=== PATIENT | female | born 1985 | race African-American/Black ===

== ENCOUNTER 2021-02-23 18:40 | Emergency (ER) | payer OTHER, SELFPAY ==
[2021-02-23] VITALS (7 sets, daily range): BP systolic 105–125; BP diastolic 60–75; PULSE 100–112; RESP 16–20; TEMP 37.5; O2SAT 98–100
--- NOTE | ~2021-02-23 | XR_ITS ---
EXAMINATION: XR chest 1V portable DATE: 02/23/2021 21:53 INDICATION: Shortness of breath and cough. Fever. TECHNIQUE: A single frontal view of the chest was obtained. COMPARISON: None. FINDINGS: Sensitivity is decreased by the patient's body habitus. There is no pneumonia, pleural effu carlton, or pneumothorax. The heart size is normal. IMPRESSION: 1. No acute cardiopulmonary disease. Reviewed, dictated and finalized at location A.
--- NOTE | 2021-02-23 18:49 | ED.GENADULT ---
HPI - General Adult General Chief complaint: Shortness of Breath/Dyspnea Stated complaint: sob Time Seen by Provider: 02/23/21 18:49 Source: patient Mode of arrival: ambulatory Limitations: no limitations History of Present Illness HPI narrative: Patient is here for worsening shortness of breath due to Covid symptoms. She was diagnosed on Friday, 4 days ago, and was for symptomatic 3 days prior to that. She has not been on any medications. She states that she just has exertional dyspnea. She continues to drink well, no cough, no fever. Related Data Allergies Allergy/AdvReac Type Severity Reaction Status Date / Time No Known Allergies Allergy Verified 02/23/21 18:53 Review of Systems Review of Systems: All systems reviewed & are unremarkable except as noted in HPI and below PMFSH Past Medical History Medical History Chlamydia UTI (urinary tract infection) Surgical History Surgical History History of section History of tonsillectomy Social History Social History Smoking status: Never smoker Exam Const: General: no acute distress and alert Orientation/consciousness: patient oriented x3 Other: dyspnea with exertion HENMT: Head: normal to inspection Mouth: Yes moist mucous membranes Throat: posterior oropharynx normal Eyes: Conjunctivae: conjunctivae normal Pupils: Equal, round and reactive pupils present Resp: Effort & Inspection: normal respiratory effort Auscultation: diminished lung sounds on the right Cardio: Rate: tachycardic Rhythm: regular rhythm GI: GI Palp: Yes Soft to palpation Skin: General skin exam: normal color Extrem: General: normal to inspection Psych: Mental Status: mental status grossly normal Course Course Emergency Course: Patient's chest x-ray is read as normal. Results were reviewed with her. Her oxygen level has stayed stable at 100%. Will treat with just dexamethasone at home. Discharge Plan Discharge Clinical Impression: COVID-19 Patient Disposition: Home, Self-Care Condition: Stable Instructions: Antibiotic Form, COVID-19 (Coronavirus Disease 2019) (ED) Additional Instructions: You received your first dose of dexamethasone here in the emergency room, you will need to start tomorrow evening. Continue to take it easy, activity as tolerated. You will have fatigue for some time after the virus is resolved. You may take ibuprofen or Tylenol for discomfort. Prescriptions: New dexamethasone 6 mg tablet 6 mg PO DAILY Qty: 4 RF: 0 No Action lidocaine 4 % adhesive patch,medicated 1 patch TOPICAL Q24H PRN (Reason: pain) 10 Days Qty: 10 RF: 0 ibuprofen 400 mg tablet 400 mg PO TID PRN (Reason: fever or pain) 10 Days Qty: 30 RF: 0 diazepam 5 mg tablet 5 mg PO HS PRN (Reason: pain, moderate) Qty: 10 RF: 0 acetaminophen [Tylenol] 325 mg capsule 325 mg PO ONCE 7 Days Qty: 30 RF: 0 Follow-up/Referrals: Elda,SIL Berg [Primary Care Provider] - Time of Disposition: 21:51
--- NOTE | 2021-02-23 19:30 | PC.NURSE ---
Assumed care of pt at this time, report taken from Larry RATLIFF.
[2021-02-23] MEDS: DEXAMETHASONE 2 MG TABLET 6 MG PO (20:13)
[2021-02-23] MEDS: SODIUM CHLORIDE 0.9% IV 1,000 ML 999 ML IV CONT (20:13)
== END 2021-02-23 22:03 | disposition home or self-care (01) ==
PROVIDERS: Emergency Provider Emergency Medicine; PCP Registered Nurse
DX: U07.1 COVID-19 (principal); Z87.440 Personal history of urinary (tract) infections; R00.0 Tachycardia, unspecified; R94.31 Abnormal electrocardiogram [ECG] [EKG]
CPT/HCPCS: 71045; 93005; 96360; 99283; J7030; J8540

== ENCOUNTER 2021-03-04 22:57 | Observation (INO) | payer OTHER, SELFPAY ==
--- NOTE | ~2021-03-04 | CT_ITS ---
EXAMINATION: CT abdomen pelvis wo con DATE: 03/05/2021 02:38 INDICATION: Right flank pain. Hematuria. TECHNIQUE: Computed tomography (CT) of the abdomen and pelvis was performed without intravenous contr ast. Automated exposure control and iterative reconstruction technique were employed. The dose-length product was 1241.01 mGy-cm. COMPARISON: None. FINDINGS: The visualized portions of the lung bases demonstrate patchy airspace and groundglass opaci ties bilaterally. No pleural effusion. The heart size is normal. No pericardial effusion. The liver, gallbladder, spleen, pancreas, adrenal glands, and left kidney are normal. There is a 1 mm stone in r ight kidney. There are no dilated loops of bowel. The appendix is not visualized. There is physiologi c fluid in the pelvis. There are no pathologically enlarged lymph nodes. There is mild thoracolumbar spondylosis. IMPRESSION: 1. 1 mm nonobstructing right kidney stone. 2. Multifocal lung disease, consistent with COVID-19 pneumonia. Reviewed, dictated and finalized at location A.
--- NOTE | ~2021-03-04 | CT_ITS ---
EXAMINATION: CTA chest PE protocol DATE: 03/05/2021 02:39 INDICATION: Shortness of breath. TECHNIQUE: Computed tomography angiography (CTA) of the chest was performed with 200 mL Omnipaque-350 intravenous contrast timed to evaluate the pulmonary arteries. Coronal maximum intensity projection 3D-reconstructions were created by the technologist. Automated exposure control and iterative reconst ruction technique were employed. The dose-length product was 1290.22 mGy-cm. COMPARISON: None. FINDINGS: There are patchy airspace and groundglass opacities involving all lobes. No pleural effusio n. The heart size is normal. No pericardial effusion. There are pulmonary emboli in basilar right low er lobe. There is mild thoracic spondylosis. IMPRESSION: 1. Acute pulmonary emboli in basilar right lower lobe. 2. Multifocal lung disease, consistent with COVID-19 pneumonia. Reviewed, dictated and finalized at location A.
[2021-03-04 23:00] VITALS: BP 122/85; PULSE 103; RESP 20; TEMP 37.4; O2SAT 99
[2021-03-05] VITALS (29 sets, daily range): BP systolic 97–136; BP diastolic 49–73; PULSE 84–111; RESP 12–30; TEMP 35.7–36.2; O2SAT 95–100; BMI 38.7
[2021-03-05 00:15] LABS: Basophils Percent Auto 0.2 % (0.2-1.2); Eosinophils Percent Auto 0.3 % (0-4.4); Hematocrit 33.4 % (37.0-47.0); Hemoglobin 10.3 g/dL (12.0-15.0); Immature Granulocyte Absolute 0.09 K/mm3 (0.00-0.031); Immature Granulocyte Percent A 0.7 % (0-0.5); Lymphocytes Absolute Auto 2.63 K/mm3 (0.9-3.2); Lymphocytes Percent Auto 21.6 % (18.3-44.2); Mean Corpuscular HGB Conc 30.8 g/dl (32-36); Mean Corpuscular Hemoglobin 22.2 pg (26-34); Mean Corpuscular Volume 72.1 fl (80-100); Mean Platelet Volume 10.3 fl (7.4-10.4); Monocytes Absolute Auto 0.9 K/mm3 (0.1-0.6); Monocytes Percent Auto 7.1 % (2.6-8.5); Neutrophils Absolute Auto 8.5 K/mm3 (1.3-6.7); Neutrophils Percent Auto 70.1 % (45.5-73.1); Platelet Count Result 371 k/mm3 (150-375); Red Blood Count 4.63 M/mm3 (4.2-5.4); Red Cell Distribution Width 14.6 % (11.5-14.5); White Blood Count 12.2 K/mm3 (4.5-10.0)
[2021-03-05 00:22] LABS: Add Urine Microscopic? YES; Appearance Urine Clear (Clear); Bacteria Urine Trace /hpf; Bilirubin Urine Negative (Negative); Blood Urine Negative (Negative); Color Urine Yellow (Yellow); Glucose Urine UA Negative (Negative); Ketones Urine Negative (Negative); Leukocyte Esterase Ur Negative LEU/UL (Negative); Mucus Urine Rare /lpf; Nitrate Urine Negative (Negative); Protein Urine 2+ mg/dL (Negative); Specific Grav Ur 1.028 (1.001-1.035); Squamous Epithelial Cell Urine Many /hpf (Few); WBC Urine 0-3 /hpf
[2021-03-05 00:32] LABS: Anion Gap 6 mmol/L (8-16); Blood Urea Nitrogen 14 mg/dL (7-17); Calcium 9.1 mg/dL (8.4-10.2); Carbon Dioxide 28 mmol/L (22-30); Chloride 104 mmol/L (98-107); Estimated CRCL calculation 112 ml/min; Estimated Glomerular Filt Rate > 60; Glucose 139 mg/dL (65-110); Potassium 4.1 mmol/L (3.4-5.0); Sodium 138 mmol/L (137-145)
--- NOTE | 2021-03-05 01:44 | ED.BACK ---
HPI - Back Pain/Injury General Chief Complaint: Back Pain/Injury Stated Complaint: Right flank pain Time Seen by Provider: 03/05/21 00:40 Source: patient and RN notes reviewed Mode of arrival: ambulatory Limitations: no limitations History of Present Illness HPI Narrative: This is a 35 year old female with COVID who presents for evaluation of right flank pain. She woke up this morning with sudden onset severe right mid back pain. Her pain has been constant and severe. She has taking Tylenol and used a heating pad without any relief. Her pain is worse with inspiration and breathing so she is short of breath. She states her pain does not radiate. She denies nausea or vomiting. She has been having intermittent fever due to her covid diagnosed. She developed symptoms of covid on 02/16/21 and she was found to be positive on 02/19/21 . She was evaluated in ER on 02/23/21 for shortness of breath and she was discharged with dexamethasone. Her chest xray did not show pneumonia at that time. Related Data Allergies Allergy/AdvReac Type Severity Reaction Status Date / Time No Known Allergies Allergy Verified 02/23/21 18:53 Review of Systems Review of Systems: All systems reviewed & are unremarkable except as noted in HPI and below PMFSH Past Medical History Medical History Chlamydia UTI (urinary tract infection) Surgical History Surgical History History of section History of tonsillectomy Social History Social History Smoking status: Never smoker Second hand tobacco smoke exposure: No Alcohol intake: current Substance use: current Substance use type: does not use Spiritual care concerns: No Exam Const: General: no acute distress and alert Orientation/consciousness: patient oriented x3 Eyes: EOM: EOMs intact bilaterally Chest: Chest palpation & inspection: normal inspection of the chest Resp: Effort & Inspection: normal respiratory effort and no retractions Auscultation: clear to auscultation bilaterally Cardio: Rate: regular rate Rhythm: regular rhythm Heart sounds: no murmurs : General: Yes CVA tenderness on the right OB/external & speculum: no herpetic lesions Skin: General skin exam: normal color Rashes: no rashes Neuro: General: patient oriented x3, moves all extremities and CN's II-XI intact bilaterally Psych: Mental Status: mental status grossly normal Affect: normal affect Course Reevaluation(s) Reevaluation #1: I discussed with patient that she was found to have pneumonia due to covid and pulmonary embolism as he cause her pain. She still states she is having severe pain . Will admit. She is agreeable Date: 03/05/21 Time: 05:00 Consultations Consultation #1: I Discussed case with Dr. Alcazar who accepts patient to medical service. Agrees with kevin. Date: 03/05/21 Time: 05:20 Vital Signs Vital signs: Vital Signs Temperature 99.3 F 03/04/21 23:00 Pulse Rate 103 H 03/04/21 23:00 Respiratory Rate 20 03/04/21 23:00 Blood Pressure 122/85 03/04/21 23:00 Pulse Oximetry 99 03/04/21 23:00 Temperature 99.3 F 03/04/21 23:00 Pulse Rate 96 03/05/21 07:32 Respiratory Rate 14 03/05/21 07:32 Blood Pressure 114/70 03/05/21 07:32 Pulse Oximetry 96 03/05/21 07:32 MDM - Back Pain/Injury Medical Records Attestation: I reviewed the patient's medical records. Lab Data Attestation: I reviewed the patient's lab results. Result diagrams: 03/04/21 23:39 03/04/21 23:39 Labs: Lab Results 03/04/21 03/04/21 03/04/21 Range/Units 23:39 23:39 23:40 WBC 12.2 H (4.5-10.0) K/mm3 RBC 4.63 (4.2-5.4) M/mm3 Hgb 10.3 L (12.0-15.0) g/dL Hct 33.4 L (37.0-47.0) % MCV 72.1 L (80-100) fl MCH 22.2 L (26-34) pg MCHC 30.8 L
[2021-03-05] MEDS: MORPHINE SULFATE (*CRX) 4 MG/ML INJ IV PUSH (01:47)
[2021-03-05] MEDS: ONDANSETRON INJ 4 MG/2 ML VIAL IV PUSH (01:48)
[2021-03-05] MEDS: SODIUM CHLORIDE 0.9% IV 1,000 ML 999 ML IV CONT (01:48)
[2021-03-05 02:59] LABS: Alanine Aminotransferase 21 U/L (4-35); Albumin Level 3.7 g/dL (3.5-5.1); Alkaline Phosphatase 44 U/L (38-126); Aspartate Amino Transferase 27 U/L (14-36); Bilirubin,Total 0.5 mg/dL (0.2-1.3)
[2021-03-05 03:00] LABS: INR 1.1; Prothrombin Time 14.2 Seconds (11.1-14.7)
[2021-03-05 03:01] LABS: Partial Thromboplastin Time 33.1 SECONDS (22.3-36.8)
[2021-03-05] MEDS: HYDROmorphone HCL INJ (*CRX) 1 MG/ML SYR 0.5 MG IV PUSH ×2 (04:19→11:40)
[2021-03-05] MEDS: ENOXAPARIN 120 MG/0.8 ML SYRINGE 110 MG SUB-Q ×2 (06:05→16:45)
--- NOTE | 2021-03-05 06:46 | PC.NURSE ---
SBar faxed to [phone].
--- NOTE | 2021-03-05 07:00 | PC.NURSE ---
Called x 2 to give report. No answer.
--- NOTE | 2021-03-05 07:08 | PC.NURSE ---
report to savanna eastman.
--- NOTE | 2021-03-05 07:57 | ADMGEN ---
This patient, Hilda Greene, was admitted to 3 Med Surg Room 307-01. Patient/family oriented to hospital policies and general routines including ID bracelet, bed and alarms, visiting hours, pain management, procedures, bathroom and other care routines, personal items, smoking policy, room service/diet, and visiting hours. Information on how to activate the Rapid Response Team has been discussed. Patient/Family are encouraged to report perceived risks to care and to ask questions if they do not understand what they are told or what they should do.
--- NOTE | 2021-03-05 11:23 | PM.IMHP ---
H&P: HPI History of Present Illness Date/Time: 03/05/21 11:23 Chief Complaint: Right-sided pain in lower chest Narrative: Patient is a 35-year-old lady with no significant past medical history, other than 3 C sections and COVID infection diagnosed last month for which she was treated as an outpatient with steroids, presenting with approximately 1 veins of severe right-sided pleuritic chest pain. Sharp pain, worse other pain she has felt before nonradiating. Deep breaths make it much worse. Some associated cough, however no hemoptysis. No lower extremity pain, and no period of immobilization. She was diagnosed with COVID few weeks ago, treated as an outpatient with steroids, completed the therapy. She is subjectively short of breath, however not hypoxic. Past medical history: No chronic medical conditions, does have COVID since a few weeks ago. Allergies: Denies any allergies Medications: Does not take any daily medications Family history: No major medical conditions run in her family as far she knows Social history: Denies any significant drug alcohol or tobacco use Surgeries: 3 C sections ER course: Patient is not hypoxic, and afebrile CBC significant for white count of 12.2, hemoglobin of 10.3, liver function studies normal, urinalysis without acute infection, negative chlamydia gonorrhea and Trichomonas test. CT showing multifocal lung disease consistent with COVID, and 1 mm nonobstructing right kidney stone. Acute pulmonary emboli in right lower lobe seen on CT angio, multifocal lung disease consistent with COVID-19. Review of Systems Review of Systems: All systems reviewed & are unremarkable except as noted in HPI and below PMFSH Past Medical History Medical History Chlamydia UTI (urinary tract infection) Surgical History Surgical History History of section History of tonsillectomy Social History Social History Smoking status: Never smoker Second hand tobacco smoke exposure: No Alcohol intake: current Substance use: current Substance use type: does not use Spiritual care concerns: No Meds Home Medications and Allergies Allergies Allergy/AdvReac Type Severity Reaction Status Date / Time No Known Allergies Allergy Verified 02/23/21 18:53 Vital Signs Vital Signs - 24 hr 03/04/21 23:00 03/05/21 01:00 03/05/21 01:28 Temperature 99.3 F Pulse Rate 103 H 110 H Respiratory Rate 20 29 H 25 H Blood Pressure 122/85 Pulse Oximetry 99 100 03/05/21 01:49 03/05/21 02:44 03/05/21 02:45 Temperature Pulse Rate 111 H 97 99 Respiratory Rate 30 H Blood Pressure Pulse Oximetry 98 98 98 03/05/21 03:00 03/05/21 03:17 03/05/21 03:30 Temperature Pulse Rate 97 97 98 Respiratory Rate 24 H Blood Pressure 136/56 L Pulse Oximetry 97 98 98 03/05/21 03:32 03/05/21 03:45 03/05/21 04:05 Temperature Pulse Rate 102 H 98 101 H Respiratory Rate 26 H 26 H Blood Pressure 110/65 Pulse Oximetry 99 97 98 03/05/21 04:15 03/05/21 04:16 03/05/21 04:17 Temperature Pulse Rate 99 99 100 Respiratory Rate 28 H Blood Pressure 106/67 Pulse Oximetry 97 97 97 03/05/21 04:32 03/05/21 04:45 03/05/21 04:47 Temperature Pulse Rate 98 109 H 103 H Respiratory Rate Blood Pressure 101/49 L Pulse Oximetry 97 97 97 03/05/21 05:00 03/05/21 05:21 03/05/21 05:30 Temperature Pulse Rate 100 99 94 Respiratory Rate 26 H Blood Pressure Pulse Oximetry 98 95 97 03/05/21 07:15 03/05/21 07:32 03/05/21 08:00 Temperature Pulse Rate 90 96 94 Respiratory Rate 12 14 Blood Pressure 114/70 Pulse Oximetry 95 96 03/05/21 08:22 Temperature 96.8 F L Pulse Rate 94 Respiratory Rate 22 H Blood Pressure 111/66 Pulse Oximetry 100 Exam Const: General: no acute distr
[2021-03-05 13:43] LABS: Lactic Acid Reflex 0.7 mmol/L (0.7-2.1)
[2021-03-05] MEDS: HYDROcodone/acetaminophen (*CRX) 5-325 MG TABLET 1 TAB PO (16:46)
[2021-03-05 18:51] LABS: Lipase 232 U/L (23-300)
[2021-03-05] MEDS: APIXABAN 5 MG TABLET 10 MG PO (21:17)
[2021-03-06] VITALS (9 sets, daily range): BP systolic 107–113; BP diastolic 58–68; PULSE 80–93; RESP 16–24; TEMP 35.9–36.3; O2SAT 98–100
[2021-03-06] MEDS: ENOXAPARIN 120 MG/0.8 ML SYRINGE 110 MG SUB-Q (06:42)
[2021-03-06 06:51] LABS: Basophils Percent Auto 0.3 % (0.2-1.2); Eosinophils Percent Auto 0.4 % (0-4.4); Hematocrit 28.4 % (37.0-47.0); Hemoglobin 8.8 g/dL (12.0-15.0); Immature Granulocyte Absolute 0.04 K/mm3 (0.00-0.031); Immature Granulocyte Percent A 0.4 % (0-0.5); Lymphocytes Absolute Auto 2.58 K/mm3 (0.9-3.2); Lymphocytes Percent Auto 28.6 % (18.3-44.2); Mean Corpuscular Hemoglobin 22.3 pg (26-34); Mean Corpuscular Volume 71.9 fl (80-100); Mean Platelet Volume 11.2 fl (7.4-10.4); Monocytes Absolute Auto 0.8 K/mm3 (0.1-0.6); Monocytes Percent Auto 8.6 % (2.6-8.5); Neutrophils Absolute Auto 5.6 K/mm3 (1.3-6.7); Neutrophils Percent Auto 61.7 % (45.5-73.1); Platelet Count Result 313 k/mm3 (150-375); Red Blood Count 3.95 M/mm3 (4.2-5.4); Red Cell Distribution Width 14.1 % (11.5-14.5)
[2021-03-06 07:08] LABS: Alanine Aminotransferase 20 U/L (4-35); Albumin Level 3.6 g/dL (3.5-5.1); Alkaline Phosphatase 45 U/L (38-126); Anion Gap 6 mmol/L (8-16); Aspartate Amino Transferase 22 U/L (14-36); Bilirubin,Total 0.8 mg/dL (0.2-1.3); Blood Urea Nitrogen 10 mg/dL (7-17); Calcium 8.3 mg/dL (8.4-10.2); Carbon Dioxide 23 mmol/L (22-30); Chloride 107 mmol/L (98-107); Estimated CRCL calculation 146 ml/min; Estimated Glomerular Filt Rate > 60; Glucose 106 mg/dL (65-110); Magnesium 1.9 mg/dL (1.6-2.3); Phosphorus 3.9 mg/dL (2.5-4.5); Potassium 4.1 mmol/L (3.4-5.0); Sodium 136 mmol/L (137-145)
[2021-03-06] MEDS: APIXABAN 5 MG TABLET 10 MG PO (09:33)
--- NOTE | 2021-03-06 13:41 | PC.NURSE ---
On 03/06/21, the student, [Donna Bermeo], provided care and completed [facility] documentation on this patient. I have reviewed the student's documentation and agree with the findings.
--- NOTE | 2021-03-06 14:43 | PM.DS ---
DS: Admitting Diagnosis Discharge Date 03/06/21 Admitting Diagnosis (1) Microcytic anemia: Code(s): D50.9 - Iron deficiency anemia, unspecified Status: Acute (2) Pulmonary embolism: Code(s): I26.99 - Other pulmonary embolism without acute cor pulmonale Status: Acute (3) Recent COVID 19 infection in recovery DS: Discharge Diagnosis Discharge Diagnosis (1) Microcytic anemia: Code(s): D50.9 - Iron deficiency anemia, unspecified Status: Acute (2) Pulmonary embolism: Code(s): I26.99 - Other pulmonary embolism without acute cor pulmonale Status: Acute (3) History of 2019 novel coronavirus disease (COVID-19): Code(s): Z86.16 - Personal history of COVID-19 Status: Acute DS: Summary Hospital Course Reason for hospitalization: chest pain Hospital Course: 35-year-old female who tested positive for coronavirus proximally 1 month ago now considered to be in recovery presents to the emergency room with chief complaint of chest pain. She was subsequently found to have PE on CTA and was admitted for anticoagulation therapy. Patient was transitioned from heparin drip to Eliquis prior to discharge. She has had a benign clinical course is discharged home in stable condition on room air. Three month supply of anticoagulation has been provided to patient at discharge and she is advised to follow-up with her primary care physician for ongoing care. Status at Discharge Functional status at discharge: independent ambulation Overall status at discharge: patient is back to baseline Time Spent with Patient Time attestation: Total time spent providing and/or coordinating discharge services: Exam Const: General: no acute distress Eyes: Sclera: sclerae normal EOM: EOMs intact bilaterally Neck: Neck: no JVD Resp: Effort & Inspection: normal respiratory effort GI: Other: Nondistended : Other: Not indicated Skin: General skin exam: normal color and no erythema Neuro: Other: AAOx3, cranial nerves intact Extrem: General: normal exam except as noted and no edema Psych: Mental Status: mental status grossly normal Speech and movement: Normal speech and movement present Affect: normal affect Thought content: Yes Normal thought content present DS: Data Data Completed and Pending Labs on day of discharge: Labs from last 24 hours 03/06/21 03/06/21 03/05/21 06:32 06:32 18:22 WBC 9.0 RBC 3.95 L Hgb 8.8 L Hct 28.4 L MCV 71.9 L MCH 22.3 L MCHC 31.0 L RDW 14.1 Plt Count 313 MPV 11.2 H Immature Gran % (Auto) 0.4 Neut % (Auto) 61.7 Lymph % (Auto) 28.6 [place] % (Auto) 8.6 H Eos % (Auto) 0.4 Baso % (Auto) 0.3 Lymph # (Auto) 2.58 [place] # (Auto) 0.8 H Eos # (Auto) 0.0 Baso # (Auto) 0.0 Abs Immat Gran (auto) 0.04 H Absolute Neuts (auto) 5.6 Absolute Nucleated RBC 0.0 Nucleated RBC % 0.0 Sodium 136 L Potassium 4.1 Chloride 107 Carbon Dioxide 23 Anion Gap 6 L BUN 10 Creatinine 0.60 L Estim Creat Clear Calc 146 Estimated GFR > 60 Glucose 106 Calcium 8.3 L Phosphorus 3.9 Magnesium 1.9 Total Bilirubin 0.8 AST 22 ALT 20 Alkaline Phosphatase 45 Total Protein 8.0 Albumin 3.6 Lipase 232 Discharge Plan Discharge Attending physician on discharge: Cherelle Breaux Discharging Clinician: Cherelle Breaux Anticipated Discharge Date/Time: 03/06/21 14:35 Patient Disposition: Home, Self-Care Activity: as tolerated Diet: regular Patient Instructions: Antibiotic Form, Apixaban (By mouth), Pulmonary Embolism (GEN), Kidney Stones (GEN), Pain Management (GEN) Stand Alone Forms: General Discharge Information Follow-up/Referrals: Dimitri,SIL Berg [Primary Care Provider] - Discharge Medications: New Eliquis 5 mg Tablet 5 mg PO .ASDIR 90 Days Qty: 94 RF: 0 acetaminophen [Tylenol] 325 mg tablet 325
== END 2021-03-06 16:14 | disposition home or self-care (01) ==
LOC: ANHED 03-05 06:19 → ANH3MEDSUR 03-05 11:29
PROVIDERS: Emergency Medicine; Internal Medicine; Admitting Provider Internal Medicine; Emergency Provider General Practice; PCP Registered Nurse; Visit Provider Hospitalist
DX: I26.99 Other pulmonary embolism without acute cor pulmonale (principal); Z86.16 Personal history of COVID-19; R07.89 Other chest pain; D50.9 Iron deficiency anemia, unspecified; N20.0 Calculus of kidney
CPT/HCPCS: 36415; 71275; 74176; 80048; 80053; 80076; 81001; 81025; 83605; 83690; 83735; 84100; 85025; 85610; 85730; 96361; 96372; 96374; 96375; 96376; 99291; A9270; G0378; J1170; J1650; J2270; J2405; J7030; Q9967

== ENCOUNTER 2021-12-12 09:14 | Emergency (ER) | payer OTHER, SELFPAY ==
[2021-12-12] VITALS (9 sets, daily range): BP systolic 124; BP diastolic 64; PULSE 102–120; RESP 15–25; TEMP 38.4; O2SAT 99–100
[2021-12-12 10:06] LABS: Influenza A QL RT-PCR Negative (Negative); Influenza B QL RT-PCR Negative (Negative); SARS-CoV-2 RNA PCR Positive
--- NOTE | 2021-12-12 10:18 | ED.URI ---
HPI - URI/Sore Throat General Chief Complaint: Upper Respiratory Infection Stated Complaint: covid symptoms since yesterday Time Seen by Provider: 12/12/21 09:16 History of Present Illness HPI Narrative: 35-year-old female presents emergency room for evaluation of fever, body aches, headache and sinus congestion. Patient states she has been around sick contacts who been recently diagnosed with COVID. Patient states that symptoms began yesterday, and has been intermittently taking Tylenol and ibuprofen and Mucinex to manage symptoms. Related Data Allergies Allergy/AdvReac Type Severity Reaction Status Date / Time No Known Allergies Allergy Verified 02/23/21 18:53 Review of Systems Review of Systems: CONSTITUTIONAL: Reports fever chills EYES: Denies visual changes, redness, or discharge. ENT: Reports rhinorrhea, congestion, sore throat, or otalgia. CARDIOVASCULAR: Denies chest pain, palpitations, or edema. RESPIRATORY: Reports cough GASTROINTESTINAL: Denies abdominal pain, nausea, vomiting, or diarrhea. GENITOURINARY: Denies dysuria or hematuria. SKIN: Denies rash or itching. MUSCULOSKELETAL: Denies back pain, joint pain, or myalgia. NEUROLOGIC: Denies headache, numbness, dizziness, or weakness. PSYCHIATRIC: Denies anxiety or depression. [facility] Past Medical History Medical History Chlamydia UTI (urinary tract infection) Surgical History Surgical History History of section History of tonsillectomy Social History Social History Smoking status: Never smoker Second hand tobacco smoke exposure: No Alcohol intake: current Substance use: current Substance use type: does not use Spiritual care concerns: No Exam Narrative: GENERAL: Ill-appearing, well-nourished, no physical limitations, and in no acute distress. HEAD: Normocephalic, atraumatic. EYES: Conjunctivae normal, PERRLA and EOMI. ENT: External nose normal, Nares clear, no rhinorrhea or epistaxis. Mucous membranes moist. Oropharynx without tonsillar hypertrophy exudate or other lesions. External ears normal, bilateral TMs normal bilaterally NECK: Supple. No meningeal signs. No adenopathy or masses. No carotid bruits or JVD CHEST: Clear to auscultation. No respiratory distress. No wheezes rales or rhonchi. No tenderness. HEART: Regular rate and rhythm. No murmur heard. Normal peripheral pulses. EXTREMITIES: Normal range of motion. No edema. No clubbing or cyanosis SKIN: Warm, dry, no rash. No noted wounds NEURO: No focal deficits. Alert and oriented x3. MAEW. CN's II-XI intact bilaterally, normal gait PSYCH: Cooperative. Normal mood and affect. Course Vital Signs Vital signs: Vital Signs Temperature 38.4 C H 12/12/21 09:20 Pulse Rate 117 H 12/12/21 09:20 Respiratory Rate 24 H 12/12/21 09:20 Pulse Oximetry 99 12/12/21 09:20 Temperature 38.4 C H 12/12/21 09:20 Pulse Rate 117 H 12/12/21 09:20 Respiratory Rate 24 H 12/12/21 09:20 Pulse Oximetry 100 12/12/21 09:34 Oxygen Delivery Room Air 12/12/21 09:34 MDM - URI/Sore Throat Lab Data Labs: Lab Results 12/12/21 Range/Units 09:20 Influenza A (RT-PCR) Negative (Negative) Influenza B (RT-PCR) Negative (Negative) SARS-CoV-2 RNA (RT-PCR) Positive A Discharge Plan Discharge Clinical Impression: COVID-19, Upper respiratory infection Patient Disposition: Home, Self-Care Condition: Stable Instructions: Antibiotic Form, COVID-19 (Coronavirus Disease 2019) (ED) Additional Instructions: Take Tylenol and ibuprofen as needed for pain. Continue taking Mucinex for cough Sudafed for the sinus congestion. Isolate per CDC guidelines. Prescriptions: New pseudoephedrine HCl 60 mg tablet 30 mg PO Q4-6H PRN (Reason: nasal congestion) Qty: 30 0RF Rx Instruct
[2021-12-12] MEDS: ACETAMINOPHEN 500 MG TABLET 1000 MG PO (10:47)
== END 2021-12-12 11:00 | disposition home or self-care (01) ==
LOC: ANHED 10:28
PROVIDERS: Emergency Provider Nurse Practitioner Family; PCP Registered Nurse
DX: U07.1 COVID-19 (principal)
CPT/HCPCS: 87502; 96372; 99283; A9270; C9803; J1100; U0003; U0005

== ENCOUNTER 2022-03-18 07:58 | Emergency (ER) | payer OTHER, SELFPAY ==
[2022-03-18 08:10] VITALS: BP 157/97; PULSE 90; RESP 16; TEMP 37.1; O2SAT 100
[2022-03-18] MEDS: ACETAMINOPHEN 500 MG TABLET 1000 MG PO (08:39)
[2022-03-18] MEDS: IBUPROFEN 400 MG TABLET 800 MG PO (08:39)
[2022-03-18 08:55] LABS: Influenza A QL RT-PCR Negative (Negative); Influenza B QL RT-PCR Negative (Negative); SARS-CoV-2 RNA PCR Negative
--- NOTE | 2022-03-18 08:55 | ED.GENADULT ---
HPI - General Adult General Chief complaint: Upper Respiratory Infection Stated complaint: uri Time Seen by Provider: 03/18/22 08:15 History of Present Illness HPI narrative: This is a 36-year-old female presenting ED with 2 days of URI symptoms. Patient notes that she has had headache, body aches, fever and chills. She hears high as 102 at home. She has taken Tylenol with some relief. She has a sick child at home. She denies chest pain, difficulty breathing, lower extremity edema, nausea vomiting or diarrhea. Related Data Home Medications Medication Instructions Recorded Confirmed No Home Medications 03/18/22 03/18/22 Allergies Allergy/AdvReac Type Severity Reaction Status Date / Time No Known Allergies Allergy Verified 03/18/22 08:15 Review of Systems Review of Systems: CONSTITUTIONAL: Denies night sweats. EYES: No eye pain ENT: Denies rhinorrhea CARDIOVASCULAR: Denies palpitations RESPIRATORY: Denies hemoptysis GASTROINTESTINAL: Denies hematemesis GENITOURINARY: Denies hematuria. SKIN: Denies rash MUSCULOSKELETAL: Denies myalgia. NEUROLOGIC: Denies weakness. PSYCHIATRIC: Denies delusions [facility] Past Medical History Medical History Chlamydia UTI (urinary tract infection) Surgical History Surgical History History of section History of tonsillectomy Social History Social History Smoking status: Never smoker Second hand tobacco smoke exposure: No Alcohol intake: current Substance use: current Substance use type: does not use Spiritual care concerns: No Exam Narrative: APPEARANCE: Patient is well-appearing Head tympanic membranes are normal, no erythema or exudates in the throat EYES: PERRLA/EOMI, NOSE: Normal no drainage NECK: Supple, Trachea midline RESPIRATORY: CTAB, No increased work of breathing. CARDIOVASCULAR: S1S2 appreciated no peripheral edema ABDOMINAL: Soft, nontender, nondistended, MUSCULOSKELETAl: No obvious deformities NEURO: Alert. Moving 4/4 extremities SKIN:: Warm, dry. Normal color PSYCHIATRIC: Normal affect Course Vital Signs Vital signs: Vital Signs Temperature 98.8 F 03/18/22 08:10 Pulse Rate 90 03/18/22 08:10 Respiratory Rate 16 10/31/22 08:10 Blood Pressure 157/97 H 03/18/22 08:10 Pulse Oximetry 100 03/18/22 08:10 Oxygen Delivery Room Air 03/18/22 08:10 Temperature 98.8 F 03/18/22 08:10 Pulse Rate 90 03/18/22 08:10 Respiratory Rate 16 03/18/22 08:10 Blood Pressure 157/97 H 03/18/22 08:10 Pulse Oximetry 100 03/18/22 08:10 Oxygen Delivery Room Air 03/18/22 08:10 Medical Decision Making MDM Narrative Medical decision making narrative: This a 36-year-old female presenting with URI symptoms. Flu and COVID been ordered. All tests were negative. She has been given Motrin Tylenol. She is well appearing with stable vital signs. Patient will be discharged with supportive care. Vital Signs Vital Signs: Vital Signs Temperature 98.8 F 03/18/22 08:10 Pulse Rate 90 03/18/22 08:10 Respiratory Rate 16 03/18/22 08:10 Blood Pressure 157/97 H 03/18/22 08:10 Pulse Oximetry 100 03/18/22 08:10 Oxygen Delivery Room Air 03/18/22 08:10 Temperature 98.8 F 03/18/22 08:10 Pulse Rate 90 03/18/22 08:10 Respiratory Rate 16 03/18/22 08:10 Blood Pressure 157/97 H 03/18/22 08:10 Pulse Oximetry 100 03/18/22 08:10 Oxygen Delivery Room Air 03/18/22 08:10 Lab Data Labs: Lab Results 03/18/22 Range/Units 08:14 Influenza A (RT-PCR) Negative (Negative) Influenza B (RT-PCR) Negative (Negative) SARS-CoV-2 RNA (RT-PCR) Negative Discharge Plan Discharge Clinical Impression: URI (upper respiratory infection) Patient Disposition: Home, Self-Care Condition: Stable Instru
[2022-03-18 09:23] VITALS: BP 137/88; PULSE 95; RESP 16; O2SAT 98
== END 2022-03-18 09:25 | disposition home or self-care (01) ==
PROVIDERS: Emergency Provider Emergency Medicine; PCP Registered Nurse
DX: J06.9 Acute upper respiratory infection, unspecified (principal); Z20.822 Contact with and (suspected) exposure to COVID-19; Z87.440 Personal history of urinary (tract) infections
CPT/HCPCS: 87502; 99283; A9270; U0003; U0005

== ENCOUNTER 2023-05-12 10:16 | Emergency (ER) | payer OTHER, SELFPAY ==
[2023-05-12 10:19] VITALS: BP 152/99; PULSE 80; RESP 16; TEMP 37.3; O2SAT 96
--- NOTE | 2023-05-12 11:35 | ED.EYEPROB ---
HPI - Eye Problem General Chief complaint: Eye Problems Stated complaint: eye pain Time Seen by Provider: 05/12/23 11:27 Source: patient Mode of arrival: ambulatory Limitations: no limitations History of Present Illness HPI Narrative: 37 YEARS OLD FEMALE DROVE HERSELF TO THE EMERGENCY ROOM COMPLAINING OF LEFT EYE PAIN WITH A LOT OF TEARING STARTED YESTERDAY. SHE DENIES ANY FEVER, CHILLS, NAUSEA, VOMITING, HEADACHE OR VISION CHANGE. PATIENT REPORTS HISTORY OF COMMON COLD OVER THE LAST 3 WEEKS WITH NASAL CONGESTION AND THE MULTIPLE BEEN BILLS INSIDE HER NOSTRILS BILATERALLY. PATIENT DOES NOT USE CONTACT LENSES, DENIES ANY POSSIBILITY OF FOREIGN BODY, PAIN MAINLY IN THE EYELIDS. Related Data Allergies Allergy/AdvReac Type Severity Reaction Status Date / Time No Known Allergies Allergy Verified 03/18/22 08:15 Review of Systems Review of Systems: All systems reviewed & are unremarkable except as noted in HPI and below Constitutional: Constitutional: Reports no additional constitutional complaints PMFSH Past Medical History Medical History Chlamydia UTI (urinary tract infection) Surgical History Surgical History History of section History of tonsillectomy Social History Social History Smoking status: Never smoker Second hand tobacco smoke exposure: No Alcohol intake: current Substance use: current Substance use type: does not use Spiritual care concerns: No Exam Narrative: GENERAL APPEARANCE: WELL-DEVELOPED, WELL-NOURISHED SKIN: NORMAL COLOR HEAD: NORMOCEPHALIC, NONTRAUMATIC EYES: CLEAR CONJUNCTIVA, TEARING BILATERALLY MORE ON THE LEFT EYE, SLIGHTLY BFFINESS OF THE LEFT UPPER AND LEFT LOWER EYELID UPPER EYELID FLIPPED SHOWING SLIGHT ERYTHEMATOUS CHANGES, NO BIMPLES OR DISCHARGE ENT: OROPHARYNX NORMAL, EARS NORMAL, MULTIPLE TINY PIMPLE AT THE ENTRANCE OF THE NOSTRILS BILATERALLY NECK: SUPPLE, NONTENDER CHEST AND RESPIRATORY: AIRWAY PATENT, NO RESPIRATORY DISTRESS, NO ACCESSORY MUSCLE USE HEART: REGULAR RATE/RHYTHM ABDOMEN: SOFT, NONTENDER, NO ORGANOMEGALY, QUIET BOWEL SOUNDS VASCULAR: NORMAL PERIPHERAL PULSES, NORMAL CAPILLARY REFILL. MUSCULOSKELETAL: NORMAL RANGE OF MOTION, NONTENDER BACK NEUROLOGIC: ALERT AND ORIENTED ?3, PHYSICIST ACOUSTICS IS NORMAL TESTED, NO GROSS MOTOR DEFICIT Course Vital Signs Vital signs: Vital Signs Temperature 37.3 C 05/12/23 10:19 Pulse Rate 80 05/12/23 10:19 Respiratory Rate 16 05/12/23 10:19 Blood Pressure 152/99 H 05/12/23 10:19 Pulse Oximetry 96 05/12/23 10:19 Oxygen Delivery Room Air 05/12/23 10:19 Temperature 37.3 C 05/12/23 10:19 Pulse Rate 80 05/12/23 10:19 Respiratory Rate 16 05/12/23 10:19 Blood Pressure 152/99 H 05/12/23 10:19 Pulse Oximetry 96 05/12/23 10:19 Oxygen Delivery Room Air 05/12/23 10:19 MDM - Eye Problem MDM Narrative Medical decision making narrative: VISUAL ACUITY 20/30 BILATERALLY, PHYSICAL EXAMINATION SHOWED NO CONJUNCTIVITIS ON THE LEFT EYE, ON THE TEARS AND SLIGHT PUFFINESS OF THE UPPER AND LOWER EYELID, VIRAL CONJUNCTIVITIS IS A POSSIBILITY, MY PLAN TO TREAT WITH POLYTRIM EYE DROPS JUST IN CASE OF BLEPHARITIS. THIS EXAM SHOWED POSSIBLE NASAL STAPH INFECTION., POSSIBLE COLD SORES, pATIENT WILL BE DISCHARGED ON BACTRIM AND BACTROBAN OINTMENT. AND VALTREX. IN THE ED PATIENT RECEIVED 1 TABLET OF NORCO AND 600 MG OF IBUPROFEN P.O. PRIOR TO DISCHARGE WAS ADVISED TO FOLLOW-UP WITH [facility]ANT PHYSIOLOGY TEACHER IF THERE IS NO IMPROVEMENT OR IF SHE IS GETTING WORSE
[2023-05-12] MEDS: IBUPROFEN 600 MG TABLET PO (11:48)
[2023-05-12] MEDS: HYDROcodone/acetaminophen (*CRX) 5-325 MG TABLET 1 TAB PO (11:48)
== END 2023-05-12 12:03 | disposition home or self-care (01) ==
PROVIDERS: Emergency Provider Emergency Medicine; PCP Registered Nurse
DX: H10.9 Unspecified conjunctivitis (principal); A49.02 Methicillin resistant Staphylococcus aureus infection, unspecified site; B00.1 Herpesviral vesicular dermatitis
CPT/HCPCS: 99283; A9270

== ENCOUNTER 2024-06-25 07:38 | Emergency (ER) | payer OTHER, SELFPAY ==
[2024-06-25 07:41] VITALS: BP 148/94; PULSE 113; RESP 14; TEMP 37.2; O2SAT 100
--- OUTSIDE RECORDS SUMMARY | 2024-06-25 07:43 | XMS_ITS | Patient Health Record ---
Author Organization 1 OF [facility] Address [address] [place] [address] Care Team Providers Care Teacher Asst Name Role Phone UNKNOWN, UNKNOWN Primary Care Provider Unavailab Dimitri Yip Unavailable Reason For Referral No Information Social History Tobacco Use: Social History Observation Description Date Details (start date - stop date) Never Smoker NA - NA Tobacco Use/Smoking Question Answer Notes Are you a nonsmoker Problems Problem Type SNOMED Code ICD Code Onset Dates Problem Status W/U Status Risk Notes Problem [id number] Hammertoe of right foot (M20.41) Active confirmed Plan Of Treatment No Information Medical (General) History Surgical History Surgery Date(Month/Year)
--- OUTSIDE RECORDS SUMMARY | 2024-06-25 07:43 | XMS_ITS | Clinical Summary ---
Author Organization [facility] Address [address] [place] [address] Care Team Providers Care Motor Vehicle Assembly Supervisor Name Role Phone Morena Schroeder SUBGRADE ROLLER OPERATOR-AUDIT ANALYST Primary Care Provider Source Comments [facility],non-owned Affiliates and Associated Physician Practices is amultiple site organization consisting of ambulatory clinics and hospital sitesin [place], [place], [place] and [place]. This disclosure is being madepursuant to the Care Everywhere program and may not contain all information available regarding this patient. Last updated 18.[employer]WishBoard Allergies No known active allergies Medications Be aware that medications may not be up to date on this document. Always verify current medications with the patient. No known medications Active Problems Patient Care Coordination No te Formatting of this note migh t be different from the original. [id number] Problem Noted Date Diagnosed Date Obesity, Class III, BMI 40-49.9 (morbid obesity) 09/20/2023 History of 01/17/2020 Syncope 12/29/2019 Chronic right-sided thoracic back pain 0 Abnormal Pap smear 03/26/2009 Overview (08/22/2014): 09/2008 ASCUS, positive HPV 12/2009 ASC-H Pt never came for her colpo 05/2012 HGSIL Colpo 09/23/2012, unsatisfactory, ECC negative Patient declined LEEP at that time Has not had Gardasil History of abnormal cervical Pap smear Resolved Problems Problem Noted Date Diagnosed Date Resolved Date Screen for STD (sexually transmitted disease) 08/27/19 24 09/20/2023 Fever 01/22/2020 02/05/2020 H/O: 06/23/2019 09/20/2023 Overview (12/22/2019): X 2. Desires repeat 06/23/2019 09/20/2023 Overview (06/23/2019): Supervision of : PNL collection date and results: pending 06/23 GCT: 24-28 weeks Tdap: offer at 28 wks HIV: GBS: 35 wga Dating: LMP=9 week US H/H/Plt: Hgb Elec: @massiel(3891)@ Genetic screening or testing: Pap: 01/2019 ASCUS-H/ HPV + needs colpo PP Gc/Chl: pending UCx: Breast/Formula: Family Planning: Flu: Bartholin's gland cyst (recurrent) 09/15/2010 08/22/2014 Overview (09/15/2010): Multiple ER visits since 2008 (~4 ER visits) Fever 04/23/2009 04/24/2009 abnormality in 03/31/2009 04/20/2009 Overview (11/22/2009): Thyroglossal duct cyst Delivered on 04/20/2009 Overweight 03/31/2009 08/22/2014 Overview (03/26/2015): H/O: 03/26/2009 08/22/2014 Anemia 03/26/2009 08/22/2014 Lower urinary tract infectious disease 03/26/2009 08/22/2014 Overview (03/26/2015): Adult BMI 27.0-27.9 kg/sq m 03/26/2009 08/22/2014 Encounter for well woman exa m with routine gynecological exam 09/20/2023 Screening, , for ma lformation by ultrasound 09/20/2023 Maternal obesity affecting p regnancy, antepartum 09/20/2023 Immunizations Name Administration Dates Next Due TDAP (7yrs+) 10/21/2019 Family History Medical History Relation Name Comments None Known Father None Known Mother Relation Name Status Comments Father Mother Alive Social History Tobacco Use Types Packs/Day Years Used Date Smoking Tobacco: Never Smokeless Tobacco: Never Tobacco Cessation:Counseling Given: Not Answered Alcohol Use Standard Drinks/Week Comments No 0 (1 standard drink = 0.6 oz pur e alcohol) PHQ-2 Answer Date Recorded Patient Health Questionnaire-2 Score 0 10/03/2023 Sex and Gender Information Value Date Recorded Sex Assigned at Not on file Gender Identity Not on file Sexual Orientation Not on file Last Filed Vital Signs Vital Sign Reading Time Taken Comments Blood Pressure 140/70 10/03/2023 11:52 AM CDT Pulse 83 01/22/2020 2:52 AM CDT Temperature 35.8 C (96.4 F) 08/15/2020 11:17 AM CDT Respiratory Rate 16 01/23/2020 10:1 5 AM CDT Oxygen Saturation 99% 01/23/2020 10: 15 AM CDT Inhaled Oxygen Concentration - - Weight 118.3 kg (260 lb 12.8 oz) 2023 11:52 AM CDT Height 170.2 cm (5' 7 ) 10/03/2023 11:5 2 AM CDT Body Mass Index 40.85 10/03/2023 11:52 AM CDT Plan of Treatment Upcoming Encounters Date Type Department Care Team (Late st Contact Info) Description 09/01/2024 11:10 AM CDT Office Visit [facility] - ANESTHESIOLOGIST/PHYSICIAN [address] [place] [address] Yarelis Arauz, SUBGRADE ROLLER OPERATOR-PRESTON [address] [place] [address] Health Maintenance Due Date Last Done Comments HEPATITIS B VACCINE (1 of 3 - 19+ 3-dose series) 12/23/2006 COVID-19 VACCINE ( - 2023- season) 2024 04/07/2021, 03/17/2021 INFLUENZA VACCINE (#1) 2024 DEPRESSION SCREENING 05/19/2024 08/27/2023 PAP with HPV 08/26/2028 08/27/2023, 08/17, 02/10/2019, Additional history exists DTAP/TDAP/TD VACCINES (2 - Td or Tdap) 10/20/2029 10/21/2019 ZOSTER VACCINE (1 of 2) 12/23/2037 HEPATITIS C SCREENING Completed 02/10/2019 , 12/31/2017, 09/11/2015, Additional history exists HIV SCREENING Completed 08/27/2023, 08/2019, 06/23/2019, Additional history exists HIB VACCINE Aged Out No longer eligi ble based on patient's age to complete this topic HPV VACCINE Aged Out No longer eligi ble based on patient's age to complete this topic MENINGOCOCCAL (Group B) VACCINE Aged Out No longer eligible based on patient's age to complete this topic MENINGOCOCCAL VACCINE Aged Out No sherin jose eligible based on patient's age to complete this topic PNEUMOCOCCAL VACCINE Aged Out No long er eligible based on patient's age to complete this topic Procedures Procedure Name Priority Date/Time Associated Diagnosis Comments HPV DETECTION HIGH RISK CHLOE Routine 08/27/2023 3:57 PM CDT Encounter for well woman exam with routine gynecological exam HIV-1 HIV-2 ANTIBODY + HIV P24 AG PANEL Routine 08/27/2023 Screen for STD (sexually transmitted disease) HEPATITIS C ANTIBODY Routine 02/10/2019 12:24 PM CDT Encounter for well woman exam with routine gynecological exam from Last 3 Months or Most Recently Relevant to Health Maintenance Results * (ABNORMAL) HPV DETECTION HIGH RISK CHLOE (08/27/2023 3:57 PM CDT) High Risk Human Papilloma Result Detected( A) Not detected 09/03/2023 6:07 AM CDT [facility] High Risk Human Papilloma Interp 09/03/2023 6:07 AM CDT [facility] Comment:High Risk Human Yonatan lloma Virus - Detected Pathology/Cytolo gy MISCELLANEOUS SAMPLES / Unknown 08/27/2023 3:57 PM CDT 08/28/2023 11:46 AM CDT Narrative [facility] - 09/03/2023 6:07 AM CDT Nucleic acid isolated from the specimen was analyzed with a nucleic acid amplification test (FDA approved Gen-Probe HPV Assay) to detect high risk human papilloma virus (Types: 16, 18, 31, 33, 35, 39, 45, 51, 52, 56, 58, 59, 66, and 68). The reference range is Not Detected . Comment: These test results should not be used as the sole basis for clinical assessment and treatment of patients. These results should always be correlated with other available data (cytology, histology, and clinical information). Yarelis Arauz [facility] - MICROBIOLOGY ORDERABLES [facility] [address] [place] [address], [place] [phone] * HIV-1 HIV-2 ANTIBODY + HIV P24 AG PANEL (08/27/2023) HIV Screen 4th Generation w Reflex NON-REACT DONNA NON-REACT DONNA [facility] Comment: HIV-1 antigen and HIV-1/HIV-2 antibodies were not detected. There is no laboratory evidence of HIV infection. PLEASE NOTE: This information has been disclosed to you from records whose confidentiality may be protected by state law. If your state requires such protection, then the state law prohibits you from making any further disclosure of the information without the specific written consent of the person to whom it pertains, or as otherwise permitted by law. A general authorization for the release of medical or other information is NOT sufficient for this purpose. For additional information please refer to http://education.Integrate.CCTV Wireless/faq/TUH496 (This link is being provided for informational/ educational purposes only.) The performance of this assay has not been clinically validated in patients less than 2 years old. Test Performed at: [facility] [address] [place] [address] RAZA HARDIN MD Blood BLOOD SPECIMEN / Unknown 08/27/2023 08/27/2023 2:57 PM CDT Yarelis Arauz APRN-AUDIT ANALYST LAB - CHEMISTRY OR DERABLES Performing Organization Address [facility] de Phone Number [facility] [address] [place] [address] * HEPATITIS C ANTIBODY (02/10/2019 12:24 PM CDT) HCV Antibody Screen Non Reactive Non Reactive 02/10/2019 1:41 PM CDT [facility] HCV S/C Ratio 0.07 0.00 - 0.79 02/10/2019 1:41 PM CDT [facility] Comment: Tvnqfj-aj-ndhtax ratio (S/CO) <0.80: Non Reactive Blood BLOOD SPECIMEN / Unknown Venipuncture / Unknown 02/10/2019 12:24 PM CDT 02/10/2019 12:47 PM CDT Narrative [facility] - 02/10/2019 1:41 PM CDT Non Reactive - Antibodies to Hepatitis C virus (HCV) were not detected, result does not exclude early acute HCV infection. Louise Gardner MD LAB - CHEMISTRY O RDERABLES Performing Organization Address [facility] de Phone Number [facility] [address] [place] [address] from Last 3 Months or Most Recently Relevant to Health Maintenance Advance Directives * Full Code (Latest Code Status on File) Date Activated Date Inactivated Comments 01/17/2020 8:51 AM 01/20/2020 2:23 PM * Full Code Date Activated Date Inactivated Comments 12/29/2019 1:31 AM 12/29/2019 5:49 AM * Full Code Date Activated Date Inactivated Comments 04/20/2009 5:46 PM 04/25/2009 4:05 AM * Full Code Date Activated Date Inactivated Comments 04/13/2009 2:35 AM 04/13/2009 5:15 PM * Full Code Date Activated Date Inactivated Comments 03/31/2009 9:45 AM 04/01/2009 5:37 AM Care Teams Motor Vehicle Assembly Supervisor Relationship Specialty Start Date End Date Morena Schroeder APRN-AUDIT ANALYST [address] [place] [id number] PCP - General 06/23/19
--- OUTSIDE RECORDS SUMMARY | 2024-06-25 07:43 | XMS_ITS | Patient Health Summary ---
Author Organization [facility] Address [address] [place] [address] Care Team Providers Care Campaign Advisor Name Role Phone Morena Schroeder EDUCATION AND TRAINING MANAGER-INSIDE SALES CONSULTANT Primary Care Provider Note from [facility],non-owned Affiliates and Associated Physician Practices is amultiple site organization consisting of ambulatory clinics and hospital sitesin [place], [place], [place] and [place]. This disclosure is being madepursuant to the Care Everywhere program and may not contain all information available regarding this patient. Last updated 18.[facility] Allergies No known active allergies Medications Be aware that medications may not be up to date on this document. Always verify current medications with the patient. 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) 09/20/2023 History of 01/17/2020 Syncope 12/29/2019 Chronic right-sided thoracic back pain 0 Abnormal Pap smear 03/26/2009 History of abnormal cervical Pap smear Resolved Problems Problem Noted Date Diagnosed Date Resolved Date Screen for STD (sexually transmitted disease) 08/27/19 24 09/20/2023 Fever 01/22/2020 02/05/2020 H/O: 06/23/2019 09/20/2023 06/23/2019 09/20/2023 Bartholin's gland cyst (recurrent) 09/15/2010 08/22/2014 Fever 04/23/2009 04/24/2009 abnormality in 03/31/2009 04/20/2009 Overweight 03/31/2009 08/22/2014 H/O: 03/26/2009 08/22/2014 Anemia 03/26/2009 08/22/2014 Lower urinary tract infectious disease 03/26/2009 08/22/2014 Adult BMI 27.0-27.9 kg/sq m 03/26/2009 08/22/2014 Encounter for well woman exa m with routine gynecological exam 09/20/2023 Screening, , for ma lformation by ultrasound 09/20/2023 Maternal obesity affecting p regnancy, antepartum 09/20/2023 Immunizations * TDAP (7yrs+)(Given 10/21/2019) Social History Tobacco Use Types Packs/Day Years [...] Mass Index 40.85 10/03/2023 11:52 AM CDT Procedures * PATHOLOGY TISSUE(Performed 09/16/2023) Performed for ASCUS with positive high risk HPV cervical * HCG URINE QUALITATIVE - POINT OF CARE (AMB)(Performed 09/16/2023) Performed for ASCUS with positive high risk HPV cervical * PAP IMAGE-GUIDED W HPV+CT/NG+TRICH(Performed 08/27/2023) Performed for Encounter for well woman exam with routine gynecological exam * HPV GENOTYPES 16,18/45(Performed 08/27/2023) Performed for Encounter for well woman exam with routine gynecological exam * C. TRACHOMATIS + N. GONORRHOEAE + TRICH CHLOE(Performed 08/27/2023) Performed for Encounter for well woman exam with routine gynecological exam * HPV DETECTION HIGH RISK CHLOE(Performed 08/27/2023) Performed for Encounter for well woman exam with routine gynecological exam * TREPONEMA PALLIDUM POS REFLX RPR(Performed 08/27/2023) Performed for Screen for STD (sexually transmitted disease) * HIV-1 HIV-2 ANTIBODY + HIV P24 AG PANEL(Performed 08/27/2023) Performed for Screen for STD (sexually transmitted disease) * IMAGING/RADIOLOGY/XRAY RESULTS ORDER(Performed 01/26/2020) * LACTIC ACID BLOOD(Performed 01/22/2020) Performed for Fever, unspecified fever cause * LACTIC ACID BLOOD(Performed 01/22/2020) Performed for Fever, unspecified fever cause * CULTURE BLOOD(Performed 01/22/2020) Performed for Fever, unspecified fever cause * CULTURE BLOOD(Performed 01/22/2020) Performed for Fever, unspecified fever cause * XR CHEST 1VW PORTABLE(Performed 01/22/2020) Performed for Fever, unspecified fever cause * URINE MICROSCOPIC ONLY(Performed 01/22/2020) Performed for Fever, unspecified fever cause * URINALYSIS REFLEX TO MICROSCOPIC NO CULTURE(Performed 01/22/2020) Performed for Fever, unspecified fever cause * CULTURE URINE(Performed 01/22/2020) Performed for Fever, unspecified fever cause * PROTEIN CREATININE RATIO URINE RANDOM PNL(Performed 01/22/2020) Performed for Fever, unspecified fever cause * LDH BLOOD(Performed 01/22/2020) Performed for Fever, unspecified fever cause * CBC W AUTO DIFFERENTIAL(Performed 01/22/2020) Performed for Fever, unspecified fever cause * COMPREHENSIVE METABOLIC PANEL(Performed 01/22/2020) Performed for Fever, unspecified fever cause * LACTIC ACID BLOOD(Performed 01/22/2020) Performed for Fever, unspecified fever cause * IMAGING/RADIOLOGY/XRAY RESULTS ORDER(Performed 01/21/2020) * CBC W AUTO DIFFERENTIAL(Performed 01/18/2020) * BLOOD GASES CORD ARTERIAL(Performed 01/17/2020) * BLOOD GASES CORD KEVIN(Performed 01/17/2020) * NEURAXIAL BLOCK(Performed 01/17/2020) * SECTION (REPEAT)(Performed 01/17/2020) * PREPARE RBC LEUKOREDUCED UNIT(Performed 01/17/2020) Performed for History of * BLOOD TYPE VERIFICATION(Performed 01/17/2020) * TYPE + SCREEN PANEL(Performed 01/17/2020) * CBC W AUTO DIFFERENTIAL(Performed 01/17/2020) * URINALYSIS - POINT OF CARE (AMB) [facility](Performed 01/13/2020) Performed for Encounter for supervision of other normal in third trimester ([facility]) * URINALYSIS - POINT OF CARE (AMB) [facility](Performed 01/06/2020) Performed for Encounter for supervision of other normal in third trimester ([facility]) * URINALYSIS - POINT OF CARE (AMB) [facility](Performed 12/30/2019) Performed for Encounter for supervision of other normal in third trimester ([facility]) * NONSTRESS TEST(Performed 12/29/2019) Performed for Syncope, unspecified syncope type * URINE MICROSCOPIC ONLY REFLEX TO CULTURE(Performed 12/29/2019) Performed for Abdominal cramping * URINALYSIS REFLEX MICROSCOPIC REFLEX CULTURE(Performed 12/29/2019) Performed for Abdominal cramping * CULTURE URINE(Performed 12/29/2019) Performed for Abdominal cramping * CHLAMYDIA + GC AMPLIFIED PROBE(Performed 12/29/2019) Performed for Abdominal cramping * TRICHOMONAS RAPID TEST(Performed 12/29/2019) Performed for Abdominal cramping * IMAGING/RADIOLOGY/XRAY RESULTS ORDER(Performed 12/23/2019) * CULTURE STREP B(Performed 12/22/2019) Performed for Encounter for supervision of normal in third trimester, unspecified ([facility]) * NH SONO FU OR REPEAT(Performed 12/22/2019) Performed for Marginal insertion of umbilical cord affecting management of mother in third trimester ([facility]) * URINALYSIS - POINT OF CARE (AMB) [facility](Performed 12/22/2019) Performed for Encounter for supervision of normal in third trimester, unspecified ([facility]) * IMAGING/RADIOLOGY/XRAY RESULTS ORDER(Performed 11/23/2019) * NH SONO FU OR REPEAT(Performed 11/22/2019) Performed for Marginal insertion of umbilical cord affecting management of mother in third trimester ([facility]), Evaluate anatomy not seen on prior sonogram, Encounter for ultrasound to assess growth ([facility]) * NH DOPPLER VELOCIMETRY ; UMBILICAL ARTERY(Performed 11/22/2019) Performed for Marginal insertion of umbilical cord affecting management of mother in third trimester ([facility]), Evaluate anatomy not seen on prior sonogram, Encounter for ultrasound to assess growth ([facility]) * URINALYSIS - POINT OF CARE (AMB) [facility](Performed 11/22/2019) Performed for Encounter for supervision of normal in third trimester, unspecified ([facility]) * IMAGING/RADIOLOGY/XRAY RESULTS ORDER(Performed 10/22/2019) * RPR W REFLEX TO TITER+CONFIRM(Performed 10/21/2019) Performed for Encounter for supervision of other normal in second trimester ([facility]) * HIV-1 HIV-2 ANTIBODY + HIV P24 AG PANEL(Performed 10/21/2019) Performed for Encounter for supervision of other normal in second trimester ([facility]) * CBC W AUTO DIFFERENTIAL(Performed 10/21/2019) Performed for Encounter for supervision of other normal in second trimester ([facility]) * GTT 1 HR (50G) GESTATIONAL SCREEN(Performed 10/21/2019) Performed for Encounter for supervision of other normal in second trimester ([facility]) * URINALYSIS - POINT OF CARE (AMB) [facility](Performed 10/21/2019) Performed for Encounter for supervision of other normal in second trimester ([facility]) * URINALYSIS - POINT OF CARE (AMB) [facility](Performed 07/22/2019) Performed for Encounter for supervision of other normal in second trimester ([facility]) * IMAGING/RADIOLOGY/XRAY RESULTS ORDER(Performed 06/24/2019) * HIV-1 HIV-2 ANTIBODY + HIV P24 AG PANEL(Performed 06/23/2019) * HEMOGLOBIN SOLUBILITY REFLX FRAC(Performed 06/23/2019) Performed for Encounter for supervision of other normal in first trimester ([facility]) * PROFILE I W/ HBSAG(Performed 06/23/2019) Performed for Encounter for supervision of other normal in first trimester ([facility]) * CULTURE URINE(Performed 06/23/2019) Performed for Encounter for supervision of other normal in first trimester ([facility]) * C. TRACHOMATIS + N. GONORRHOEAE + TRICH CHLOE(Performed 06/23/2019) Performed for Encounter for supervision of other normal in first trimester ([facility]) * NH ULTRASOUND, UTERUS(Performed 06/23/2019) Performed for Encounter to determine viability of , single or unspecified fetus ([facility]) * URINALYSIS - POINT OF CARE (AMB) [facility](Performed 06/23/2019) Performed for Encounter for supervision of other normal in first trimester ([facility]) * PAP LB HPV HR DNA(Performed 02/10/2019) Performed for Encounter for well woman exam with routine gynecological exam * URINALYSIS REFLEX MICROSCOPIC REFLEX CULTURE(Performed 02/10/2019) Performed for Encounter for well woman exam with routine gynecological exam * TRICHOMONAS RAPID TEST(Performed 02/10/2019) Performed for Encounter for well woman exam with routine gynecological exam * CHLAMYDIA + GC AMPLIFIED PROBE(Performed 02/10/2019) Performed for Encounter for well woman exam with routine gynecological exam * SYPHILIS ANTIBODY CASCADING REFLEX(Performed 02/10/2019) Performed for Well woman exam with routine gynecological exam * HEPATITIS B SURFACE ANTIGEN W RFLX CONFIRMATION(Performed 02/10/2019) Performed for Encounter for well woman exam with routine gynecological exam * HEPATITIS C ANTIBODY(Performed 02/10/2019) Performed for Encounter for well woman exam with routine gynecological exam * HIV-1 HIV-2 ANTIBODY + HIV P24 AG PANEL(Performed 02/10/2019) Performed for Encounter for well woman exam with routine gynecological exam * HCG URINE QUALITATIVE - POINT OF CARE(Performed 02/10/2019) Performed for Encounter for well woman exam with routine gynecological exam * LIPID PROFILE(Performed 12/31/2017) Performed for Women's annual routine gynecological examination * TSH(Performed 12/31/2017) Performed for Women's annual routine gynecological examination * HEMOGLOBIN A1C(Performed 12/31/2017) Performed for Women's annual routine gynecological examination * COMPREHENSIVE METABOLIC PANEL(Performed 12/31/2017) Performed for Women's annual routine gynecological examination * CBC W AUTO DIFFERENTIAL(Performed 12/31/2017) Performed for Women's annual routine gynecological examination * HEPATITIS C ANTIBODY(Performed 12/31/2017) Performed for Women's annual routine gynecological examination * HEPATITIS B SURFACE ANTIGEN W RFLX CONFIRMATION(Performed 12/31/2017) Performed for Women's annual routine gynecological examination * RPR(Performed 12/31/2017) Performed for Women's annual routine gynecological examination * HIV-1 HIV-2 ANTIBODY + HIV P24 AG PANEL(Performed 12/31/2017) Performed for Women's annual routine gynecological examination * TRICHOMONAS RAPID TEST(Performed 12/31/2017) Performed for Women's annual routine gynecological examination * CHLAMYDIA + GC AMPLIFIED PROBE(Performed 12/31/2017) Performed for Women's annual routine gynecological examination * PAP LB RFLX HPV ASCU(Performed 12/31/2017) Performed for Women's annual routine gynecological examination * HPV DNA PROBE HIGH RISK(Performed 12/31/2017) Performed for Women's annual routine gynecological examination * HCG URINE QUALITATIVE - POINT OF CARE(Performed 12/31/2017) Performed for Encounter for well woman exam with routine gynecological exam * PAP LB HPV HR DNA(Performed 09/11/2015) * HIV-1 HIV-2 ANTIBODY + HIV P24 AG PANEL(Performed 09/11/2015) * HEPATITIS SCREEN ACUTE(Performed 09/11/2015) * RPR(Performed 09/11/2015) * CHLAMYDIA + GC AMPLIFIED PROBE(Performed 09/11/2015) * CYTOLOGY CERVICAL/VAG THIN PREP+HPV(Performed 08/22/2014) Performed for Abnormal Pap smear * HEPATITIS SCREEN ACUTE(Performed 08/22/2014) * HIV-1 HIV-2 ANTIBODY + HIV P24 AG PANEL(Performed 08/22/2014) * RPR(Performed 08/22/2014) * CHLAMYDIA + GC AMPLIFIED PROBE(Performed 08/22/2014) * HCG URINE QUALITATIVE - POINT OF CARE(Performed 09/23/2012) * PATHOLOGY TISSUE EXAM (STL)(Performed 09/23/2012) * CARDIAC RHYTHM STRIP ORDER(Performed 08/20/2012) * CULTURE TISSUE+GRAM STAIN(Performed 08/12/2012) Performed for Bartholin's gland cyst (recurrent) * CULTURE ANAEROBE(Performed 08/12/2012) Performed for Bartholin's gland cyst (recurrent) * MARSUPIALIZATION/EXCISION BARTHOLIN'S GLAND/CYST(Performed 08/12/2012) Performed for RECURRENT LEFT BARTHOLIN GLAND CYST * HCG URINE QUALITATIVE - POINT OF CARE(Performed 08/12/2012) * LAB HISTORICAL RESULTS-ONBASE(Performed 08/12/2012) * LAB HISTORICAL RESULTS-ONBASE(Performed 08/12/2012) * LAB HISTORICAL RESULTS-ONBASE(Performed 08/12/2012) * LAB HISTORICAL RESULTS-ONBASE(Performed 08/12/2012) * TYPE + SCREEN PANEL(Performed 08/07/2012) Performed for Preoperative examination, unspecified * CBC W/O DIFFERENTIAL(Performed 08/07/2012) Performed for Preoperative examination, unspecified * CYTOLOGY CERVICAL/VAG PAP SCREEN THIN PREP(Performed 06/17/2012) * CHLAMYDIA + GC AMPLIFIED PROBE(Performed 06/17/2012) * HCG URINE QUALITATIVE - POINT OF CARE(Performed 09/15/2010) * CYTOLOGY CERVICAL/VAG DIAG THIN PREP(Performed 01/10/2010) * CHLAMYDIA + GC AMPLIFIED PROBE(Performed 01/10/2010) * HCG URINE QUALITATIVE - POINT OF CARE(Performed 01/10/2010) * CULTURE WOUND(Performed 06/28/2009) Performed for Unspecified Symptom Associated With Female Genital Organs * HCG URINE QUALITATIVE - POINT OF CARE(Performed 06/28/2009) * APHERESIS/TRANSFUSION ORDER(Performed 04/27/2009) * IMAGING/RADIOLOGY/XRAY RESULTS ORDER(Performed 04/27/2009) * CULTURE URINE(Performed 04/23/2009) Performed for Fever * CBC W AUTO DIFFERENTIAL(Performed 04/23/2009) Performed for Fever * CBC W AUTO DIFFERENTIAL(Performed 04/21/2009) Performed for Other Curr Cond Preg-Unsp * BLOOD GASES CORD KEVIN(Performed 04/21/2009) * BLOOD GASES CORD ARTERIAL(Performed 04/21/2009) * CBC W AUTO DIFFERENTIAL(Performed 04/20/2009) Performed for Other Curr Cond Preg-Unsp * TYPE SCRN XMATCH RBC X2(Performed 04/20/2009) * TYPE SCRN XMATCH RBC X2(Performed 04/20/2009) * TYPE SCRN XMATCH RBC X2(Performed 04/20/2009) * TRANSFUSE RED BLOOD CELLS(Performed 04/20/2009) * TYPE + SCREEN PANEL(Performed 04/20/2009) * GLUCOSE PROTEIN KETONE URINE - POINT OF CAR(Performed 04/20/2009) * CBC W AUTO DIFFERENTIAL(Performed 04/20/2009) * GLUCOSE PROTEIN KETONE URINE - POINT OF CAR(Performed 04/13/2009) * URINALYSIS OBSTETRICS - POINT OF CARE(Performed 04/11/2009) * LS RATIO AMNIOTIC FLUID(Performed 03/31/2009) Performed for Abn NEC-Antepar (HCC) * LUNG MATURITY(Performed 03/31/2009) Performed for Abn NEC-Antepar (HCC) * GROSS + MICRO EXAM(Performed 03/31/2009) * CYTOLOGY NON-COB SAWYER PANEL(Performed 03/31/2009) * CYTOLOGY NON-COB SAWYER PANEL(Performed 03/31/2009) * GROSS + MICRO EXAM(Performed 03/31/2009) Performed for Abn NEC-Antepar (HCC) * CYTOLOGY NON-COB SAWYER PANEL(Performed 03/31/2009) Performed for Abn NEC-Antepar (HCC) * CYTOLOGY NON-COB SAWYER PANEL(Performed 03/31/2009) Performed for Abn NEC-Antepar (HCC) * LAB MISC TEST(Performed 03/31/2009) Performed for Abn NEC-Antepar (HCC) * AMYLASE FLUID(Performed 03/31/2009) Performed for Abn NEC-Antepar (HCC) * TYPE SCRN XMATCH RBC X1(Performed 03/31/2009) Performed for Abn NEC-Antepar (HCC) * TYPE SCRN XMATCH RBC X2(Performed 03/31/2009) Performed for Abn NEC-Antepar (HCC) * CBC W AUTO DIFFERENTIAL(Performed 03/31/2009) Performed for Abn NEC-Antepar (HCC) * TYPE + SCREEN PANEL(Performed 03/29/2009) Performed for Suprv High-Risk Preg NEC * COMPREHENSIVE METABOLIC PANEL(Performed 03/29/2009) Performed for Suprv High-Risk Preg NEC * CBC W AUTO DIFFERENTIAL(Performed 03/29/2009) Performed for Suprv High-Risk Preg NEC * SONOGRAM - COMPLETE(Performed 04/06/2008) Results * PATHOLOGY TISSUE (09/16/2023 11:37 AM CDT) Case Report Surgical Pathology Report Case: [id number] Authorizing Provider: Arielle Simmons MD Collected: 09/16/2023 11:37 AM Ordering Location: [facility] - Received: 09/17/2023 01:56 PM [employer] Pathologist: Avani Rowland MD Specimens: A) - Cervix, 3:00 Bx 1 B) - Endocervix Curettings, ECC 09/18/2023 12:22 PM CDT [facility] Final Diagnosis Uterus, cervix, 3:00, biopsy (A): - Fragments of benign squamous mucosa and stroma with mild chronic inflammation and reactive changes - Negative for dysplasia or carcinoma Uterus, endocervix, curettage (B): - Fragments of unremarkable endocervical mucosa and a scant fragment of squamous epithelium with reactive changes - Negative for dysplasia or carcinoma 09/18/2023 12:22 PM CDT [facility] Microscopic Description and Comment Microscopic examination substantiates the final diagnosis. 09/18/2023 12:22 PM [facility] Clinical History The patient is a 37-year-old woman with a history of abnormal Pap smears who underwent cervical biopsy and curettage. 09/18/2023 12:22 PM [facility] Gross Description The requisition and specimen(s) are identified with the patient's name, Hilda Greene. Received in formalin, specimen A , are 2 zendejas-white soft tissue fragments measuring 0.3 x 0.2 x 0.1 and 0.7 x 0.3 x 0.1 cm. Submitted in toto in A1. Received in formalin, specimen B are multiple zendejas-white soft tissue fragments intermixed with mucoid material aggregating to 3.0 x 2.0 x 0.1 cm. Submitted in toto in B1. MSL 09/18/2023 12:22 PM [facility] Pathologist Location at [facility] 09/18/2023 12:22 PM [facility] Disclaimer The performance characteristics of all immunohistochemical and indirect immunofluorescence stains (if any) cited in this report were determined by the [facility]. Some of these tests were developed by our own laboratory and have not been cleared or approved by the US Food and Drug Administration. The FDA does not require this test to go through premarket FDA review. These tests are used for clinical purposes. They should not be regarded as investigational or for research. This laboratory is certified under the Clinical Laboratory Improvement Amendments (CLIA) as qualified to perform high complexity clinical laboratory testing. This case has been personally reviewed and interpreted by the attending (teaching) pathologist. 09/18/2023 12:22 PM [facility] Embedded Images 09/18/2023 12:22 PM [facility] Pathology/Cytology CURETTINGS / Unknown 09/16/2023 11:37 AM CDT 09/17/2023 1:56 PM CDT Miscellaneous samples (specimen) CURETTINGS / Unknown 09/16/2023 11:37 AM CDT 09/17/2023 1:56 PM CDT Arielle Simmons MD LAB - PATHOLOGY/C YTOLOGY ORDERABLES [facility] [address] [place] [address], [facility] [phone] * HCG URINE QUALITATIVE - POINT OF CARE (AMB) (09/16/2023 10:54 AM CDT) HCG Qual Urine Negative Negative [facility] [address] QC Verified Yes Yes [facility] [address] Urine URINE / Unknown 09/16/2023 1 0:54 AM CDT Arielle Simmons MD LAB - POINT OF CA RE ORDERABLES Performing Organization Address City/[facility]/ZIP Co de Phone Number [facility] [address] [place] [address], [facility] [phone] * (ABNORMAL) HPV DETECTION HIGH RISK CHLOE (08/27/2023 3:57 PM CDT) High Risk Human Papilloma Result Detected( A) Not detected 09/03/2023 6:07 AM CDT [facility] High Risk Human Papilloma Interp 09/03/2023 6:07 AM CDT [facility] Comment:High Risk Human Yonatan lloma Virus - Detected Pathology/Cytolo gy MISCELLANEOUS SAMPLES / Unknown 08/27/2023 3:57 PM CDT 08/28/2023 11:46 AM CDT Narrative [facility] - 09/03/2023 6:07 AM CDT [...] available data (cytology, histology, and clinical information). Yarelislori Arauz EDUCATION AND TRAINING MANAGER-[facility] - MICROBIOLOGY ORDERABLES Performing Organization Address [facility] Co de Phone Number [facility] [address] [place] [address] * HPV GENOTYPES 16,18/45 (08/27/2023 3:57 PM CDT) Human papillomavirus Genotype 16 by TMA Not detected Not detected 09/03/2023 10:31 AM CDT [facility] Human papillomavirus Genotype 18/45 by TMA Not detected Not detected 09/03/2023 10:31 AM CDT [facility] Pathology/Cytolo gy MISCELLANEOUS SAMPLES / Unknown 08/27/2023 3:57 PM CDT 08/28/2023 11:46 AM CDT [facility] PATH[facility] - 09/03/2023 10:31 AM CDT This test detects E6/E7 viral messenger RNA of high-risk HPV types 16, 18, 31, 33, 35, 39, 45, 51, 52, 56, 58, 59, 66, and 68 associated with cervical cancer and its precursor lesions. Cross-reactivity with low risk HPV genotypes 26, 67, 70, and 82 may occur. Sensitivity may be affected by specimen collection methods, stage of infection, and the presence of interfering substances. Results should be interpreted in conjunction with other available laboratory and clinical data. Yarelis Arauz APRN-[facility] - MICROBIOLOGY ORDERABLES Performing Organization Address [facility] de Phone Number [facility] [address] [place] [address] * C. TRACHOMATIS + N. GONORRHOEAE + TRICH CHLOE (08/27/2023 3:57 PM CDT) Only the most recent of2 resultswithin the time period is included. Chlamydia Trachomatis CHLOE Not detected Not detected 08/29/2023 2:24 PM CDT [facility] Neisseria Gonorrhoeae CHLOE Not detected Not detected 08/29/2023 2:24 PM CDT [facility] Trichomonas Vaginalis CHLOE Not detected Not detected 08/29/2023 2:24 PM CDT [facility] Pathology/Cytolo gy MISCELLANEOUS SAMPLES / Unknown 08/27/2023 3:57 PM CDT 08/28/2023 11:46 AM CDT Narrative [facility] - 08/29/2023 2:24 PM CDT This analysis was performed using Gen-Probe Aptima Combo 2 and Gen-Probe Aptima Assay. These methodologies are U.S. FDA approved for Chlamydia trachomatis, Neisseria gonorrhoeae testing for urine and urogenital swabs from men and women, and cervical cells submitted in ThinPrep vials. Performance characteristics of testing for Trichomonas vaginalis on specimens using the Gen-Probe Aptima Trichomonas vaginalis Assay on the TurboHeads system and rectal and pharyngeal swabs with Gen-Probe Aptima combo 2 were determined by the Molecular Diagnostics Laboratory at [facility]. They have not been cleared or approved by the U.S Food and Drug Administration (FDA). The FDA has determined that such clearance approval is not necessary. This test is used for clinical purposes and should not be regarded as investigational or for research. This laboratory is certified under the Clinical Laboratory Improvements Amendments of 1988 (CLIA 1988), as qualified to perform high complexity laboratory testing. Yarelis DAVIS LAB - MICROBIOLOGY ORDERABLES [facility] [address] [phone] * PAP IMAGE-GUIDED W HPV+CT/NG+TRICH (08/27/2023 3:57 PM CDT) Case Report Gynecologic Cytology Report Case: [id number] Authorizing Provider: Yarelis Arauz APRN-CNP Collected: 08/27/2023 03:57 PM Ordering Location: [facility] - Received: 08/28/2023 11:46 AM FRUIT TRIMMER First Screen: Verito Gill Pathologist: Mauro Rushing MD Specimen: THINPREP - IMAGE GUIDED, Cervix/Endocervix 09/02/2023 12:26 PM CDT [facility] LMP 3-24 09/02/2023 12:26 PM CDT [facility] Menstrual Status None Applicable 12:26 PM CDT [facility] Specimen Adequacy Satisfactory for evaluation, endocervical/trans formation zone component absent. 09/02/2023 12:26 PM CDT [facility] Categorization Epithelial cell abnormality. 09/02/2023 12:26 PM CDT [facility] Interpretation COB SAWYER Atypical squamous cells of undetermined significance (ASC-US). 09/02/2023 12:26 PM CDT [facility] Pap Footnote The Pap Smear is a screening test. False positive and false negative results occur. Negative results do not preclude abnormalities, thus clinical correlation is required. This specimen was evaluated by the [employer] Imaging System along with an additional manual rescreening by a landfill attendant and/or pathologist. 09/02/2023 12:26 PM CDT [facility] Embedded Images 12:26 PM CDT [facility] Pathology/Cytolo gy MISCELLANEOUS SAMPLES / Unknown 08/27/2023 3:57 PM CDT 08/28/2023 11:46 AM CDT Yarelis Arauz APRN-PRESTON LAB - PATHOLOGY/CY TOLOGY ORDERABLES Performing Organization Address City/State/[facility] Co de Phone Number [facility] [address] [phone] * HIV-1 HIV-2 ANTIBODY + HIV P24 AG PANEL (08/27/2023) Only the most recent of7 resultswithin the time period is included. HIV Screen 4th Generation w Reflex NON-REACT [...] purpose. For additional information please refer to http://education.[employer]/faq/DHH647 (This link is being provided for informational/ educational purposes only.) The performance of this assay has not been clinically validated in patients less than 2 years old. Test Performed at: [employer] [address] [facility] [place] [address] RAZA HARDIN MD Blood BLOOD SPECIMEN / Unknown 08/27/2023 08/27/2023 2:57 PM CDT Yarelis Arauz APRN-INSIDE SALES CONSULTANT LAB - CHEMISTRY OR DERABLES Performing Organization Address [facility] Co de Phone Number [employer] [id number] [place] [address] * TREPONEMA PALLIDUM POS REFLX RPR (08/27/2023) Treponema pallidum Antibody EIA NEGATIVE NEGATIVE [facility] Comment: No antibodies to T. pallidum (the agent causing syphilis) were detected in the specimen. This result, however, does not exclude very recent T. pallidum infection; testing of a second specimen, collected 2-4 weeks after this specimen, is recommended if the index of suspicion for recent infection is high. REPORT COMMENT: FASTING:NO Test Performed at: [employer] [facility] [address] [address] [place] Blood BLOOD SPECIMEN / Unknown 08/27/2023 08/27/2023 2:57 PM CDT Yarelis Arauz APRN-INSIDE SALES CONSULTANT LAB - SEROLOGY ORD ERABLES Performing Organization Address [facility] Co de Phone Number [employer] [phone] [place] [address] * IMAGING RADIOLOGY XRAY RESULTS ORDER (01/26/2020 9:27 AM CDT) Only the most recent of7 resultswithin the time period is included. Anatomical Region Laterality Modality Other Narrative 01/26/2020 9:27 AM CDT Ordered by an unspecified provider. Scanned Document IMAGING * LACTIC ACID BLOOD (01/22/2020 9:57 AM CDT) Only the most recent of3 resultswithin the time period is included. Lactic Acid 0.9 0.5 - 2.2 mmol/L 01/22/2020 10:21 AM CDT [facility] Blood BLOOD SPECIMEN / Unknown Lab Venipuncture / Unknown 01/22/2020 9:57 AM CDT 01/22/2020 10:04 AM CDT Carolann Tony MD LAB - CHEMISTRY O RDERABLES Performing Organization Address City/[facility] Co de Phone Number [facility] [address] [place] [address] * CULTURE BLOOD (01/22/2020 3:51 AM CDT) Only the most recent of2 resultswithin the time period is included. Culture No growth day 5 NANCY 01/27/2020 8:00 AM CDT [facility] MICROBIOLOGY Blood PERIPHERAL BLOOD / Unknown Lab Venipuncture / Unknown 01/22/2020 3:51 AM CDT 01/22/2020 4:10 AM CDT Carolann Tony MD LAB - MICROBIOLOG Y ORDERABLES Performing Organization Address [facility] Co de Phone Number [facility] MICROBIOLOGY [address] [place], [place] [id number] [place] [address] * XR CHEST 1VW PORTABLE (01/22/2020 3:45 AM CDT) Anatomical Region Laterality Modality Chest Radiographic Sarita ging 01/22/2020 9:13 AM CDT Impressions 01/22/2020 9:13 AM CDT Unremarkable. *Reading Radiologist: Suresh Pisano on 01/22/2020 at 9:13 AM Narrative 01/22/2020 9:13 AM CDT Chest, 1 view DATE: 01/22/2020 INDICATION: Fever FINDINGS: Allowing for body habitus, the lungs are clear and free of effusion. The heart, mediastinum and bones are unremarkable. Procedure Note Suresh Pisano MD - 01/22/2020 Chest, 1 view DATE: 01/22/2020 INDICATION: Fever FINDINGS: Allowing for body habitus, the lungs are clear and free of effusion. The heart, mediastinum and bones are unremarkable. IMPRESSION Unremarkable. *Reading Radiologist: Suresh Pisano on 01/22/2020 at 9:13 AM Carolann Tony MD DIAGNOSTIC IMAGIN G ORDERABLES * (ABNORMAL) URINALYSIS REFLEX TO MICROSCOPIC NO CULTURE (01/22/2020 2:55 AM CDT) Color UA Yellow Straw, Yellow 01/22/2020 3:12 AM CDT [facility] Clarity UA Clear Clear 01/22/2020 3:12 AM CDT [facility] Glucose UA Negative Negative 01/22/2020 3:12 AM CDT [facility] Bilirubin UA Negative Negative 01/22/2020 3:12 AM CDT [facility] Ketone UA 1+(A) Negative 01/22/2020 3:12 AM CDT [facility] Specific [place] UA 1.027 1.005 - 1.030 01/22/2020 3:12 AM CDT [facility] Blood UA Negative Negative 01/22/2020 3:12 AM CDT [facility] pH UA 6.0 5.0 - 8.0 pH 01/22/2020 3:12 AM CDT [facility] Protein UA 2+(A) Negative 01/22/2020 3:12 AM CDT [facility] Urobilinogen UA Negative Negative mg/dL 01/22/2020 3:12 AM CDT [facility] Nitrite UA Negative Negative 01/22/2020 3:12 AM CDT [facility] Leukocyte UA Negative Negative 01/22/2020 3:12 AM CDT [facility] Urine Microscopy Urine microscopy to follow 01/22/2020 3:12 AM CDT [facility] Urine URINE SPECIMEN OBTAINED BY SINGLE CATHETERIZATION OF URINARY BLADDER / Unknown Collection / Unknown 01/22/2020 2:55 AM CDT 01/22/2020 3:02 AM CDT Narrative [facility] - 01/22/2020 3:12 AM CDT Carolann Tony MD LAB - URINALYSIS ORDERABLES [facility] [address] [place] [address] * URINE MICROSCOPIC ONLY (01/22/2020 2:55 AM CDT) RBC UA 0-2 None Seen, 0-2, 3-5 # /hpf 01/22/2020 3:14 AM CDT [facility] WBC UA 0-5 None Seen, 0-5 # /hpf 01/22/2020 3:14 AM CDT [facility] Bacteria UA None Seen None Seen 01/22/2020 3:14 AM CDT [facility] Squamous Epithelial Cells 0-2 None Seen, 0-2, 3-5 /hpf 01/22/2020 3:14 AM CDT [facility] Mucus UA 1+ /LPF 01/22/2020 3:14 AM CDT [facility] Urine URINE SPECIMEN OBTAINED BY SINGLE CATHETERIZATION OF URINARY BLADDER / Unknown Collection / Unknown 01/22/2020 2:55 AM CDT 01/22/2020 3:02 AM CDT Narrative [facility] - 01/22/2020 3:14 AM CDT Carolann Tony MD LAB - URINALYSIS ORDERABLES Performing Organization Address [facility] de Phone Number [facility] [address] [place] [address] * CULTURE URINE (01/22/2020 2:55 AM CDT) Only the most recent of4 resultswithin the time period is included. Culture Urine No growth (<100 CFU/mL) NANCY 01/23/2020 8:46 AM CDT [facility] MICROBIOLOGY Urine URINE SPECIMEN OBTAINED BY SINGLE CATHETERIZATION OF URINARY BLADDER / Unknown Collection / Unknown 01/22/2020 2:55 AM CDT 01/22/2020 3:04 AM CDT Carolann Tony MD LAB - MICROBIOLOG Y ORDERABLES Performing Organization Address City/[facility]/ZIP Co de Phone Number [facility] MICROBIOLOGY [address] [place] [address], [facility] [phone] * (ABNORMAL) PROTEIN CREATININE RATIO URINE RANDOM PNL (01/22/2020 2:54 AM CDT) [facility] Protein Urine 63.2(H) <11.9 mg/dL 01/22/2020 3:41 AM CDT [facility] Creatinine Urine 142.00 mg/dL 01/22/2020 3:41 AM CDT [facility] Protein/Creatin ine Ratio Urine 0.45 01/22/2020 3:41 AM CDT [facility] Urine URINE SPECIMEN OBTAINED BY CLEAN CATCH PROCEDURE / Unknown Collection / Unknown 01/22/2020 2:54 AM CDT 01/22/2020 3:02 AM CDT Carolann Tony MD LAB - URINE CHEMI STRY ORDERABLES Performing Organization Address City/State/[facility] Co de Phone Number [facility] [address] [place] [address] * (ABNORMAL) CBC W AUTO DIFFERENTIAL (01/22/2020 2:40 AM CDT) Only the most recent of11 resultswithin the time period is included. [facility] WBC 7.7 4.4 - 10.7 x10E9/L 01/22/2020 2:59 AM CDT [facility] WBC Corrected 01/22/2020 2:59 AM CDT [facility] RBC 3.28(L) 3.80 - 5.20 x10E12/L 01/22/2020 2:59 AM CDT [facility] Hemoglobin 7.5(L) 12.0 - 15.6 gm/dL 01/22/2020 2:59 AM CDT [facility] Hematocrit 23.7(L) 35.9 - 45.5 % 01/22/2020 2:59 AM CDT [facility] MCV 72.3(L) 80.7 - 98.3 fl 01/22/2020 2:59 AM CDT [facility] MCH 22.9(L) 26.7 - 34.0 pg 01/22/2020 2:59 AM CDT [facility] MCHC 31.6 30.8 - 35.9 gm/dL 01/22/2020 2:59 AM CDT [facility] Platelet Count 243 153 - 416 x10E9/L 01/22/2020 2:59 AM CDT [facility] RDW-CV 15.3(H) 12.1 - 14.9 % 01/22/2020 2:59 AM [facility] MPV 11.6 9.4 - 12.9 fl 01/22/2020 2:59 AM [facility] Neutrophils % 70.3 44.0 - 73.0 % 01/22/2020 2:59 AM [facility] Lymphocytes % 17.4(L) 20.0 - 43.0 % 01/22/2020 2:59 AM [facility] Monocytes % 10.2 5.0 - 13.0 % 01/22/2020 2:59 AM [facility] Eosinophils % 0.8 0.0 - 6.0 % 01/22/2020 2:59 AM [facility] Basophils % 0.3 0.0 - 2.0 % 01/22/2020 2:59 AM [facility] Immature Granulocytes 1.0 0 - 1 % 01/22/2020 2:59 AM [facility] Neutrophil Absolute 5.39 2.01 - 7.14 x10E9/L 01/22/2020 2:59 AM [facility] Lymphocytes Absolute 1.33 1.07 - 3.94 x10E9/L 01/22/2020 2:59 AM T [facility] Monocytes Absolute 0.78 0.26 - 1.07 x10E9/L 01/22/2020 2:59 AM [facility] Eosinophils Absolute 0.06 0 - 0.47 x10E9/L 01/22/2020 2:59 AM [facility] Basophils Absolute 0.02 0 - 0.08 x10E9/L 01/22/2020 2:59 AM [facility] Immature Granulocytes Absolute 0.08(H) 0.00 - 0.06 x10E9/L 01/22/2020 2:59 AM [facility] nRBC Auto 0 /100 WBC 01/22/2020 2:59 AM [facility] Blood BLOOD SPECIMEN / Unknown Venipuncture / Unknown 01/22/2020 2:40 AM CDT 01/22/2020 2:42 AM CDT Carolann Tony MD LAB - HEMATOLOGY ORDERABLES [facility] [address] [place] [address] * (ABNORMAL) COMPREHENSIVE METABOLIC PANEL (01/22/2020 2:40 AM CDT) Only the most recent of3 resultswithin the time period is included. Glucose 71 70 - 105 mg/dL 01/22/2020 3:43 AM CDT [facility] Sodium 138 136 - 145 mmol/L 01/22/2020 3:43 AM CDT [facility] Potassium 3.2(L) 3.5 - 5.1 mmol/L 01/22/2020 3:43 AM CDT [facility] Chloride 107 98 - 107 mmol/L 01/22/2020 3:43 AM CDT [facility] CO2 18(L) 23 - 31 mmol/L 01/22/2020 3:43 AM CDT [facility] Calcium 8.4 8.4 - 10.4 mg/dL 01/22/2020 3:43 AM CDT [facility] Anion Gap 13 8 - 16 mmol/L 01/22/2020 3:43 AM CDT [facility] BUN 14 7 - 18.7 mg/dL 01/22/2020 3:43 AM CDT [facility] Creatinine 0.70 0.57 - 1.11 mg/dL 01/22/2020 3:43 AM CDT [facility] Alkaline Phosphatase 87 40 - 150 U/L 01/22/2020 3:43 AM CDT [facility] ALT 23 0 - 61 U/L 01/22/2020 3:43 AM CDT [facility] AST 38(H) 5 - 34 U/L 01/22/2020 3:43 AM CDT [facility] Protein Total 6.6 6.4 - 8.3 gm/dL 01/22/2020 3:43 AM CDT [facility] Albumin 3.0(L) 3.5 - 5.2 gm/dL 01/22/2020 3:43 AM CDT [facility] Bilirubin Total 0.6 0.2 - 1.0 mg/dL 01/22/2020 3:43 AM CDT [facility] eGFR by MDRD >60 >60 mL/min/1.7 3m2 01/22/2020 3:43 AM CDT [facility] eGFR by MDRD >60 >60 mL/min/1.7 3m2 01/22/2020 3:43 AM CDT [facility] Blood BLOOD SPECIMEN / Unknown Venipuncture / Unknown 01/22/2020 2:40 AM CDT 01/22/2020 3:02 AM CDT Carolann Tony MD LAB - CHEMISTRY O RENETTA Performing Organization Address [facility] Co de Phone Number [facility] [address] [place] [address] * (ABNORMAL) LDH BLOOD (01/22/2020 2:40 AM CDT) LDH 267(H) 125 - 220 U/L 01/22/2020 3:43 AM CDT [facility] Blood BLOOD SPECIMEN / Unknown Venipuncture / Unknown 01/22/2020 2:40 AM CDT 01/22/2020 3:02 AM CDT Carolann Tony MD LAB - CHEMISTRY O RENETTA Performing Organization Address [facility] de Phone Number [facility] [address] [place] [address] * (ABNORMAL) BLOOD GASES CORD KEVIN (01/17/2020 11:24 AM CDT) Only the most recent of2 resultswithin the time period is included. pH Cord Venous 7.33 7.28 - 7.40 pH 01/17/2020 11:29 AM CDT [facility] pCO2 Cord Venous 46(H) 35 - 45 mm hg 01/17/2020 11:29 AM CDT [facility] pO2 Cord Venous 36(H) 22 - 33 mm hg 01/17/2020 11:29 AM CDT [facility] HCO3 Cord Venous 24 22 - 24 mmol/L 01/17/2020 11:29 AM CDT [facility] BE Cord Venous -2.0 mmol/L 01/17/2020 11:29 AM CDT [facility] O2 Saturation Cord Venous 78 % 01/17/2020 11:29 AM CDT [facility] Mode Unknown 01/17/2020 11:29 AM CDT [facility] Scott's Test N/A 01/17/2020 11:29 AM CDT [facility] Sample Site [facility] 01/17/2020 11:29 AM CDT [facility] Sample Type Venous 01/17/2020 11:29 AM CDT [facility] Line Crew Supervisor ID [id number] 01/17/2020 11:29 AM CDT [facility] Blood CORD BLOOD SPECIMEN / Unknown 01/17/2020 11:24 AM CDT 01/17/2020 11:24 AM CDT Lavinia Hunt MD LAB - BLOOD GASES OR DERABLES [facility] [address] [place] [address] * (ABNORMAL) BLOOD GASES CORD ARTERIAL (01/17/2020 11:24 AM CDT) Only the most recent of2 resultswithin the time period is included. pH Cord Arterial 7.22 7.20 - 7.34 pH 01/17/2020 11:32 AM CDT [facility] Comment:L pCO2 Cord Arterial 61(H) 45 - 55 mm hg 01/17/2020 11:32 AM CDT [facility] Comment:H pO2 Cord Arterial 11(L) 12 - 25 mm hg 01/17/2020 11:32 AM CDT [facility] Comment:L HCO3 Cord Arterial 24.4(H) 22.0 - 24.0 mmol/L 01/17/2020 11:32 AM CDT [facility] BE Cord Arterial -4.3 mmol/L 01/17/20 20 11:32 AM CDT [facility] Comment:L O2 Saturation Cord Arterial 01/17/2020 11:32 AM CDT [facility] Comment:< Mode Unknown 01/17/2020 11:32 AM CDT [facility] Test N/A 01/17/2020 11:32 AM CDT [facility] Sample Site [facility] 01/17/2020 11:32 AM CDT [facility] Sample Type Arterial 01/17/2020 11:32 AM CDT [facility] RESP THERAP[facility] Line Crew Supervisor ID [id number] 01/17/2020 11:32 AM CDT [facility] Notified Who savanna perez 01/17/2020 11:32 AM CDT [facility] Notification Time 01/17/2020 11:31 01/17/2020 11:32 AM CDT [facility] Notified By rob engle 01/17/2020 11:32 AM CDT [facility] Blood, arterial CORD BLOOD SPECIMEN / Unknown 01/17/2020 11:24 AM CDT 01/17/2020 11:24 AM CDT Lavinia Hunt MD LAB - BLOOD GASES OR DERABLES Performing Organization Address City/State/[facility] Co de Phone Number [facility] [address] [place] [address] * Neuraxial Block (01/17/2020 10:34 AM CDT) Narrative Keara Stack APRN-CRNA - 01/17/2020 10:34 AM CDT Keara Stack APRN-CRNA 01/17/2020 10:51 AM Neuraxial Block Note Pre-Procedure: Procedure Name: Neuraxial Block Patient Location: OB Indications: surgical anesthesia Pre-Anesthetic Checklist: Patient identified, IV Checked, Risks and benefits discussed, Surgical consent verified, Monitors and equipment, Site examined, Pre-op evaluation done, Time-out performed, Informed consent obtained, Questions answered/anesthesia questions answered and Allergies reviewed Anticoagulation/ Anti-thrombosis status confirmed? Yes Supplemental O2: nasal cannula Monitors: BP, continuous pluse ox, EKG and End tidal CO2 Patient Condition: awake Patient Sedated? No Procedure: Block Type: Spinal Prep: Betadine Sterile Field: mask, cap/hat, sterile established and sterile gloves Approach: midline Skin was localized? Yes Skin localized with: lidocaine (XYLOCAINE MPF) 1 % injection, 10 mL Spinal Block: Needle Type: pencil-point Needle Gauge: 24 Needle Length: 102 mm Placement Site: L3-4 Number of Attempts: 1 CSF: free flow, aspiration before injection, aspiration during injection, aspiration after injection Local anesthetics used? Yes Spinal local anesthetics/Additives: morphine PF (DURAMORPH) 0.5 mg/ml injection, 0.1 mg EPINEPHrine (VIAL/AMPULE) 1 MG/ML injection, 0.15 mg bupivacaine 0.75 % in dextrose (SENSORCAINE) injection, 15 mg Degree of difficulty: none Procedure Tolerance: tolerated well Sensory Level: T4 Motor Blockade: Yes Position post procedure: left uterine displacement Vital Signs: Vital sings monitored and stable throughout. See anesthesia record for details., Vital signs moniitored and stable throughout. See nursing vitals flowsheet for details., heart tones monitored and stable throughout. Staff: Anesthesia Provider: Keara Stack APRN-CRNA - performed the procedure Keara Stack APRN-[facility]ESIA ORDERABLES * PREPARE (CROSSMATCH) RBC UNIT(S), 2 Units (01/17/2020 8:53 AM CDT) Unit Description AS1 LR PRBC [facility] Unit ABO B [facility] Unit Rh POS [facility] Product Number R02 [facility] Unit Donor # [id number] [facility] Unit Status released [facility] OD BANK LAB Product [facility] [id number] [facility] BL [facility]OD [facility] Blood Type Barcode 7300 [facility] Expiration Date [facility] Unit Description AS1 LR PRBC [facility] Unit ABO B [facility] Unit Rh POS [facility] Product Number R02 [facility] Unit Donor # [id number] [facility] Unit Status released [facility] Product Code [id number] [facility] Blood Type Barcode 7300 [facility] Expiration Date [facility] Blood Bank BLOOD SPECIMEN / Unknown 01/17/2020 8:53 AM CDT 01/17/2020 8:58 AM CDT Maxx Hernandez MD LAB - BLOOD BANK ORD ERABLES [facility] [address] [place], [place] [id number] [place] [address] * BLOOD TYPE VERIFICATION (01/17/2020 8:53 AM CDT) Pathologist [facility] ABO Rh B POS 01/17/2020 9:4 9 AM CDT [facility] Blood Bank BLOOD SPECIMEN / Unknown Lab Venipuncture / Unknown 01/17/2020 8:53 AM CDT 01/17/2020 9:13 AM CDT Margie Mock MD LAB - BLOOD BANK ORD ERABLES Performing Organization Address City/[facility]/ZIP Co de Phone Number [facility] B[facility] [address] [place] [address] * TYPE + SCREEN PANEL (01/17/2020 8:53 AM CDT) Only the most recent of4 resultswithin the time period is included. ABO Rh B POS 01/17/2020 9:49 AM CDT [facility] Comment:History checked. Antibody Screen NEG 0 9:49 AM CDT [facility] B[facility] Blood Bank BLOOD SPECIMEN / Unknown Venipuncture / Unknown 01/17/2020 8:53 AM CDT 01/17/2020 8:58 AM CDT Ligia Santana MD LAB - BLOOD BANK ORD ERABLES Performing Organization Address City/[facility] Co de Phone Number [facility] [address] [place] [address] * URINALYSIS - POINT OF CARE (AMB) [facility] (01/13/2020) Only the most recent of8 resultswithin the time period is included. Specific [place] UA 1.015 pH UA 6 WBC UA n Nitrite UA n Protein UA n Glucose UA n Ketones UA POCT n Urobilinogen UA n Bilirubin UA POCT n Blood Urine POCT n Urine URINE / Unknown 01/13/2020 Samantha Landon EDUCATION AND TRAINING MANAGER-[facility] LAB - POIN T OF CARE ORDERABLES * NONSTRESS TEST (12/29/2019 4:44 AM CDT) Narrative Brennen Young MD - 12/29/2019 4:44 AM CDT Brennen Young MD 01/07/2020 12:14 PM Name: Vashana J Jc Date of : 1985 Today's Date: 12/29/2019 36w2d NST RESULTS ([facility]) OBJECTIVE FINDINGS Temp: 97.4 F (36.3 C), , , BP: 126/77 NST Indication(s): Other (Comment)(weu visit) Uterine Irritability: Yes Contractions: Not present OBJECTIVE FINDINGS Movement: Present Monitoring Mode: External Baseline: 130 BPM Variability: Moderate Decelerations: None Accelerations: Yes OTHER INFORMATION Eneida Avendano RN PGY-1 Addendum NST: baseline 140 bpm, moderate variability, reactive, 2 variable decelerations present, overall reassuring [place]: rare contractions, irritability Carolann Bray MD 12/30/2019 8:56 PM Attending Note NST performed Fhts 130s reactive Tocos irreg Indication abd pain in Time greater than 20 min I have reviewed the NST strip and the data in this note. My interpretation is reactive Brennen Young MD 01/07/2020 12:13 PM Carolann Bray MD OB [facility] ORDERABLES * (ABNORMAL) URINE MICROSCOPIC ONLY REFLEX TO CULTURE (12/29/2019 3:46 AM CDT) Reflex Status Culture to follow 12/29/2019 4:17 AM CDT [facility] RBC UA 3-5 None Seen, 0-2, 3-5 # /hpf 12/29/2019 4:17 AM CDT [facility] WBC UA 11-20(A) None Seen, 0-5 # /hpf 12/29/2019 4:17 AM CDT [facility] Bacteria UA None Seen None Seen 12/29/2019 4:17 AM CDT [facility] Squamous Epithelial Cells >20(A) None Seen, 0-2, 3-5 /hpf 12/29/2019 4:17 AM CDT [facility] Mucus UA 2+ /LPF 12/29/2019 4:17 AM CDT [facility] Hyaline Casts 0-2 None Seen, 0-2 # /lpf 12/29/2019 4:17 AM CDT [facility] Urine URINE SPECIMEN OBTAINED BY CLEAN CATCH PROCEDURE / Unknown Collection / Unknown 12/29/2019 3:46 AM CDT 12/29/2019 3:58 AM CDT Narrative [facility] - 12/29/2019 4:17 AM CDT Carolann Bray MD LAB - URINALYSIS OR DERABLES [facility] [address] [place] [address] * CHLAMYDIA + GC AMPLIFIED PROBE (STL) (12/29/2019 3:46 AM CDT) Chlamydia Amplified Probe Negative Negative 12/30/2019 8:48 AM CDT [facility] GC Amplified Probe Negative Negative 12/30/2019 8:48 AM CDT [facility]CRO[facility]Y Microbiology PART OF UTERINE CERVIX / Unknown Collection / Unknown 12/29/2019 3:46 AM CDT 12/29/2019 3:58 AM CDT Narrative [facility]CRO[facility] - 12/30/2019 8:48 AM CDT Results based on detection/no detection of ribosomal RNA by amplified method. Carolann Bray MD LAB - MICROBIOLOGY ORDERABLES Performing Organization Address [facility] Co de Phone Number [facility] MICROBIOLOGY [address] [place] [address], [facility] [phone] * (ABNORMAL) URINALYSIS REFLEX MICROSCOPIC REFLEX CULTURE (12/29/2019 3:46 AM CDT) Only the most recent of2 resultswithin the time period is included. Color UA Yellow Straw, Yellow 12/29/2019 4:14 AM CDT [facility] Clarity UA Cloudy(A) Clear 12/29/2019 4:14 AM CDT [facility] Glucose UA Negative Negative 12/29/2019 4:14 AM CDT [facility] Bilirubin UA Negative Negative 12/29/2019 4:14 AM CDT [facility] Ketone UA Negative Negative 12/29/2019 4:14 AM CDT [facility] Specific [place] UA 1.018 1.005 - 1.030 12/29/2019 4:14 AM CDT [facility] Blood UA Negative Negative 12/29/2019 4:14 AM CDT [facility] pH UA 6.0 5.0 - 8.0 pH 12/29/2019 4:14 AM CDT [facility] Protein UA 1+(A) Negative 12/29/2019 4:14 AM CDT [facility] Urobilinogen UA 2.0(A) Negative mg/dL 12/29/2019 4:14 AM CDT [facility] Nitrite UA Negative Negative 12/29/2019 4:14 AM CDT [facility] Leukocyte UA Trace(A) Negative 12/29/2019 4:14 AM CDT [facility] Urine Microscopy Urine microscopy to follow 12/29/2019 4:14 AM CDT [facility] Reflex Status Culture to follow 12/29/2019 4:14 AM CDT [facility] Urine URINE SPECIMEN OBTAINED BY CLEAN CATCH PROCEDURE / Unknown Collection / Unknown 12/29/2019 3:46 AM CDT 12/29/2019 3:58 AM CDT Narrative [facility] - 12/29/2019 4:14 AM CDT Carolann Bray MD LAB - URINALYSIS OR DERABLES Performing Organization Address City/[facility]/ZIP Co de Phone Number [facility] [address] [place], [place] [id number] * TRICHOMONAS RAPID TEST (12/29/2019 3:46 AM CDT) Only the most recent of3 resultswithin the time period is included. Trichomonas Rapid Test Negative Negative 12/29/2019 4:22 AM CDT [facility] Microbiology VAGINAL SWAB / Unknown Collection / Unknown 12/29/2019 3:46 AM CDT 12/29/2019 3:58 AM CDT Carolann Bray MD LAB - MICROBIOLOGY ORDERABLES Performing Organization Address [facility]/ZIP Co de Phone Number [facility] [address] [place] [address] * CULTURE STREP B (12/22/2019 12:13 PM CDT) Culture [facility] Comment: STREPTOCOCCUS, GROUP B CULTURE Micro Number: [id number] Test Status: Final Specimen Source: VAGINAL/ANORECTAL Specimen Quality: Adequate Result: No group B Streptococcus isolated Note per CDC guidelines optimal recovery is achieved by swabbing both the lower vagina and rectum (through the anal sphincter). Test Performed at: [facility] [address] [place] [address] JUNIOR FISHER DO,MPH Microbiology MISCELLANEOUS SAMPLES / Unknown 12/22/2019 12:13 PM CDT 12/22/2019 1:11 PM CDT Sanjay Kimbrough MD LAB - MICROBIOLOGY O RDERABLES Performing Organization Address [facility] Co de Phone Number [facility] [address] [place] [address] * [place] SONO FU OR REPEAT (12/22/2019 11:44 AM CDT) Narrative Darcy Guardado - 12/22/2019 11:44 AM CDT Darcy Guardado 12/22/2019 11:44 AM Documentation in digisonics Sanjay Kimbrough MD PROCEDURE/MINOR SURG ICAL ORDERABLES * NH DOPPLER VELOCIMETRY ; UMBILICAL ARTERY, [place] SONO FU OR REPEAT (11/22/2019 11:55 AMCDT) Narrative Yana, May - 11/22/2019 11:55 AM CDT Yana 11/22/2019 11:56 AM Documentation in Digisonics. Sanjay Kimbrough MD PROCEDURE/MINOR SURG ICAL ORDERABLES * RPR W REFLEX TO TITER+CONFIRM (10/21/2019 11:10 AM CDT) RPR NON-REACTI VE NON-REACT [facility] Comment: REPORT COMMENT: FASTING:NO Test Performed at: [place] [address] JUNIOR FISHER DO,MPH Blood BLOOD SPECIMEN / Unknown 10/21/2019 11:10 AM CDT 10/21/2019 11:11 AM CDT Samantha Landon EDUCATION AND TRAINING MANAGER-CNM LAB - CHEM ISTRY ORDERABLES Performing Organization Address [facility] Co de Phone Number [facility] [address] [place] [address] * GTT 1 HR (50G) GESTATIONAL SCREEN (10/21/2019 11:10 AM CDT) Pathologist [facility] Glucose Gestational Screen 89 <140 mg/dL [facility] Comment: Test Performed at: [employer] [facility] [id number] [facility] [place] [id number] JUNIOR FISHER DO,MPH Blood BLOOD SPECIMEN / Unknown 10/21/2019 11:10 AM CDT 10/21/2019 11:11 AM CDT Samantha Landon EDUCATION AND TRAINING MANAGER-CNM LAB - CHEM ISTRY ORDERABLES [facility] [address] [place] [address] * (ABNORMAL) PROFILE I W/ HBSAG (06/23/2019 10:39 AM WAGON DRILLER) [facility] White Blood Cell Count 8.7 3.8 - 10.8 Thousand /uL [facility] RBC 4.50 3.80 - 5.10 Million/ uL [facility] Hemoglobin 10.1(L) 11.7 - 15.5 g/dL [facility] Hematocrit 33.1(L) 35.0 - 45.0 % [facility] MCV 73.6(L) 80.0 - 100.0 fL [facility] MCH 22.4(L) 27.0 - 33.0 pg [facility] MCHC 30.5(L) 32.0 - 36.0 g/dL [facility] RDW 14.9 11.0 - 15.0 % [facility] Platelet Count 292 140 - 400 Thousand /uL [facility] MPV 12.0 7.5 - 12.5 fL [facility] Neutrophil Absolute 5777 1500 - 7800 cells/uL [facility] Lymphocytes Absolute 2140 850 - 3900 cells/uL [facility] Absolute Monocytes 731 200 - 950 cells/uL [facility] Eosinophils Absolute 26 15 - 500 cells/uL [facility] Basophils Absolute 26 0 - 200 cells/uL [facility] Granulocytes % 66.4 % [facility] Lymphocytes % 24.6 % [facility] Monocytes % 8.4 % [facility] Eosinophils % 0.3 % [facility] Basophils % 0.3 % [facility] Antibody Screen NO ANTIBODIES DETECTED [facility] Comment: Reference range No antibodies detected This assay is a screening test for the detection of red blood cell antibodies. The test is not to be used for pretransfusion screening or for the medical management of an alloimmunized . ABO B [facility] Rh Type RH(D) POSITIVE [facility] Comment: For additional information, please refer to http://education.[employer]/faq/AVG250 (This link is being provided for informational/ educational purposes only.) RPR NON-REACTIVE NON-REAC TIVE [facility] Hepatitis B Virus Surface Antigen NON-REACTIVE NON-REAC TIVE [facility] Confirmation [facility] Rubella Antibody 3.15 index [facility] Comment: Index Interpretation ----- <0.90 Not consistent with Immunity 0.90-0.99 Equivocal > or = 1.00 Consistent with Immunity The presence of rubella IgG antibody suggests immunization or past or current infection with rubella virus. Test Performed at: [facility] [id number] [id number] JUNIOR FISHER DO,MPH Blood BLOOD SPECIMEN / Unknown 06/23/2019 10:39 AM WAGON DRILLER 06/23/2019 10:39 AM WAGON DRILLER Samantha Landon APRNAdenovir PharmaERIC LAB - CHEM ISTRY ORDERABLES Performing Organization Address [facility] [place] [address] * HEMOGLOBIN SOLUBILITY REFLX FRAC (06/23/2019 10:39 AM WAGON DRILLER) Sickle Cell NEGATIVE NEGATIVE [facility] Comment: Hemoglobin solubility testing alone is insufficient for detecting or confirming the presence of sickling hemoglobins in some situations. Additional testing may be required for diagnosis of hemoglobinopathies. For more information on this test go to: http://education.[employer]/faq/SOH59k4 REPORT COMMENT: FASTING:NO Test Performed at: [facility] [id number] [id number] JUNIOR FISHER DO,MPH Blood BLOOD SPECIMEN / Unknown 06/23/2019 10:39 AM WAGON DRILLER 06/23/2019 10:39 AM WAGON DRILLER Samantha Landon APRN-CNM LAB - CHEM ISTRY ORDERABLES Performing Organization Address [facility] [place] [address] * [place] ULTRASOUND, UTERUS (06/23/2019 9:26 AM WAGON DRILLER) Narrative Darcy Guardado - 06/23/2019 9:26 AM WAGON DRILLER Darcy Guardado 06/23/2019 9:26 AM Documentation in [facility] Samantha Landon EDUCATION AND TRAINING MANAGER-CNM PROCEDURE/ MINOR SURGICAL ORDERABLES * (ABNORMAL) PAP LB HPV HR DNA (02/10/2019 12:25 PM CDT) Only the most recent of2 resultswithin the time period is included. Diagnosis Comment(A) 02/16/2019 5:07 PM CDT [facility] ([facility]) Comment: EPITHELIAL CELL ABNORMALITY. ATYPICAL SQUAMOUS CELLS, CANNOT EXCLUDE HIGH-GRADE SQUAMOUS INTRAEPITHELIAL LESION (ASC-H). Recommendation Comment(A) 02/16/2019 5:07 PM CDT [facility] ([facility]) Comment:Suggest colposcopy a nd biopsy if indicated. Specimen Adequacy Comment 019 5:07 PM CDT [facility] ([facility]) Comment: Satisfactory for evaluation. Endocervical and/or squamous metaplastic cells (endocervical component) are present. Performed by Comment 02/16/2019 5:07 PM CDT [facility] ([facility]) Comment:Gabriela Richey, Cyto technologist ([facility]) QC Reviewed by Comment 02/16/2019 5:07 PM CDT [facility] ([facility]) Comment:Laura Kramer Cy totechnologist ([facility]) Electronically Signed by Comment 02/16/2019 5:07 PM CDT [facility] ([facility]) Comment:Jessie Fiore MD, Pathologist Comment . 02/16/2019 5:07 PM CDT [facility] ([facility]) Pathologist Provided ICD10 Comment 02/16/2019 5:07 PM CDT [facility] ([facility]) Comment:R87.611 Note Comment 02/16/2019 5:07 PM CDT [facility] ([facility]) Comment: The Pap smear is a screening test designed to aid in the detection of premalignant and malignant conditions of the uterine cervix. It is not a diagnostic procedure and should not be used as the sole means of detecting cervical cancer. Both false-positive and false-negative reports do occur. Human papillomavirus High Risk Positive(A ) Negative 02/16/2019 5:07 PM CDT [facility] ([facility]) Comment: This high-risk HPV test detects thirteen high-risk types (16/18/31/33/35/39/45/51/52/56/58/59/68) without differentiation. Pathology/Cytolo gy PART OF UTERINE CERVIX / Unknown Collection / Unknown 02/10/2019 12:25 PM CDT 02/10/2019 12:48 PM CDT [facility]ative [facility]) - 02/16/2019 5:07 PM CDT Performed at: 01 - [address] [id number] Tailer Off: Jessie Fiore MD, Phone: [phone] Performed at: - [address] [id number] Tailer Off: Jessie Fiore MD, Phone: [phone] Specimen Comment: Source.............Endocervix Specimen Comment: No. of containers..01 ThinPrep Vial Louise Gardner MD LAB - PATHOLOGY/C YTOLOGY ORDERABLES [facility] ([facility]) [address] [place] [address] * CHLAMYDIA + GC AMPLIFIED PROBE (02/10/2019 12:25 PM CDT) Only the most recent of6 resultswithin the time period is included. Chlamydia Amplified Probe Negative Negative 02/11/2019 10:52 AM CDT [facility] GC Amplified Probe Negative Negative 02/11/2019 10:52 AM CDT [facility] Other ENTIRE ENDOCERVIX / Unknown Collection / Unknown 02/10/2019 12:25 PM CDT 02/10/2019 12:47 PM CDT Narrative [facility] - 02/11/2019 10:52 AM CDT Results based on detection/no detection of ribosomal RNA by amplified method. Louise Gardner MD LAB - MICROBIOLOG Y ORDERABLES [facility] [address] [place] [address], [facility] [phone] * SYPHILIS ANTIBODY CASCADING REFLEX (02/10/2019 12:24 PM CDT) Treponema pallidum Antibody Non Reactive Non Reactive 02/10/2019 4:20 PM CDT [facility] Comment: No Laboratory evidence of syphilis infection. Note: Circulating antibodies may be low or undetectable in early infection. If recent exposure is suspected, re-draw sample in 2-4 weeks and repeat testing. Blood BLOOD SPECIMEN / Unknown Venipuncture / Unknown 02/10/2019 12:24 PM CDT 02/10/2019 3:46 PM CDT Louise Gardner MD LAB - SEROLOGY OR DERABLES Performing Organization Address [facility] Co de Phone Number [facility] [address] [place], [place] [phone] * HEPATITIS B SURFACE ANTIGEN W RFLX CONFIRMATION (02/10/2019 12:24 PM CDT) Only the most recent of2 resultswithin the time period is included. Pathologist [facility] HBsAg Non Reactive Non Reactive 02/10/2019 1:40 PM CDT [facility] Blood BLOOD SPECIMEN / Unknown Venipuncture / Unknown 02/10/2019 12:24 PM CDT 02/10/2019 12:48 PM CDT Louise Gardner MD LAB - CHEMISTRY O RDERABLES Performing Organization Address City/[facility] de Phone Number [facility] [address] [place] [address] * HEPATITIS C ANTIBODY (02/10/2019 12:24 PM CDT) Only the most recent of2 resultswithin the time period is included. Pathologist [facility] HCV Antibody Screen Non Reactive Non Reactive 02/10/2019 1:41 PM CDT [facility] HCV S/C Ratio 0.07 0.00 - 0.79 02/10/2019 1:41 PM CDT [facility] Comment: Jvfupl-yp-jzkocv ratio (S/CO) <0.80: Non Reactive Blood BLOOD SPECIMEN / Unknown Venipuncture / Unknown 02/10/2019 12:24 PM CDT 02/10/2019 12:47 PM CDT Narrative [facility] - 02/10/2019 1:41 PM CDT Non Reactive - Antibodies to Hepatitis C virus (HCV) were not detected, result does not exclude early acute HCV infection. Louise Gardner MD LAB - CHEMISTRY O RDERABLES Performing Organization Address [facility] Co de Phone Number [facility] [address] [place] [address] * HCG URINE QUALITATIVE - POINT OF CARE (02/10/2019 11:20 AM CDT) Only the most recent of7 resultswithin the time period is included. Pathologist [facility] HCG Qual Urine Negative Negative [facility] POCT TESTING QC Verified Yes Yes [facility] POC T TESTING Urine URINE / Unknown 02/10/2019 1 1:20 AM CDT Louise Gardner MD LAB - POINT OF CA RE ORDERABLES Performing Organization Address [facility] de Phone Number [facility] POCT TESTING [address] [place] [address] * RPR (12/31/2017 9:23 AM CDT) Only the most recent of3 resultswithin the time period is included. Pathologist [facility] RPR Non Reactive Non Reactive 01/01/2018 8:52 AM CDT [facility] Blood BLOOD SPECIMEN / Unknown Venipuncture / Unknown 12/31/2017 9:23 AM CDT 12/31/2017 9:39 AM CDT Ernesto Gaona MD LAB - CHEMISTRY ONESIMO HANSON Performing Organization Address [facility] Co de Phone Number [facility] [address] [place] [address] * HEMOGLOBIN A1C (12/31/2017 9:23 AM CDT) Pathologist [facility] Hemoglobin A1c 4.3 4.2 - 6.3 % 12/31/2017 10:57 AM CDT [facility] Estimated Average Glucose 77 mg/dL 12/31/2017 10:57 AM CDT [facility] Whole Blood BLOOD SPECIMEN / Unknown Venipuncture / Unknown 12/31/2017 9:23 AM CDT 12/31/2017 9:39 AM CDT Ernesto Gaona MD LAB - CHEMISTRY ONESIMO HANSON Performing Organization Address City/[facility]/ZIP Co de Phone Number [facility] [address] [place] [phone] * TSH (12/31/2017 9:23 AM CDT) TSH 2.24 0.358 - 3.740 uIU/mL 12/31/2017 10:22 AM CDT [facility] Blood BLOOD SPECIMEN / Unknown Venipuncture / Unknown 12/31/2017 9:23 AM CDT 12/31/2017 9:39 AM CDT Ernesto Gaona MD LAB - CHEMISTRY ONESIMO HANSON Performing Organization Address City/[facility]/ZIP Co de Phone Number [facility] [address] [place] [phone] * LIPID PROFILE (12/31/2017 9:23 AM CDT) Cholesterol 151 <200 mg/dL 12/31/2017 10:22 AM CDT [facility] Triglycerides 57 <150 mg/dL 12/31/2017 10:22 AM CDT [facility] HDL Cholesterol 66 >40 mg/dL 8 10:22 AM CDT [facility] LDL Calculated 74 <130 mg/dL 12/31/2017 10:22 AM CDT [facility] VLDL Calculated 11 <=30 mg/dL 8 10:22 AM CDT [facility] Chol HDL Ratio 2.3 <4.5 12/31/2017 10:22 AM CDT [facility] LDL/HDL Ratio 1.1 <5.0 12/31/2017 10:22 AM CDT [facility] Blood BLOOD SPECIMEN / Unknown Venipuncture / Unknown 12/31/2017 9:23 AM CDT 12/31/2017 9:39 AM CDT Ernesto Gaona MD LAB - CHEMISTRY ONESIMO HANSON [facility] Organization Address City/State/ZIP Co de Phone Number [facility] [address] [place] [address] * (ABNORMAL) PAP LB RFLX HPV ASCU (12/31/2017 9:22 AM CDT) Diagnosis Comment(A) 01/06/2018 6:10 PM CDT [facility] ([facility]) Comment: EPITHELIAL CELL ABNORMALITY. ATYPICAL SQUAMOUS CELLS OF UNDETERMINED SIGNIFICANCE. Recommendation Comment(A) 01/06/2018 6:10 PM CDT [facility] ([facility]) Comment:Suggest follow up as clinically appropriate. Specimen Adequacy Comment 018 6:10 PM CDT [facility] ([facility]) Comment: Satisfactory for evaluation. Endocervical and/or squamous metaplastic cells (endocervical component) are present. Performed by Comment 01/06/2018 6:10 PM CDT [facility] ([facility]) Comment:Micha Menezes totechnologist Electronically Signed by Comment 01/06/2018 6:10 PM CDT [facility] ([facility]) Comment:Lonny Mata MD, Pa thologist Comment . 01/06/2018 6:10 PM CDT [facility] ([facility]) Pathologist Provided ICD10 Comment 01/06/2018 6:10 PM CDT [facility] ([facility]) Comment:R87.610 Note Comment 01/06/2018 6:10 PM CDT [facility] ([facility]) Comment: The Pap smear is a screening test designed to aid in the detection of premalignant and malignant conditions of the uterine cervix. It is not a diagnostic procedure and should not be used as the sole means of detecting cervical cancer. Both false-positive and false-negative reports do occur. Note Comment 01/06/2018 6:10 PM CDT [facility] ([facility]) Comment:See below for HPV te sting results. Pathology/Cytolo gy PART OF UTERINE CERVIX / Unknown Collection / Unknown 12/31/2017 9:22 AM CDT 12/31/2017 9:41 AM CDT Narrative [facility] ([facility]) - 01/06/2018 6:10 PM CDT Performed at: - [address] [id number] Tailer Off: Jessie Foire MD, Phone: [phone] Specimen Comment: Source.............Cervix;Endocervix Specimen Comment: LMP / Prev Treat...[place] / BX Specimen Comment: No. of containers..01 ThinPrep Vial Ernesto Gaona MD LAB - PATHOLOGY/CYTO LOGY ORDERABLES Performing Organization Address City/[facility]/ZIP Co de Phone Number [facility] ([facility]) [address] [place] [address] * (ABNORMAL) HPV DNA PROBE HIGH RISK (12/31/2017 9:22 AM CDT) Pathologist [facility] Human papillomavirus High Risk Positive( A) Negative 01/06/2018 6:10 PM CDT [facility] ([facility]) Comment: This high-risk HPV test detects thirteen high-risk types (16/18/31/33/35/39/45/51/52/56/58/59/68) without differentiation. Pathology/Cytolo gy PART OF UTERINE CERVIX / Unknown Collection / Unknown 12/31/2017 9:22 AM CDT 12/31/2017 9:41 AM CDT [facility] ([facility]) - 01/06/2018 6:10 PM CDT Performed at: [address] [id number] Tailer Off: Jessie Fiore MD, Phone: [phone] Ernesto Gaona MD LAB - MICROBIOLOGY O RDERABLES Performing Organization Address City/[facility]/ZIP Co de Phone Number [facility] ([facility]) [address] [place] [address] * HEPATITIS SCREEN ACUTE (09/11/2015 2:16 PM CDT) Only the most recent of2 resultswithin the time period is included. Pathologist [facility] HAV Antibody IgM Non Reactive Non Reactive 09/11/2015 4:11 PM CDT [facility] HBsAg Non Reactive Non Reactive 09/11/2015 4:11 PM CDT [facility] HBc Antibody IgM Non Reactive Non Reactive 09/11/2015 4:11 PM CDT [facility] HCV Antibody Screen Non Reactive Non Reactive 09/11/2015 4:11 PM CDT [facility] HCV S/C Ratio 0.05 0.00 - 0.79 09/11/2015 4:11 PM CDT [facility] Comment: Kjrbyr-pw-crfaud ratio (S/CO) <0.80: Non Reactive Blood BLOOD SPECIMEN / Unknown Venipuncture / Unknown 09/11/2015 2:16 PM CDT 09/11/2015 2:53 PM CDT Narrative [facility] - 09/11/2015 4:11 PM CDT Non Reactive - Antibodies to Hepatitis C virus (HCV) were not detected, result does not exclude early acute HCV infection. Non Reactive - Antibodies to Hepatitis C virus (HCV) were not detected, result does not exclude early acute HCV infection. Yanely Billy MD LAB - CHEMISTRY ONESIMO HANSON Performing Organization Address [facility] de Phone Number [facility] [address] [place] [address] * CYTOLOGY CERVICAL/VAG THIN PREP+HPV (08/22/2014 4:40 PM CDT) Pathologist [facility] ThinPrep Pap See Scanned Report 09/05/2014 7:48 AM CDT [facility] REF LAB NON INTERF Miscellaneous samples (specimen) ENTIRE ENDOCERVIX / Unknown Collection / Unknown 08/22/2014 4:40 PM CDT 08/23/2014 7:06 AM CDT Naina Forman MD LAB - PATHOLOGY/C YTOLOGY ORDERABLES Performing Organization Address [facility] de Phone Number [facility] REF LAB NON INTERF [address] [place] [address] * GROSS + MICRO EXAM (STL) (09/23/2012 10:00 AM CDT) Case Report Surgical Pathology Report Case: [id number] -------- Authorizing Provider: Charlie Burks MD Ordering Provider: Charlie Burks MD Ordering Location: [facility] MATERNAL/ Collected: 09/23/2012 10:00 AM EVALUATION UNIT Pathologist: Ananda Horne MD Received: 09/23/2012 2:52 PM Signed Out: 09/24/2012 2:38 PM (Final) Specimen: Endocervix Curettings 09/24/2012 2:38 PM CDT [facility] Final Diagnosis 1. Endocervix, curettage: -- No pathologic diagnosis /na 09/24/2012 2:38 PM CDT [facility] Gross Description The specimen is labeled Jc, Vashana and ECC . It is received in formalin. It consists of a 0.7 x 0.5 cm aggregate of red-zendejas bloody mucoid material submitted entirely in a single cassette. LL/lma 09/24/2012 2:38 PM CDT [facility] Microscopic Description Sections reveal mucus and benign endocervical glandular epithelium. No dysplasia or malignancy is seen. /na 09/24/2012 2:38 PM CDT [facility] Synoptic Report 3 2:38 PM CDT [facility] Miscellaneous samples (specimen) CURETTINGS / Unknown 09/23/2012 10:00 AM CDT 09/23/2012 2:52 PM CDT Charlie Burks MD LAB - PATHOLOGY/CYTO LOGY ORDERABLES [facility] [address] [place] [address] * CARDIAC RHYTHM STRIP ORDER (08/20/2012 1:51 PM CDT) Narrative 08/20/2012 1:51 PM CDT Procedure Note Document, Scanned - 08/20/2012 1:51 PM CDT Scanned Document CARDIAC SERVICES ORD ERABLES * CULTURE TISSUE+GRAM STAIN (08/12/2012 3:40 PM CDT) Culture No Growth 08/15/2012 2:14 PM CDT [facility] Gram Stain Heavy Red blood cells 08/15/2012 2:14 PM CDT [facility] Gram Stain Light White blood cells 08/15/2012 2:14 PM CDT [facility] Gram Stain No organisms seen 08/15/2012 2:14 PM CDT [facility] Miscellaneous samples (specimen) CYST OF [place] DUCT / Unknown 08/12/2012 3:40 PM CDT 08/12/2012 4:00 PM CDT Brennen Young MD LAB - MICROBIOLOGY O [place] Performing Organization Address [facility] Co de Phone Number [facility] [address] [place] [address], [facility] * CULTURE ANAEROBE (08/12/2012 3:40 PM CDT) Culture No anaerobic organisms isolated 08/21/2012 1:01 PM CDT [facility] Miscellaneous samples (specimen) [place] / Unknown 08/12/2012 3:40 PM CDT 08/12/2012 4:00 PM CDT Brennen Young MD LAB - MICROBIOLOGY O [place] Performing Organization Address [facility] Co de Phone Number [facility] [address] [place] [address], [facility] * LAB HISTORICAL RESULTS-ONBASE (08/12/2012) Only the most recent of4 resultswithin the time period is included. 08/12/2012 Narrative [facility] - 08/24/2012 8:54 AM CDT Historical Provider LAB - CHEMISTRY O [place] Performing Organization Address [facility] Co de Phone Number [facility] [address] [place] [address], [facility] * (ABNORMAL) CBC W/O DIFFERENTIAL (08/07/2012 10:56 AM CDT) Pathologist [facility] WBC 5.3 4.4 - 10.7 x10^9/L 08/07/2012 11:12 AM CDT [facility] RBC 4.32 3.80 - 5.20 x10^12/L 08/07/2012 11:12 AM CDT [facility] Hemoglobin 9.4(L) 12.0 - 15.6 g/dL 08/07/2012 11:12 AM CDT [facility] Hematocrit 29.3(L) 35.9 - 45.5 % 08/07/2012 11:12 AM CDT [facility] MCV 67.8(L) 80.7 - 98.3 fl 08/07/2012 11:12 AM CDT [facility] MCH 21.8(L) 26.7 - 34.0 pg 08/07/2012 11:12 AM CDT [facility] MCHC 32.1 30.8 - 35.9 gm/dL 08/07/2012 11:12 AM CDT [facility] Platelet Count 232 153 - 416 x10^9/L 08/07/2012 11:12 AM [facility] RDW-CV 14.4 12.1 - 14.9 % 08/07/2012 [facility] MPV 10.8 9.4 - 12.9 fl 08/07/2012 11:12 AM CDT [facility] Blood specimen (specimen) BLOOD SPECIMEN / Unknown 08/07/2012 10:56 AM CDT 08/07/2012 11:03 AM CDT Brennen Young MD LAB - HEMATOLOGY ORD ERABLES Performing Organization Address City/State/[facility] Co de Phone Number [facility] [address] [place] [address] * CYTOLOGY CERVICAL/VAG SCREEN THIN PREP (06/17/2012 2:59 PM WAGON DRILLER) Pathologist [facility] ThinPrep Pap See Scanned Report (none) 06/30/2012 2:52 PM WAGON DRILLER [facility] Miscellaneous samples (specimen) ENTIRE ENDOCERVIX / Unknown 06/17/2012 2:59 PM WAGON DRILLER 06/17/2012 5:34 PM WAGON DRILLER Padmini Gastelum MD LAB - PATHOLOGY/CYTO LOGY ORDERABLES Performing Organization Address [facility] Co de Phone Number [facility] [address] [place] [address] * CYTOLOGY CERVICAL/VAG DIAG THIN PREP (01/10/2010 12:25 PM CDT) Comment Thin Prep [facility] Pap Smear Report See Scanned Report [facility] MICROSCOPIC CYTOLOGIC EXAMINATION OF SMEAR OF SPECIMEN FROM FEMALE GENITAL TRACT PREPARED USING PAPANICOLAOU TECHNIQUE / Unknown 01/10/2010 12:25 PM CDT 01/10/2010 3:06 PM CDT Narrative Resulting Agency Comment Performed By [facility]() [address] [place], [place] [address] Annabella Claros MD LAB - PATHOLOGY/CYTO LOGY ORDERABLES Performing Organization Address [facility] Co de Phone Number [facility] [address] [place] [address] * CULTURE WOUND (06/28/2009 9:12 PM WAGON DRILLER) Report [facility] Comment: Final - GRAM STAIN Heavy WBC's Heavy gram negative bacilli Moderate gram positive cocci Light gram positive bacilli CULTURE Light Other mixed aerobic chyna present ESCHERICHIA COLI Rare Ampicillin NANCY Sensitive<=0.25 Cefazolin NANCY Sensitive <=8 Ciprofloxacin NANCY Sensitive <=0.5 Gentamicin NANCY Sensitive <=0.5 Levofloxacin NANCY Sensitive <=1 Pip/Tazobactam NANCY Sensitive <=8 Trimethoprim/Sulfamethoxazole NANCY Sensitive <=10 COAG NEGATIVE STAPHYLOCOCCUS Light Probable skin chyna contaminant. DIPHTHEROIDS Moderate Probable skin chyna contaminant. CYST OF [place] / Unknown 06/28/2009 9:12 PM WAGON DRILLER 06/28/2009 9:13 PM WAGON DRILLER Narrative [facility] - 06/30/2009 1:46 PM WAGON DRILLER Bartholin cyst Andi Nunes PA-C LAB - MICROBIOLOGY O RDERABLES Performing Organization Address City/[facility]/ZIP Co de Phone Number [facility] [address] [place] [address] * APHERESIS/TRANSFUSION ORDER (04/27/2009 9:46 AM WAGON DRILLER) Narrative 04/27/2009 9:46 AM WAGON DRILLER Ordered by an unspecified provider. Transcriptions Document, Scanned - 04/20/2009 12:00 AM WAGON DRILLER Scanned Document NURSING - VITAL SIGN S AND ASSESSMENT * TYPE SCRN XMATCH RBC X2 (04/20/2009 6:24 PM WAGON DRILLER) Only the most recent of4 resultswithin the time period is included. Number of Units 2 [facility] BLOOD SPECIMEN / Unknown 04/20/2009 6:24 PM WAGON DRILLER 04/20/2009 6:24 PM WAGON DRILLER Yoli Hawley MD LAB - BLOOD BANK ORD ERABLES Performing Organization Address [facility] Co de Phone Number [facility] [address] [place] [address] * GLUCOSE PROTEIN KETONE URINE - POINT OF CAR (04/20/2009 3:40 PM WAGON DRILLER) Only the most recent of2 resultswithin the time period is included. Glucose UA neg Negative [facility] Protein UA neg Negative [facility] Ketone UA neg Negative [facility] QC Verified Yes [facility] POC T TESTING Urine specimen (specimen) URINE / Unknown 04/20/2009 3:40 PM WAGON DRILLER Ten Morrow MD LAB - POINT OF CARE ORDERABLES Performing Organization Address [facility] Co de Phone Number [place] [address] * URINALYSIS OBSTETRICS - POINT OF CARE (04/11/2009 2:50 AM WAGON DRILLER) Glucose UA negative Negative [facility] Bilirubin UA Negative [facility] PO [facility] TESTING Ketone UA negative Negative [facility] Specific [place] UA POCT 1.000 - 1.030 [facility] Blood UA Negative [facility] pH UA 5.0 - 8.0 pH units [facility] Protein UA trace Negative [facility] Urobilinogen UA 0.2 - 1.0 EU/dL [facility] Nitrite UA Negative [facility] Leukocyte UA Negative [facility] PO CT TEST[facility] QC Verified Yes [facility] POC T TESTING Urine specimen (specimen) URINE / Unknown 04/11/2009 2:50 AM WAGON DRILLER Ten Morrow MD LAB - POINT OF CARE ORDERABLES Performing Organization Address [facility] Co de Phone [place] [address] * LS RATIO FLUID (03/31/2009 12:43 PM WAGON DRILLER) L/S Ratio 1.6 SEE BELOW [facility] Comment: Immature <=1.5 Transitional 1.6-1.9 Mature >=2.0 Color Fluid Straw [facility] Character Amnio Moderately Cloudy [facility] Gestational Age 33.5 weeks by 13-14 week ultrasound [facility] Volume Amnio 5 mls ml [facility] Comment Volume: Please interpret with caution due to possible interference from red blood cells.May cause erronous results. [facility] Interpretation L/S Ratio [facility] Comment: PLEASE NOTE - L/S Ratio correlates with gestational age only in normal pregnancies. Abnormalities of , such as Retroplacental Bleeding and Ruptured Membranes, Hypertensive Renal or Cardiovascular Disease, Class D, E, and F Diabetes, and Maternal Hypertension can accelerate L/S Ratio maturation. Conversely, delayed maturation of L/S Ratio can be caused by Erythroblastosis Fetalis, Diabetes Mellitus (Class A, B, or C), and Chronic Nonhypertensive Glomerulonephritis. AMNIOTIC FLUID SPECIMEN / Unknown 03/31/2009 12:43 PM WAGON DRILLER 03/31/2009 12:43 PM WAGON DRILLER Jose Chappell MD LAB - BODY FLUID ORD ERABLES Performing Organization Address City/[facility]/ZIP Co de Phone Number [facility] [address] [place] [address] * LUNG MATURITY (03/31/2009 12:43 PM WAGON DRILLER) FLM 33.40 SEE BELOW mg/g [facility] Comment: See Interpretation for Normals Color Fluid Straw [facility] Character Amnio Moderately Cloudy [facility] Gestational Age 33.5 by 13-14 week ultrasoun [facility] Volume Amnio 5 ml [facility] Comment Volume: interpret with caution due to red cells [facility] Interpretation FLM [facility] Comment: FLM Immature ......... <= 39 mg/g Mature ......... >= 55 mg/g Results between 40 and 54 cannot be declared mature or immature and should be evaluated with caution. AMNIOTIC FLUID SPECIMEN / Unknown 03/31/2009 12:43 PM WAGON DRILLER 03/31/2009 12:43 PM WAGON DRILLER Jose Chappell MD LAB - BODY FLUID ORD ERABLES Performing Organization Address City/[facility] Co de Phone Number [facility] [address] [place] [address] * LAB MISC TEST (03/31/2009 10:53 AM WAGON DRILLER) Test Name GGT on Cyst Fluid [facility] Test Result Select V to view report [facility] Comment: GGT - 222 [facility] does not recommend running this assay on body fluids. There are no established Reference ranges for body fluids. CYST FLUID SPECIMEN / Unknown 03/31/2009 10:53 AM WAGON DRILLER 03/31/2009 12:44 PM WAGON DRILLER Narrative [facility] - 03/31/2009 1:46 PM WAGON DRILLER just rec in lab Jose Chappell MD LAB SEND OUT Performing Organization Address City/[facility] Co de Phone Number [facility] [address] [place] [id number] * CYTOLOGY NON-COB SAWYER PANEL (03/31/2009 10:53 AM WAGON DRILLER) Only the most recent of4 resultswithin the time period is included. Result CASE NUMBER [id number] Comment: ORDERING PHYSICIAN JOSE CHAPPELL SPECIMEN TYPE Cyst Fluid Date 03/31/2009 Physician Leida Reyes Specimen Adequacy Satisfactory for evaluation. Cell Pathology see comment *Comment The Thin Prep shows mainly inflammatory cells, namely neutrophils admixed with fewer numbers of lymphocytes. Superficial squamous epithelial cells are noted. There is no evidence of atypical or malignant cells. GM/db DIAGNOSIS I. Cyst fluid, in utero, Thin Prep -- Negative for malignant cells -- Neutrophils, lymphocytes, and squamous cells present GM/db Snomed. 04/03/2009 1504 <1> Pathologist Lin Strauss M.D. CPT code 91232 Gross Description Cloudy MISCELLANEOUS SAMPLES / Unknown 03/31/2009 10:53 AM WAGON DRILLER 03/31/2009 2:48 PM WAGON DRILLER Historical Provider MD LAB - PATHOLOGY/C YTOLOGY ORDERABLES * GROSS + MICRO EXAM (03/31/2009 10:53 AM WAGON DRILLER) Only the most recent of2 resultswithin the time period is included. Result CASE NUMBER [id number] Comment: ORDERING PHYSICIAN SHARATH REYES SPECIMEN TYPE Amniotic Fluid-cell block Date 03/31/2009 Physician Shaquille Reyes Gross Description The specimen is received in two containers labeled with the patient's name, Hilda Greene. The first container is labeled amniotic fluid, and consists of about 2 ml's of yellow cloudy watery fluid, submitted for cell block in cassette A. The second container is labeled cyst fluid, and consists of about 4 ml's of thick cloudy zendejas brown material, submitted for cell block in cassette B. LW carcamo Microscopic Exam 1. Microscopic examination of the cell block of amniotic fluid reveals blood intermixed with nucleated squams, abundant in nature. 2. Section of the cell block of cyst fluid labeled B reveals a button of tissue consisting of mainly blood, abundant neutrophils, nuclear protein debris. Viable epithelial cells are not seen for evaluation. Malignant cells are not seen. SR/dc Diagnosis 1. Amniotic fluid, cell block -- Blood and nucleated squams 2. Cyst fluid, cell block -- Blood and acute inflammatory exudate -- Negative for malignant cells SR/dc [place] DC Pathologist Fbaio Glover M.D. Snomed. 04/01/2009 0936 <2> CPT code 65981 x2 MISCELLANEOUS SAMPLES / Unknown 03/31/2009 10:53 AM WAGON DRILLER 03/31/2009 3:12 PM WAGON DRILLER Historical Provider LAB - PATHOLOGY/C YTOLOGY ORDERABLES * AMYLASE FLUID (03/31/2009 10:53 AM WAGON DRILLER) Amylase Fluid < 30 IU/L [facility] Fluid Type cyst fluid [facility] CYST FLUID SPECIMEN / Unknown 03/31/2009 10:53 AM WAGON DRILLER 03/31/2009 12:44 PM WAGON DRILLER Narrative [facility] - 03/31/2009 1:36 PM WAGON DRILLER just rec in alb Stephan Gardner MD LAB - BODY FLUID ORD ERABLES Performing Organization Address [facility] Co de Phone Number [facility] [address] [place] [address] * TYPE SCRN XMATCH RBC X1 (03/31/2009 6:05 AM WAGON DRILLER) Number of Units 1 [facility] BLOOD SPECIMEN / Unknown 03/31/2009 6:05 AM WAGON DRILLER 03/31/2009 7:29 AM WAGON DRILLER Shanna Hilton MD LAB - BLOOD BANK OR DERABLES Performing Organization Address [facility] Co de Phone Number [facility] [address] [place] [address] * SONOGRAM - COMPLETE (04/06/2008) Anatomical Region Laterality Modality Other Julito Boone MD [facility] ORDERABLES Care Teams Campaign Advisor Relationship Specialty Start Date End Date Morena Schroeder, EDUCATION AND TRAINING MANAGER-INSIDE SALES CONSULTANT [address] [place] [id number] PCP - General 06/23/19
--- OUTSIDE RECORDS SUMMARY | 2024-06-25 07:43 | XMS_ITS | Clinical Summary ---
Author Organization [facility] Address [address] [place] [id number] Care Team Providers Care Event Planning Manager Name Role Phone Morena Schroeder Primary Care Provider [phone] Allergies No known active allergies Medications No known medications Active Problems Problem Noted Date Diagnosed Date Chronic right-sided thoracic back pain 0 Comments Yes Family History * Patient is adopted Relation Status Comments Father Alive Mother Social History Tobacco Use Types Packs/Day Years Used Date Smoking Tobacco: Never Smokeless Tobacco: Never Alcohol Use Standard Drinks/Week Comments Not Currently 0 (1 standard drink = 0.6 oz pur e alcohol) currently PHQ-2 Answer Date Recorded PHQ-2 Score 0 06/16/2019 Comments Yes Sex and Gender Information Value Date Recorded Sex Assigned at Not on file Legal Sex Female 5:55 PM CDT Gender Identity Not on file Sexual Orientation Not on file Last Filed Vital Signs Vital Sign Reading Time Taken Comments Blood Pressure 117/80 06/16/2019 9:00 AM FITNESS CLUB MANAGER Pulse 77 06/16/2019 9:00 AM FITNESS CLUB MANAGER Temperature 36.7 C (98 F) 06/16/2019 9:00 AM FITNESS CLUB MANAGER Respiratory Rate 16 06/16/2019 9:00 AM FITNESS CLUB MANAGER Oxygen Saturation 100% 06/16/2019 9:00 AM FITNESS CLUB MANAGER Inhaled Oxygen Concentration - - Weight 111.1 kg (245 lb) 06/16/2019 9:00 AM FITNESS CLUB MANAGER Height 170.2 cm (5' 7 ) 06/16/2019 9:00 AM FITNESS CLUB MANAGER Body Mass Index 38.37 06/16/2019 9:00 AM FITNESS CLUB MANAGER Plan of Treatment Health Maintenance Due Date Last Done Comments Cervical Cancer Screening Pap Smear (Age 30 to 64) Every 3 Years 1987 Annual Physical 12/23/1990 PHQ-2 (Physician [place]) 1999 Hepatitis C 12/23/2005 DTaP, Tdap and Td Vaccines (1 - Tdap) 12/23/2006 12/08/1992, 10/21/1989, 07/23/1988, Additional history exists Hepatitis B Vaccines (1 of 3 - 19+ 3-dose series) 12/23/2006 Cervical Cancer Screening Pap with HPV Testing (Age 30 to 64) Every 5 Years 12/23/2017 Cervical Cancer Screening with HPV 12/23/2017 COVID-19 Vaccine ( - 2023-25 season) 2024 Influenza Adult (#1) 2024 PHQ-2 (Physician [place]) 05/19/2024 RSV Immunization or 60+ Years (1 - 1-dose 75+ series) 12/23/2062 HPV Vaccines Aged Out No longer eligi ble based on patient's age to complete this topic Meningococcal B Vaccine Aged Out No l onger eligible based on patient's age to complete this topic Meningococcal Vaccine Aged Out No sherin jose eligible based on patient's age to complete this topic Pneumococcal Vaccine: Pediatrics (0 to 5 Years) and At-Risk Patients (6 to 64 Years) Aged Out No longer eligible based on patient's age to complete this topic RSV Immunizations Under 20 Months Aged Out No longer eligible based on patient's age to complete this topic Insurance [facility] Care Teams Event Planning Manager Relationship Specialty Start Date End Date Morena Schroeder APNP [address] [place] [phone] PCP - General NURSE PRACTITIONER 06/16/19
--- OUTSIDE RECORDS SUMMARY | 2024-06-25 07:43 | XMS_ITS | CCD ---
Author Organization [facility] Address [address] [place] [address] Care Team Providers Care Spray Machine Operator Name Role Phone Unavailable Primary Care Provider Unavailabl e Medications No known medications Active Problems No known active problems Social History Tobacco Use Types Packs/Day Years Used Date Smoking Tobacco: Never Assessed Comments Unknown Sex and Gender Information Value Date Recorded Sex Assigned at Not on file Legal Sex Female 10:46 AM PST Gender Identity Not on file Sexual Orientation Not on file Plan of Treatment Not on file Procedures Procedure Name Priority Date/Time Associated Diagnosis Comments PANORAMIC RADIOGRAPHIC IMAGE Routine 08/07/2021 12:30 PM CDT PROPHYLAXIS - ADULT Routine 08/07/2021 1 2:30 PM CDT INTRAORAL - COMPREHENSIVE SERIES OF RADIOGRAPHIC IMAGES Routine 08/07/2021 12:30 PM CDT COMPREHENSIVE ORAL EVALUATION - NEW OR ESTABLISHED PATIENT Routine 08/07/2021 12:30 PM CDT from Last 3 Months or Most Recently Relevant to Health Maintenance
--- OUTSIDE RECORDS SUMMARY | 2024-06-25 07:43 | XMS_ITS | Referral Summary ---
Author Organization [facility] Address [address] [place] [address] Care Team Providers Care Methods Time Analyst Name Role Phone Morena Schroeder GUILLOTINE OPERATOR-DIRECTOR OF VITAL STATISTICS Primary Care Provider Source Comments [facility],non-owned Affiliates and Associated Physician Practices is amultiple site organization consisting of ambulatory clinics and hospital sitesin [place], [place], [place] and [place]. This disclosure is being madepursuant to the Care Everywhere program and may not contain all information available regarding this patient. Last updated 18.[employer] Allergies No known active allergies Medications Be aware that medications may not be up to date on this document. Always verify current medications with the patient. No known medications Active Problems Patient Care Coordination No te Formatting of this note migh t be different from the original. [id number] Problem Noted Date Diagnosed Date Obesity, Class [...] Dating: LMP=9 week US H/H/Plt: Hgb Elec: @massiel(5891)@ Genetic screening or testing: Pap: 01/2019 ASCUS-H/ [...] Administration Dates Next Due TDAP (7yrs+) 10/21/2019 Social History Tobacco Use Types Packs/Day Years [...] Mass Index 40.85 10/03/2023 11:52 AM CDT Functional Status Functional Status Response Date of Assess ment Is person deaf or have serious hearing difficult y? No 01/22/2020 Is person blind or have serious difficulty seein g? No 01/22/2020 Does person have serious dif ficulty walking/climbing stairs? No 01/22/2020 Does person have difficulty dressing/bathing? No 01/22/2020 Does person have difficulty doing errands alone? No 01/22/2020 Cognitive Status Response Date of Assessm ent Does person have difficulty concentrating/remembering/making decisions? No 01/22/2020 Plan of Treatment Upcoming Encounters Date Type Department Care Team (Late st Contact Info) Description 09/01/2024 11:10 AM CDT Office Visit [facility] - SCRAPER LOADER OPERATOR [address] [place] [address] Yarelis Arauz, LANDY-PRESTON [address] [facility] [address] [place] [address] Procedures Procedure Name Priority Date/Time Associated Diagnosis [...] A) Not detected 09/03/2023 6:07 AM CDT [facility] High Risk Human Papilloma Interp 09/03/2023 6:07 AM CDT [facility] Comment:High Risk Human Yonatan lloma Virus - Detected Pathology/Cytolo gy MISCELLANEOUS SAMPLES / Unknown 08/27/2023 3:57 PM CDT 08/28/2023 11:46 AM CDT Narrative [facility] - 09/03/2023 6:07 AM CDT [...] (cytology, histology, and clinical information). Yarelis Arauz GUILLOTINE OPERATOR-DIRECTOR OF VITAL STATISTICS LAB - MICROBIOLOGY ORDERABLES [facility] [address] [phone] * HIV-1 HIV-2 ANTIBODY + HIV P24 [...] purpose. For additional information please refer to http://education.Atlassian/faq/KNQ316 (This link is being provided for informational/ educational purposes only.) The performance of this assay has not been clinically validated in patients less than 2 years old. Test Performed at: [facility] [id number] [place] [address] RAZA HARDIN MD Blood BLOOD SPECIMEN / Unknown 08/27/2023 08/27/2023 2:57 PM CDT Yarelis Arauz APRN-DIRECTOR OF VITAL STATISTICS LAB - CHEMISTRY OR DERABLES Performing Organization Address City/State/[facility] Co de Phone Number [facility] [address] [place] [address] * HEPATITIS C ANTIBODY (02/10/2019 12:24 PM CDT) HCV Antibody Screen Non Reactive Non Reactive 02/10/2019 1:41 PM CDT [facility] HCV S/C Ratio 0.07 0.00 - 0.79 02/10/2019 1:41 PM CDT [facility] Comment: Ewdint-ha-wtbaae ratio (S/CO) <0.80: Non Reactive Blood BLOOD SPECIMEN / Unknown Venipuncture / Unknown 02/10/2019 12:24 PM CDT 02/10/2019 12:47 PM CDT Narrative [facility] - 02/10/2019 1:41 PM CDT Non Reactive - Antibodies to Hepatitis C virus (HCV) were not detected, result does not exclude early acute HCV infection. Louise Gardner MD LAB - CHEMISTRY O RDERABLES [facility] [address] [place] [address] from Last 3 Months or Most Recently [...] 9:45 AM 04/01/2009 5:37 AM Care Teams Methods Time Analyst Relationship Specialty Start Date End Date Morena Schroeder, GUILLOTINE OPERATOR-DIRECTOR OF VITAL STATISTICS [address] [place] [address] PCP - General 06/23/19
--- OUTSIDE RECORDS SUMMARY | 2024-06-25 07:43 | XMS_ITS | Clinical Summary ---
Author Organization [facility] Address [address] [place] [address] Care Team Providers Care Dip Painter Name Role Phone Unavailable Primary Care Provider [...] Orientation Not on file Plan of Treatment Health Maintenance Due Date Last Done Comments Dental Oral Exam 02/08/2022 08/07/2021 Dental Prophylaxis 02/08/2022 08/07/2021 Dental X-Ray: Bitewings 02/08/2022 08/07/2021 Dental X-Ray: Full Mouth 08/08/2024 08/07/2021 Dental X-Ray: Panoramic 08/08/2024 08/07/2021 Meningococcal B Vaccine Aged Out No l [...] or Most Recently Relevant to Health Maintenance Insurance [facility] PPO
--- OUTSIDE RECORDS SUMMARY | 2024-06-25 07:43 | XMS_ITS | Referral Summary ---
Author Organization [facility] Address [address] [place] [address] Care Team Providers Care Fish And Game Club Manager Name Role Phone Unavailable Primary Care Provider [...] Most Recently Relevant to Health Maintenance Insurance [employer] O
--- OUTSIDE RECORDS SUMMARY | 2024-06-25 07:43 | XMS_ITS | Encounter Summary ---
Author Organization [facility] Address [address] [place] [address] Care Team Providers Care Metal Trimmer Name Role Phone Unavailable Primary Care Provider Unavailabl e Prior Encounters Date Type Department Care Team Description 08/07/2021 12:30 PM CDT Office Visit [address] [address] Kia Hamm DMD Plan of Treatment Not on file Procedures Procedure Name Priority Date/Time Associated Diagnosis Comments TOPICAL APPLICATION OF FLUORIDE VARNISH Routine 08/07/2021 12:30 PM CDT PROPHYLAXIS - ADULT Routine 08/07/2021 1 2:30 PM CDT ORAL HYGIENE INSTRUCTIONS Routine 2021 12:30 PM CDT INTRAORAL PHOTO Routine 08/07/2021 12:30 PM CDT INTRAORAL PHOTO Routine 08/07/2021 12:30 PM CDT INTRAORAL PHOTO Routine 08/07/2021 12:30 PM CDT INTRAORAL PHOTO Routine 08/07/2021 12:30 PM CDT PANORAMIC RADIOGRAPHIC IMAGE Routine 08/07/2021 12:30 PM CDT INTRAORAL - COMPREHENSIVE SERIES OF RADIOGRAPHIC IMAGES Routine 08/07/2021 12:30 PM CDT COMPREHENSIVE ORAL EVALUATION - NEW OR ESTABLISHED PATIENT Routine 08/07/2021 12:30 PM CDT Visit Diagnoses Not on file Insurance [facility] PPO
--- OUTSIDE RECORDS SUMMARY | 2024-06-25 07:43 | XMS_ITS ---
Author Organization [facility] Address [address] [place] [address] Care Team Providers Care Research Center Director Name Role Phone Unavailable Unavailable Unavailable Surgery Details Not on file Complications Check Surgery Details section. Procedure Estimated Blood Loss Check Surgery Details section. Procedure Findings Check Surgery Details section. Procedure Specimens Taken Check Surgery Details section.
[2024-06-25 08:48] VITALS: BP 154/91; PULSE 98; RESP 18; TEMP 39.5; O2SAT 98
--- NOTE | 2024-06-25 09:37 | ED_ITS ---
HPI - URI/Sore Throat General Chief Complaint: Upper Respiratory Infection Stated Complaint: sore throat, body aches Time Seen by Provider: 06/25/24 09:08 History of Present Illness HPI Narrative: 38-year-old female presents to the emergency department for URI symptoms for the past 2 days. Patient reports cough, congestion, sore throat, body aches for 2 days. States this morning she spiked a fever of 101. She has not taken any medications for fever or symptoms. She denies nausea, vomiting or diarrhea. States her daughter was sick last week with influenza A. Related Data Allergies Allergy/AdvReac Type Severity Reaction Status Date / Time No Known Allergies Allergy Verified 03/18/22 08:15 Review of Systems Review of Systems: All systems reviewed & are unremarkable except as noted in HPI and below PMFSH Past Medical History Medical History UTI (urinary tract infection) Chlamydia Surgical History Surgical History History of section History of tonsillectomy Social History Social History Smoking status: Never smoker Second hand tobacco smoke exposure: No Alcohol intake: current Substance use: current Substance use type: does not use Spiritual care concerns: No Exam Narrative: GENERAL: Well-appearing, well-nourished, and in no acute distress. HEAD: Normocephalic, atraumatic. EYES: PERRLA and EOMI. ENT: Nares clear, no rhinorrhea or epistaxis. Mucous membranes moist. Bilateral TMs are wallace nonbulging with normal canals. Posterior pharynx without erythema or edema, no tonsillar hypertrophy, no uvular deviation. NECK: Supple. CHEST: Clear to auscultation. No respiratory distress. HEART: Regular rate and rhythm. No murmur heard. Normal peripheral pulses. ABDOMEN: Soft, nontender, nondistended, normal active bowel sounds. EXTREMITIES: Normal range of motion. No edema. SKIN: Warm, dry, no rash. NEURO: No focal deficits. Alert and oriented x3 Course Vital Signs Vital signs: Vital Signs Temperature 99.0 F 06/25/24 07:41 Pulse Rate 113 H 06/25/24 07:41 Respiratory Rate 14 06/25/24 07:41 Blood Pressure 148/94 H 06/25/24 07:41 Pulse Oximetry 100 06/25/24 07:41 Oxygen Delivery Room Air 06/25/24 07:41 Temperature 103.1 F H 06/25/24 08:48 Pulse Rate 98 06/25/24 08:48 Respiratory Rate 18 06/25/24 08:48 Blood Pressure 154/91 H 06/25/24 08:48 Pulse Oximetry 98 06/25/24 08:48 Oxygen Delivery Room Air 06/25/24 08:48 MDM - URI/Sore Throat MDM Narrative Medical decision making narrative: 38-year-old female presents emergency department for URI symptoms for the past 2 days. Triage vitals with tachycardia which has since resolved, however patient did spike a fever of 103.1 in the ED. She was given Tylenol. Exam is significant for the above. Will obtain viral swabs and reevaluate. Viral swabs positive for COVID consistent with presentation. Pt updated on results. Discussed supportive care, increased fluid intake, and return precautions. Patient is agreeable to plan verbalized understanding. Discharged in stable condition. Lab Data Labs: Lab Results 06/25/24 Range/Units 08:57 Influenza A (RT-PCR) Negative (Negative) Influenza B (RT-PCR) Negative (Negative) RSV (RT-PCR) Negative (Negative) SARS-CoV-2 RNA (RT-PCR) Positive A (Negative) Discharge Plan Discharge Clinical Impression: COVID-19 Patient Disposition: Home, Self-Care Condition: Stable Instructions: Antibiotic Form, COVID-19 (Coronavirus Disease 2019) (ED) Additional Instructions: Your evaluated in the emergency department for body aches, fever, sore throat, headache. You tested positive for COVID-19. Please rest, drink plenty of fluids, take Tylenol/ibuprofen as needed for body aches and fever. Quarantine for 5 days since the onset of symptoms. Return to the emergency department if you are unable to tolerate food or fluids or other concerning symptoms. Patient Language: Gibraltarian Prescriptions: No Action sulfamethoxazole-trimethoprim [Bactrim DS] 800-160 mg tablet 1 tablet PO Q12H Qty: 20 0RF mupirocin 2 % ointment 1 applic topical TID Qty: 22 0RF polymyxin B sulf-trimethoprim 10,000 unit- 1 mg/mL drops 1 drp EACH EYE QID 7 Days Qty: 10 0RF valacyclovir [Valtrex] 1 gram tablet 2,000 mg PO Q12H Qty: 4 0RF Follow-up/Referrals: Elda,SIL Berg [Primary Care Provider] -
[2024-06-25 09:44] LABS: Influenza A QL RT-PCR Negative (Negative); Influenza B QL RT-PCR Negative (Negative); RSV RNA, RT-PCR Negative (Negative); SARS-CoV-2 RNA PCR Positive (Negative)
--- OUTSIDE RECORDS SUMMARY | 2024-06-25 10:03 | XMS_ITS ---
Author Organization [facility] Address [address] [place] [address] Care Team Providers Care Early Morning Babysitter Name Role Phone Unavailable Unavailable Unavailable Surgery Details Not on file Complications Check Surgery Details section. Procedure Estimated Blood Loss Check Surgery Details section. Procedure Findings Check Surgery Details section. Procedure Specimens Taken Check Surgery Details section.
--- OUTSIDE RECORDS SUMMARY | 2024-06-25 10:03 | XMS_ITS | CCD ---
Author Organization [facility] Address [address] [place] [address] Care Team Providers Care Bowl Turner Name Role Phone Unavailable Primary Care Provider [...]
--- OUTSIDE RECORDS SUMMARY | 2024-06-25 10:03 | XMS_ITS | Referral Summary ---
Author Organization [facility] Address [address] [place] [address] Care Team Providers Care Lieutenant Shift Supervisor Name Role Phone Unavailable Primary Care Provider [...] Most Recently Relevant to Health Maintenance Insurance [employer]
--- OUTSIDE RECORDS SUMMARY | 2024-06-25 10:03 | XMS_ITS | Encounter Summary ---
Author Organization [facility] Address [address] [place] [address] Care Team Providers Care Lean Manufacturing Engineer Name Role Phone Unavailable Primary Care Provider Unavailabl e Prior Encounters Date Type Department Care Team Description 08/07/2021 12:30 PM CDT Office Visit [address] [address] Kia Hamm DMD Plan of Treatment Not [...] CDT Visit Diagnoses Not on file Insurance [facility] PPO
--- OUTSIDE RECORDS SUMMARY | 2024-06-25 10:03 | XMS_ITS | Clinical Summary ---
Author Organization [facility] Address [address] [place] [address] Care Team Providers Care Networking Technology Instructor Name Role Phone Unavailable Primary Care Provider [...] Most Recently Relevant to Health Maintenance Insurance [facility] PPO
--- OUTSIDE RECORDS SUMMARY | 2024-06-25 10:04 | XMS_ITS | Referral Summary ---
Author Organization [facility] Address [address] [place] [address] Care Team Providers Care Blood Bank Order Control Clerk Name Role Phone Morena Schroeder RATOPRINTER-CHIEF STEWARD/STEWARDESS Primary Care Provider Source Comments [facility],non-owned Affiliates and Associated Physician Practices is amultiple site organization consisting of ambulatory clinics and hospital sitesin [place], [place], [place] and [place]. This disclosure is being madepursuant to the Care Everywhere program and may not contain all information available regarding this patient. Last updated 18.[employer] Allergies No known active allergies Medications Be aware that medications may not be up to date on this document. Always verify current medications with the patient. No known medications Active Problems Patient Care Coordination No te Formatting of this note migh t be different from the original. [id number] Problem Noted Date Diagnosed Date Obesity, Class [...] Dating: LMP=9 week US H/H/Plt: Hgb Elec: @massiel(6091)@ Genetic screening or testing: Pap: 01/2019 ASCUS-H/ [...] CDT Office Visit [facility] - ENGINE CLEANER [address] [facility] [address] [place] [address] Yarelis Arauz, LANDY-PRESTON [address] [facility] [address] [place] [address] Procedures Procedure Name Priority Date/Time [...] A) Not detected 09/03/2023 6:07 AM CDT [facility] High Risk Human Papilloma Interp 09/03/2023 6:07 AM CDT [facility] Comment:High Risk Human Yonatan lloma Virus - Detected Pathology/Cytolo gy MISCELLANEOUS SAMPLES / Unknown 08/27/2023 3:57 PM CDT 08/28/2023 11:46 AM CDT Narrative [facility] - 09/03/2023 [...] (cytology, histology, and clinical information). Yarelis Arauz RATOPRINTER-CHIEF STEWARD/STEWARDESS LAB - MICROBIOLOGY ORDERABLES [facility] [address] [phone] * HIV-1 HIV-2 ANTIBODY + HIV P24 [...] purpose. For additional information please refer to http://education.Periscape/faq/NXP261 (This link is being provided for informational/ educational purposes only.) The performance of this assay has not been clinically validated in patients less than 2 years old. Test Performed at: [facility] [address] [place] [address] RAZA HARDIN MD Blood BLOOD SPECIMEN / Unknown 08/27/2023 08/27/2023 2:57 PM CDT Yarelis Arauz APRN-CHIEF STEWARD/STEWARDESS LAB - CHEMISTRY OR DERABLES Performing Organization Address City/State/[facility] Co de Phone Number [facility] [address] [place] [address] * HEPATITIS C ANTIBODY (02/10/2019 12:24 PM CDT) HCV Antibody Screen Non Reactive Non Reactive 02/10/2019 1:41 PM CDT [facility] HCV S/C Ratio 0.07 0.00 - 0.79 02/10/2019 1:41 PM CDT [facility] Comment: Ztapkp-ew-cmvukw ratio (S/CO) <0.80: Non Reactive Blood BLOOD SPECIMEN / Unknown Venipuncture / Unknown 02/10/2019 12:24 PM CDT 02/10/2019 12:47 PM CDT Narrative [facility] - 02/10/2019 1:41 PM CDT Non Reactive - Antibodies to Hepatitis C virus (HCV) were not detected, result does not exclude early acute HCV infection. Louise Gardner MD LAB - CHEMISTRY O RDERABLES [facility] [address] [place] [address] from Last 3 Months or Most Recently [...] 9:45 AM 04/01/2009 5:37 AM Care Teams Blood Bank Order Control Clerk Relationship Specialty Start Date End Date Mroena Schroeder, RATOPRINTER-CHIEF STEWARD/STEWARDESS [address] [place] [id number] PCP - General 06/23/19
--- OUTSIDE RECORDS SUMMARY | 2024-06-25 10:04 | XMS_ITS | Patient Health Summary ---
Author Organization [facility] Address [address] [place] [address] Care Team Providers Care Technology Coordinator Name Role Phone Morena Schroeder INDUSTRIAL DESIGNER-RESIN FILTERER Primary Care Provider Note from [facility],non-owned Affiliates and Associated Physician Practices is amultiple site organization consisting of ambulatory clinics and hospital sitesin [place], [place], [place] and [place]. This disclosure is being madepursuant to the Care Everywhere program and may not contain all information available regarding this patient. Last updated 18.[facility] Allergies No known active allergies Medications Be [...] supervision of other normal in third trimester ([facility]) * URINALYSIS - POINT OF CARE (AMB) [facility](Performed 01/06/2020) Performed for Encounter for supervision of other normal in third trimester ([facility]) * URINALYSIS - POINT OF CARE (AMB) [facility](Performed 12/30/2019) Performed for Encounter for supervision of other normal in third trimester ([facility]) * NONSTRESS TEST(Performed 12/29/2019) Performed for Syncope, [...] supervision of normal in third trimester, unspecified ([facility]) * MA SONO FU OR REPEAT(Performed 12/22/2019) Performed for Marginal insertion of umbilical cord affecting management of mother in third trimester ([facility]) * URINALYSIS - POINT OF CARE (AMB) [facility](Performed 12/22/2019) Performed for Encounter for supervision of normal in third trimester, unspecified ([facility]) * IMAGING/RADIOLOGY/XRAY RESULTS ORDER(Performed 11/23/2019) * MA SONO FU OR REPEAT(Performed 11/22/2019) Performed for Marginal insertion of umbilical cord affecting management of mother in third trimester ([facility]), Evaluate anatomy not seen on prior sonogram, Encounter for ultrasound to assess growth ([facility]) * MA DOPPLER VELOCIMETRY ; UMBILICAL ARTERY(Performed 11/22/2019) Performed for Marginal insertion of umbilical cord affecting management of mother in third trimester ([facility]), Evaluate anatomy not seen on prior sonogram, Encounter for ultrasound to assess growth ([facility]) * URINALYSIS - POINT OF CARE (AMB) [facility](Performed 11/22/2019) Performed for Encounter for supervision of normal in third trimester, unspecified ([facility]) * IMAGING/RADIOLOGY/XRAY RESULTS ORDER(Performed 10/22/2019) * RPR W REFLEX TO TITER+CONFIRM(Performed 10/21/2019) Performed for Encounter for supervision of other normal in second trimester ([facility]) * HIV-1 HIV-2 ANTIBODY + HIV P24 AG PANEL(Performed 10/21/2019) Performed for Encounter for supervision of other normal in second trimester ([facility]) * CBC W AUTO DIFFERENTIAL(Performed 10/21/2019) Performed for Encounter for supervision of other normal in second trimester ([facility]) * GTT 1 HR (50G) GESTATIONAL SCREEN(Performed 10/21/2019) Performed for Encounter for supervision of other normal in second trimester ([facility]) * URINALYSIS - POINT OF CARE (AMB) [facility](Performed 10/21/2019) Performed for Encounter for supervision of other normal in second trimester ([facility]) * URINALYSIS - POINT OF CARE (AMB) [facility](Performed 07/22/2019) Performed for Encounter for supervision of other normal in second trimester ([facility]) * IMAGING/RADIOLOGY/XRAY RESULTS ORDER(Performed 06/24/2019) * HIV-1 HIV-2 ANTIBODY + HIV P24 AG PANEL(Performed 06/23/2019) * HEMOGLOBIN SOLUBILITY REFLX FRAC(Performed 06/23/2019) Performed for Encounter for supervision of other normal in first trimester ([facility]) * PROFILE I W/ HBSAG(Performed 06/23/2019) Performed for Encounter for supervision of other normal in first trimester ([facility]) * CULTURE URINE(Performed 06/23/2019) Performed for Encounter for supervision of other normal in first trimester ([facility]) * C. TRACHOMATIS + N. GONORRHOEAE + TRICH CHLOE(Performed 06/23/2019) Performed for Encounter for supervision of other normal in first trimester ([facility]) * MA ULTRASOUND, UTERUS(Performed 06/23/2019) Performed for Encounter to determine viability of , single or unspecified fetus ([facility]) * URINALYSIS - POINT OF CARE (AMB) [...] GROSS + MICRO EXAM(Performed 03/31/2009) * CYTOLOGY NON-JAVA LEAD PANEL(Performed 03/31/2009) * CYTOLOGY NON-JAVA LEAD PANEL(Performed 03/31/2009) * GROSS + MICRO EXAM(Performed 03/31/2009) Performed for Abn NEC-Antepar (HCC) * CYTOLOGY NON-JAVA LEAD PANEL(Performed 03/31/2009) Performed for Abn NEC-Antepar (HCC) * CYTOLOGY NON-JAVA LEAD PANEL(Performed 03/31/2009) Performed for Abn NEC-Antepar (HCC) [...] CDT) Case Report Surgical Pathology Report Case: [id number] Authorizing Provider: Arielle Simmons MD Collected: 09/16/2023 11:37 AM Ordering Location: [facility] - Received: 09/17/2023 01:56 PM ENGRAVER SEALS Pathologist: Avani Rowland MD Specimens: A) - [...] substantiates the final diagnosis. 09/18/2023 12:22 PM [facility] Clinical History The patient is a 37-year-old woman with a history of abnormal Pap smears who underwent cervical biopsy and curettage. 09/18/2023 12:22 PM [facility] Gross Description The requisition and [...] toto in B1. MSL 09/18/2023 12:22 PM [facility] Pathologist Location at [facility] 09/18/2023 12:22 PM [facility] Disclaimer The performance characteristics of all immunohistochemical and indirect immunofluorescence stains (if any) cited in this report were determined by the Histopathology Laboratory of [facility]. Some of these tests were developed by [...] the attending (teaching) pathologist. 09/18/2023 12:22 PM [facility] Embedded Images 09/18/2023 12:22 PM [facility] Pathology/Cytology CURETTINGS / Unknown 09/16/2023 11:37 AM CDT 09/17/2023 1:56 PM CDT Miscellaneous samples (specimen) CURETTINGS / Unknown 09/16/2023 11:37 AM CDT 09/17/2023 1:56 PM CDT Arielle Simmons MD LAB - PATHOLOGY/C YTOLOGY ORDERABLES [facility] [address] [place] [address], [facility] [phone] * HCG URINE QUALITATIVE - POINT OF CARE (AMB) (09/16/2023 10:54 AM CDT) HCG Qual Urine Negative Negative [facility] [address] QC Verified Yes Yes [facility] [address] Urine URINE / Unknown 09/16/2023 1 0:54 AM CDT Arielle Simmons MD LAB - POINT OF CA RE ORDERABLES Performing Organization Address City/[facility]/ZIP Co de Phone Number [facility] [address] [place] [address], [facility] [phone] * (ABNORMAL) HPV DETECTION HIGH RISK CHLOE (08/27/2023 3:57 PM CDT) High Risk Human Papilloma Result Detected( A) Not detected 09/03/2023 6:07 AM CDT [facility] High Risk Human Papilloma Interp 09/03/2023 6:07 AM CDT [facility] Comment:High Risk [...] (cytology, histology, and clinical information). Yarelislori Arauz INDUSTRIAL DESIGNER-[facility] LAB - MICROBIOLOGY ORDERABLES Performing Organization Address [facility] Co de Phone Number [facility] [address] [place] [address] * HPV GENOTYPES 16,18/45 (08/27/2023 3:57 PM CDT) Human papillomavirus Genotype 16 by TMA Not detected Not detected 09/03/2023 10:31 AM CDT [facility] Human papillomavirus Genotype 18/45 by TMA Not detected Not detected 09/03/2023 10:31 AM CDT [facility] Pathology/Cytolo gy MISCELLANEOUS SAMPLES / Unknown 08/27/2023 3:57 PM CDT 08/28/2023 11:46 AM CDT [facility]Y LAB - 09/03/2023 10:31 AM [...] available laboratory and clinical data. Yarelis Arauz APRN-[facility] LAB - MICROBIOLOGY ORDERABLES Performing Organization Address [facility] de Phone Number [facility] [address] [place] [address] * C. TRACHOMATIS + N. GONORRHOEAE + TRICH CHLOE (08/27/2023 3:57 PM CDT) Only the most recent of2 resultswithin the time period is included. Chlamydia Trachomatis CHLOE Not detected Not detected 08/29/2023 2:24 PM [facility]T [facility] Neisseria Gonorrhoeae CHLOE Not detected Not detected 08/29/2023 2:24 PM CDT [facility] Trichomonas Vaginalis CHLOE Not detected Not detected 08/29/2023 2:24 PM CDT [facility] Pathology/Cytolo gy MISCELLANEOUS SAMPLES / Unknown 08/27/2023 3:57 PM CDT 08/28/2023 11:46 AM CDT Narrative [facility] - 08/29/2023 2:24 PM CDT [...] Gen-Probe Aptima Trichomonas vaginalis Assay on the [employer] system and rectal and pharyngeal swabs with Gen-Probe Aptima combo 2 were determined by the Molecular Diagnostics Laboratory at [facility]. They have not been cleared or approved [...] testing. Yarelis DAVIS LAB - MICROBIOLOGY ORDERABLES [facility] [address] [phone] * PAP IMAGE-GUIDED W HPV+CT/NG+TRICH (08/27/2023 3:57 PM CDT) Case Report Gynecologic Cytology Report Case: [id number] Authorizing Provider: Yarelis Arauz APRN-CNP Collected: 08/27/2023 03:57 PM Ordering Location: [facility] - Received: 08/28/2023 11:46 AM [employer] First Screen: Verito Gill Pathologist: Mauro Rushing [...] 12:26 PM CDT [facility] Interpretation JAVA LEAD Atypical squamous cells of undetermined significance (ASC-US). 09/02/2023 12:26 PM CDT [facility] Pap Footnote The Pap Smear is a screening test. False positive and false negative results occur. Negative results do not preclude abnormalities, thus clinical correlation is required. This specimen was evaluated by the [employer] along with an additional manual rescreening by a load dispatcher and/or pathologist. 09/02/2023 12:26 PM [facility]T [facility] Embedded Images 12:26 PM CDT [facility] Pathology/Cytolo gy MISCELLANEOUS SAMPLES / Unknown 08/27/2023 3:57 PM CDT 08/28/2023 11:46 AM CDT Yarelis Arauz APRN-[facility] LAB - PATHOLOGY/CY TOLOGY ORDERABLES Performing Organization Address City/State/[facility] Co de Phone Number [facility] [address] [phone] * HIV-1 HIV-2 ANTIBODY + HIV P24 [...] purpose. For additional information please refer to http://education.[employer].Outcome Referrals/faq/GIG181 (This link is being provided for informational/ educational purposes only.) The performance of this assay has not been clinically validated in patients less than 2 years old. Test Performed at: [facility] [email or web address] [id number] [facility] [place] [address] RAAZ HARDIN MD Blood BLOOD SPECIMEN / Unknown 08/27/2023 08/27/2023 2:57 PM CDT Yarelis Arauz APRN-RESIN FILTERER LAB - CHEMISTRY OR DERABLES Performing Organization Address [facility] Co de Phone Number [email or web address] [phone] [place] [address] * TREPONEMA PALLIDUM POS REFLX RPR (08/27/2023) [...] high. REPORT COMMENT: FASTING:NO Test Performed at: [facility] [address] [id number] [place] Blood BLOOD SPECIMEN / Unknown 08/27/2023 08/27/2023 2:57 PM CDT Yarelis Arauz APRN-RESIN FILTERER LAB - SEROLOGY ORD ERABLES Performing Organization Address [facility] Co de Phone Number [email or web address] [phone] [place] [address] * IMAGING RADIOLOGY XRAY RESULTS ORDER (01/26/2020 [...] - 2.2 mmol/L 01/22/2020 10:21 AM CDT [facility] Blood BLOOD SPECIMEN / Unknown Lab Venipuncture / Unknown 01/22/2020 9:57 AM CDT 01/22/2020 10:04 AM CDT Carolann Tony MD LAB - CHEMISTRY O RDERABLES Performing Organization Address City/[facility] Co de Phone Number [facility] [address] [place] [address] * CULTURE BLOOD (01/22/2020 3:51 AM CDT) Only the most recent of2 resultswithin the time period is included. Culture No growth day 5 NANCY 01/27/2020 8:00 AM CDT [facility] Blood PERIPHERAL BLOOD / Unknown Lab Venipuncture / Unknown 01/22/2020 3:51 AM CDT 01/22/2020 4:10 AM CDT Carolann Tony MD LAB - MICROBIOLOG Y ORDERABLES Performing Organization Address [facility] Co de Phone Number [facility] [address] [place], [place] [id number] [place] [address] * XR CHEST 1VW PORTABLE (01/22/2020 3:45 [...] Yellow Straw, Yellow 01/22/2020 3:12 AM CDT [facility] Clarity UA Clear Clear 01/22/2020 3:12 AM CDT [facility] Glucose UA Negative Negative 01/22/2020 3:12 AM CDT [facility] Bilirubin UA Negative Negative 01/22/2020 3:12 AM CDT [facility] Ketone UA 1+(A) Negative 01/22/2020 3:12 AM CDT [facility] Specific Fillmore UA 1.027 1.005 - 1.030 01/22/2020 3:12 AM CDT [facility] Blood UA Negative Negative 01/22/2020 3:12 AM CDT [facility] pH UA 6.0 5.0 - 8.0 pH 01/22/2020 3:12 AM CDT [facility] Protein UA 2+(A) Negative 01/22/2020 3:12 AM CDT [facility] Urobilinogen UA Negative Negative mg/dL 01/22/2020 3:12 AM CDT [facility] Nitrite UA Negative Negative 01/22/2020 3:12 AM CDT [facility] Leukocyte UA Negative Negative 01/22/2020 3:12 AM CDT [facility] Urine Microscopy Urine microscopy to follow 01/22/2020 3:12 AM CDT [facility] Urine URINE SPECIMEN OBTAINED BY SINGLE CATHETERIZATION OF URINARY BLADDER / Unknown Collection / Unknown 01/22/2020 2:55 AM CDT 01/22/2020 3:02 AM CDT Narrative [facility] - 01/22/2020 3:12 AM CDT Carolann Tony MD LAB - URINALYSIS ORDERABLES [facility] [address] [place] [address] * URINE MICROSCOPIC ONLY (01/22/2020 2:55 AM CDT) RBC UA 0-2 None Seen, 0-2, 3-5 # /hpf 01/22/2020 3:14 AM CDT [facility] WBC UA 0-5 None Seen, 0-5 # /hpf 01/22/2020 3:14 AM CDT [facility] Bacteria UA None Seen None Seen 01/22/2020 3:14 AM CDT [facility] Squamous Epithelial Cells 0-2 None Seen, 0-2, 3-5 /hpf 01/22/2020 3:14 AM CDT [facility] Mucus UA 1+ /LPF 01/22/2020 3:14 AM CDT [facility] Urine URINE SPECIMEN OBTAINED BY SINGLE CATHETERIZATION OF URINARY BLADDER / Unknown Collection / Unknown 01/22/2020 2:55 AM CDT 01/22/2020 3:02 AM CDT Narrative [facility] - 01/22/2020 3:14 AM CDT Carolann Tony MD LAB - URINALYSIS ORDERABLES Performing Organization Address [facility] de Phone Number [facility] [address] [place] [address] * CULTURE URINE (01/22/2020 2:55 AM CDT) Only the most recent of4 resultswithin the time period is included. Culture Urine No growth (<100 CFU/mL) NANCY 01/23/2020 8:46 AM CDT [facility] Urine URINE SPECIMEN OBTAINED BY SINGLE CATHETERIZATION OF URINARY BLADDER / Unknown Collection / Unknown 01/22/2020 2:55 AM CDT 01/22/2020 3:04 AM CDT Carolann Tony MD LAB - MICROBIOLOG Y ORDERABLES Performing Organization Address City/[facility]/ZIP Co de Phone Number [facility] [address] [place] [address], [facility] [phone] * (ABNORMAL) PROTEIN CREATININE RATIO URINE RANDOM PNL (01/22/2020 2:54 AM CDT) [facility] Protein Urine 63.2(H) <11.9 mg/dL 01/22/2020 3:41 AM CDT [facility] Creatinine Urine 142.00 mg/dL 01/22/2020 3:41 AM CDT [facility] Protein/Creatin ine Ratio Urine 0.45 01/22/2020 3:41 AM CDT [facility] Urine URINE SPECIMEN OBTAINED BY CLEAN CATCH PROCEDURE / Unknown Collection / Unknown 01/22/2020 2:54 AM CDT 01/22/2020 3:02 AM CDT Carolann Tony MD LAB - URINE CHEMI STRY ORDERABLES Performing Organization Address City/State/[facility] Co de Phone Number [facility] [address] [place] [address] * (ABNORMAL) CBC W AUTO DIFFERENTIAL (01/22/2020 2:40 AM CDT) Only the most recent of11 resultswithin the time period is included. [facility] WBC 7.7 4.4 - 10.7 x10E9/L 01/22/2020 2:59 AM CDT [facility] WBC Corrected 01/22/2020 2:59 AM CDT [facility] RBC 3.28(L) 3.80 - 5.20 x10E12/L 01/22/2020 2:59 AM CDT [facility] Hemoglobin 7.5(L) 12.0 - 15.6 gm/dL 01/22/2020 2:59 AM CDT [facility] Hematocrit 23.7(L) 35.9 - 45.5 % 01/22/2020 2:59 AM CDT [facility] MCV 72.3(L) 80.7 - 98.3 fl 01/22/2020 2:59 AM CDT [facility] MCH 22.9(L) 26.7 - 34.0 pg 01/22/2020 2:59 AM CDT [facility] MCHC 31.6 30.8 - 35.9 gm/dL 01/22/2020 2:59 AM CDT [facility] Platelet Count 243 153 - 416 x10E9/L 01/22/2020 2:59 AM CDT [facility] RDW-CV 15.3(H) 12.1 - 14.9 % 01/22/2020 2:59 AM [facility] MPV 11.6 9.4 - 12.9 fl 01/22/2020 2:59 AM [facility] Neutrophils % 70.3 44.0 - 73.0 % 01/22/2020 2:59 AM [facility] Lymphocytes % 17.4(L) 20.0 - 43.0 % 01/22/2020 2:59 AM [facility] Monocytes % 10.2 5.0 - 13.0 % 01/22/2020 2:59 AM [facility] Eosinophils % 0.8 0.0 - 6.0 % 01/22/2020 2:59 AM [facility] Basophils % 0.3 0.0 - 2.0 % 01/22/2020 2:59 AM [facility] Immature Granulocytes 1.0 0 - 1 % 01/22/2020 2:59 AM [facility] Neutrophil Absolute 5.39 2.01 - 7.14 x10E9/L 01/22/2020 2:59 AM [facility] Lymphocytes Absolute 1.33 1.07 - 3.94 x10E9/L 01/22/2020 2:59 AM T [facility] Monocytes Absolute 0.78 0.26 - 1.07 x10E9/L 01/22/2020 2:59 AM [facility] Eosinophils Absolute 0.06 0 - 0.47 x10E9/L 01/22/2020 2:59 AM [facility] Basophils Absolute 0.02 0 - 0.08 x10E9/L 01/22/2020 2:59 AM [facility] Immature Granulocytes Absolute 0.08(H) 0.00 - 0.06 x10E9/L 01/22/2020 2:59 AM [facility] nRBC Auto 0 /100 WBC 01/22/2020 2:59 AM [facility] Blood BLOOD SPECIMEN / Unknown Venipuncture / Unknown 01/22/2020 2:40 AM CDT 01/22/2020 2:42 AM CDT Carolann Tony MD LAB - HEMATOLOGY ORDERABLES [facility] [address] [place] [address] * (ABNORMAL) COMPREHENSIVE METABOLIC PANEL (01/22/2020 2:40 AM CDT) Only the most recent of3 resultswithin the time period is included. Glucose 71 70 - 105 mg/dL 01/22/2020 3:43 AM CDT [facility] Sodium 138 136 - 145 mmol/L 01/22/2020 3:43 AM CDT [facility] Potassium 3.2(L) 3.5 - 5.1 mmol/L 01/22/2020 3:43 AM CDT [facility] Chloride 107 98 - 107 mmol/L 01/22/2020 3:43 AM CDT [facility] CO2 18(L) 23 - 31 mmol/L 01/22/2020 3:43 AM CDT [facility] Calcium 8.4 8.4 - 10.4 mg/dL 01/22/2020 3:43 AM CDT [facility] Anion Gap 13 8 - 16 mmol/L 01/22/2020 3:43 AM CDT [facility] BUN 14 7 - 18.7 mg/dL 01/22/2020 3:43 AM CDT [facility] Creatinine 0.70 0.57 - 1.11 mg/dL 01/22/2020 3:43 AM CDT [facility] Alkaline Phosphatase 87 40 - 150 U/L 01/22/2020 3:43 AM CDT [facility] ALT 23 0 - 61 U/L 01/22/2020 3:43 AM CDT [facility] AST 38(H) 5 - 34 U/L 01/22/2020 3:43 AM CDT [facility] Protein Total 6.6 6.4 - 8.3 gm/dL 01/22/2020 3:43 AM CDT [facility] Albumin 3.0(L) 3.5 - 5.2 gm/dL 01/22/2020 3:43 AM CDT [facility] Bilirubin Total 0.6 0.2 - 1.0 mg/dL 01/22/2020 3:43 AM CDT [facility] eGFR by MDRD >60 >60 mL/min/1.7 3m2 01/22/2020 3:43 AM CDT [facility] eGFR by MDRD >60 >60 mL/min/1.7 3m2 01/22/2020 3:43 AM CDT [facility] Blood BLOOD SPECIMEN / Unknown Venipuncture / Unknown 01/22/2020 2:40 AM CDT 01/22/2020 3:02 AM CDT Carolann Tony MD LAB - CHEMISTRY O RENETTA Performing Organization Address [facility] Co de Phone Number [facility] [address] [place] [address] * (ABNORMAL) LDH BLOOD (01/22/2020 2:40 AM CDT) LDH 267(H) 125 - 220 U/L 01/22/2020 3:43 AM CDT [facility] Blood BLOOD SPECIMEN / Unknown Venipuncture / Unknown 01/22/2020 2:40 AM CDT 01/22/2020 3:02 AM CDT Carolann Tony MD LAB - CHEMISTRY O RENETTA Performing Organization Address [facility] de Phone Number [facility] [address] [place] [address] * (ABNORMAL) BLOOD GASES CORD KVEIN (01/17/2020 11:24 AM CDT) Only the most [...] AM CDT [facility] Sample Site [facility] 01/17/2020 11:29 AM CDT [facility] Sample Type Venous 01/17/2020 11:29 AM CDT [facility] RESP THERAPY Real Estate Ac[employer] Analyst ID [id number] 01/17/2020 11:29 AM CDT [facility] Blood CORD BLOOD SPECIMEN / Unknown 01/17/2020 11:24 AM CDT 01/17/2020 11:24 AM CDT Lavinia Hunt MD LAB - BLOOD GASES OR DERABLES [facility] [address] [place] [address] * (ABNORMAL) BLOOD GASES CORD ARTERIAL (01/17/2020 [...] AM CDT [facility]P THERAPY Sample Site [facility] 01/17/2020 11:32 AM CDT [facility]P [facility]ERAP[facility] Sample Type Arterial 01/17/2020 11:32 AM CDT [facility] RESP THERAPY [employer] [place] [id number] 01/17/2020 11:32 AM CDT [facility] RESP [facility]ERAP[facility] Notified Who savanna perez 01/17/2020 11:32 AM CDT [facility] RESP THERAPY Notification Time 01/17/2020 11:31 01/17/2020 11:32 AM CDT [facility] RESP THERAPY Notified By rob engle 01/17/2020 11:32 AM CDT [facility] RESP THERAPY Blood, arterial CORD BLOOD SPECIMEN / Unknown 01/17/2020 11:24 AM CDT 01/17/2020 11:24 AM CDT Lavinia Hunt MD LAB - BLOOD GASES OR DERABLES Performing Organization Address City/State/[facility] Co de Phone Number [facility] RESP THERAPY [address] [place] [address] * Neuraxial Block (01/17/2020 10:34 AM CDT) [...] AM CDT) Unit Description AS1 LR PRBC [facility] BLOOD BANK LAB Unit ABO B [facility] BLOOD BANK LAB Unit Rh POS [facility] BLOOD BANK LAB Product Number R02 [facility] BLOOD BANK LAB Unit Donor # [id number] [facility] BLOOD BANK LAB Unit Status released [facility] OD BANK LAB Product Code [id number] [facility] BL OOD BANK LAB Blood Type Barcode 7300 [facility] BLOOD BANK LAB Expiration Date S [facility] BLOOD BANK LAB Unit Description AS1 LR PRBC [facility] BLOOD BANK LAB Unit ABO B [facility] BLOOD [facility]ANK LAB Unit Rh POS [facility] BLOOD BANK LAB Product Number R02 [facility] BLOOD BANK LAB Unit Donor # [id number] [facility] BLOOD BANK LAB Unit Status released [facility] OD BANK LAB Product Code [id number] [facility] BL OOD BANK LAB Blood Type Barcode 7300 [facility] BLOOD BANK LAB Expiration Date S [facility] BLOOD BANK LAB Blood Bank BLOOD SPECIMEN / Unknown 01/17/2020 8:53 AM CDT 01/17/2020 8:58 AM CDT Maxx Hernandez MD LAB - BLOOD BANK ORD ERABLES [facility] BLOOD BANK LAB [address] [place], [place] [id number] [place] [address] * BLOOD TYPE VERIFICATION (01/17/2020 8:53 AM CDT) Pathologist [facility] ABO Rh B POS 01/17/2020 9:4 9 AM CDT [facility] BLOOD BANK LAB Blood Bank BLOOD SPECIMEN / Unknown Lab Venipuncture / Unknown 01/17/2020 8:53 AM CDT 01/17/2020 9:13 AM CDT Margie Mock MD LAB - BLOOD BANK ORD ERABLES Performing Organization Address City/[facility]/ZIP Co de Phone Number [facility] BLOOD [facility] LAB [address] [place] [address] * TYPE + SCREEN PANEL (01/17/2020 8:53 AM CDT) Only the most recent of4 resultswithin the time period is included. ABO Rh B POS 01/17/2020 9:49 AM CDT [facility] BLOOD BANK LAB Comment:History checked. Antibody Screen NEG 0 9:49 AM CDT [facility] BLOOD [facility] LAB Blood Bank BLOOD SPECIMEN / Unknown Venipuncture / Unknown 01/17/2020 8:53 AM CDT 01/17/2020 8:58 AM CDT Ligia Santana MD LAB - BLOOD BANK ORD ERABLES Performing Organization Address City/[facility] Co de Phone Number [facility] [address] [place] [address] * URINALYSIS - POINT OF CARE (AMB) [facility]U (01/13/2020) Only the most recent of8 resultswithin the time period is included. Specific [place] UA 1.015 pH UA 6 WBC UA n Nitrite UA n Protein UA n Glucose UA n Ketones UA POCT n Urobilinogen UA n Bilirubin UA POCT n Blood Urine POCT n Urine URINE / Unknown 01/13/2020 Samantha Landon INDUSTRIAL DESIGNER-CNM LAB - POIN T OF CARE ORDERABLES * NONSTRESS TEST (12/29/2019 4:44 AM CDT) Narrative Brennen Young MD - 12/29/2019 4:44 AM CDT Brennen Young MD 01/07/2020 12:14 PM Name: Vashana J Jc Date of : 1985 Today's Date: 12/29/2019 36w2d NST RESULTS (OKHLI) OBJECTIVE FINDINGS Temp: 97.4 F (36.3 C), , , BP: 126/77 NST Indication(s): Other (Comment)(weu visit) Uterine Irritability: Yes Contractions: Not present OBJECTIVE FINDINGS Movement: Present Monitoring Mode: External Baseline: 130 BPM Variability: Moderate Decelerations: None Accelerations: Yes OTHER INFORMATION Eneida Avendano RN PGY-1 Addendum NST: baseline 140 bpm, moderate variability, reactive, 2 variable decelerations present, overall reassuring [place]: rare contractions, irritability Carolann Bray MD 12/30/2019 [...] AM CDT 12/29/2019 3:58 AM CDT Narrative [facility] LABORATORY - 12/29/2019 4:17 AM CDT Carolann Bray MD LAB - URINALYSIS OR DERABLES [facility] LABORATORY [address] [place] [address] * CHLAMYDIA + GC AMPLIFIED PROBE (STL) (12/29/2019 3:46 AM CDT) Chlamydia Amplified Probe Negative Negative 12/30/2019 8:48 AM CDT [facility] MICROBIOLOGY GC Amplified Probe Negative Negative 12/30/2019 8:48 AM CDT [facility]CRO[facility]OLOG[facility] Microbiology PART OF UTERINE CERVIX / Unknown Collection / Unknown 12/29/2019 3:46 AM CDT 12/29/2019 3:58 AM CDT Narrative [facility] MICROBIOLOG[facility] - 12/30/2019 8:48 AM CDT Results based on detection/no detection of ribosomal RNA by amplified method. Carolann Bray MD LAB - MICROBIOLOGY ORDERABLES Performing Organization Address [facility] Co de Phone Number [facility] MICROBIOLOGY [address] [place] [address], [facility] [phone] * (ABNORMAL) URINALYSIS REFLEX MICROSCOPIC REFLEX CULTURE (12/29/2019 3:46 AM CDT) Only the most recent of2 resultswithin the time period is included. Color UA Yellow Straw, Yellow 12/29/2019 4:14 AM CDT [facility] LABORATORY Clarity UA Cloudy(A) Clear 12/29/2019 4:14 AM CDT [facility] Glucose UA Negative Negative 12/29/2019 4:14 AM CDT [facility] Bilirubin UA Negative Negative 12/29/2019 4:14 AM CDT [facility] Ketone UA Negative Negative 12/29/2019 4:14 AM CDT [facility] Specific [place] UA 1.018 1.005 - 1.030 12/29/2019 4:14 AM CDT [facility] Blood UA Negative Negative 12/29/2019 4:14 AM CDT [facility] pH UA 6.0 5.0 - 8.0 pH 12/29/2019 4:14 AM CDT [facility] Protein UA 1+(A) Negative 12/29/2019 4:14 AM CDT [facility] Urobilinogen UA 2.0(A) Negative mg/dL 12/29/2019 4:14 AM CDT [facility] Nitrite UA Negative Negative 12/29/2019 4:14 AM CDT [facility] Leukocyte UA Trace(A) Negative 12/29/2019 4:14 AM CDT [facility] Urine Microscopy Urine microscopy to follow 12/29/2019 4:14 AM CDT [facility] Reflex Status Culture to follow 12/29/2019 4:14 AM CDT [facility] Urine URINE SPECIMEN OBTAINED BY CLEAN CATCH PROCEDURE / Unknown Collection / Unknown 12/29/2019 3:46 AM CDT 12/29/2019 3:58 AM CDT Narrative [facility] LABOR[facility] - 12/29/2019 4:14 AM CDT Carolann Bray MD LAB - URINALYSIS OR DERABLES Performing Organization Address City/[facility]/ZIP Co de Phone Number [facility] LABORATORY [address] [place], [place] [id number] * TRICHOMONAS RAPID TEST (12/29/2019 3:46 AM CDT) Only the most recent of3 resultswithin the time period is included. Trichomonas Rapid Test Negative Negative 12/29/2019 4:22 AM CDT [facility] Microbiology VAGINAL SWAB / Unknown Collection / Unknown 12/29/2019 3:46 AM CDT 12/29/2019 3:58 AM CDT Carolann Bray MD LAB - MICROBIOLOGY ORDERABLES Performing Organization Address [facility]/ZIP Co de Phone Number [facility] LABORATORY [address] [place] [address] * CULTURE STREP B (12/22/2019 12:13 PM CDT) Culture [facility] Comment: STREPTOCOCCUS, GROUP B CULTURE Micro Number: [id number] Test Status: Final Specimen Source: VAGINAL/ANORECTAL Specimen Quality: Adequate Result: No group B Streptococcus isolated Note per CDC guidelines optimal recovery is achieved by swabbing both the lower vagina and rectum (through the anal sphincter). Test Performed at: [facility] [id number] [place] [address] JUNIOR FISHER DO,MPH Microbiology MISCELLANEOUS SAMPLES / Unknown 12/22/2019 12:13 PM CDT 12/22/2019 1:11 PM CDT Sanjay Kimbrough MD LAB - MICROBIOLOGY O RDERABLES Performing Organization Address [facility] Co de Phone Number [facility] [address] [place] [address] * MA SONO FU OR REPEAT (12/22/2019 11:44 AM CDT) Narrative Darcy Guardado - 12/22/2019 11:44 AM CDT Darcy Guardado 12/22/2019 11:44 AM Documentation in digisonics Sanjay Kimbrough MD PROCEDURE/MINOR SURG ICAL ORDERABLES * MA DOPPLER VELOCIMETRY ; UMBILICAL ARTERY, MA SONO FU OR REPEAT (11/22/2019 11:55 AMCDT) Narrative Yana, May - 11/22/2019 11:55 AM CDT Yana 11/22/2019 11:56 AM Documentation in [employer]. Sanjay Kimbrough MD PROCEDURE/MINOR SURG ICAL ORDERABLES * RPR W REFLEX TO TITER+CONFIRM (10/21/2019 11:10 AM CDT) RPR NON-REACTI VE NON-REACT [facility] Comment: REPORT COMMENT: FASTING:NO Test Performed at: [place] [address] JUNIOR FISHER DO,MPH Blood BLOOD SPECIMEN / Unknown 10/21/2019 11:10 AM CDT 10/21/2019 11:11 AM CDT Samantha Landon INDUSTRIAL DESIGNER-CNM LAB - CHEM ISTRY ORDERABLES Performing Organization Address [facility] Co de Phone Number [facility] [address] [place] [address] * GTT 1 HR (50G) GESTATIONAL SCREEN (10/21/2019 11:10 AM CDT) Pathologist [facility] Glucose Gestational Screen 89 <140 mg/dL [facility] Comment: Test Performed at: [employer] [facility] [id number] [facility] [place] [address] JUNIOR FISHER DO,MPH Blood BLOOD SPECIMEN / Unknown 10/21/2019 11:10 AM CDT 10/21/2019 11:11 AM CDT Samantha Landon INDUSTRIAL DESIGNER-CNM LAB - CHEM ISTRY ORDERABLES [facility] [address] [place] [address] * (ABNORMAL) PROFILE I W/ HBSAG (06/23/2019 10:39 AM ENERGY EFFICIENCY FINANCE MANAGER) [facility] White Blood Cell Count 8.7 [...] Comment: For additional information, please refer to http://education.[employer]/faq/GBC342 (This link is being provided for informational/ [...] infection with rubella virus. Test Performed at: [facility] [address] [address] JUNIOR FISHER DO,MPH Blood BLOOD SPECIMEN / Unknown 06/23/2019 10:39 AM ENERGY EFFICIENCY FINANCE MANAGER 06/23/2019 10:39 AM ENERGY EFFICIENCY FINANCE MANAGER Samantha Landon APRNBright IndustryERIC LAB - CHEM ISTRY ORDERABLES Performing Organization Address [facility] [place] [address] * HEMOGLOBIN SOLUBILITY REFLX FRAC (06/23/2019 10:39 AM ENERGY EFFICIENCY FINANCE MANAGER) Sickle Cell NEGATIVE NEGATIVE [facility] Comment: Hemoglobin solubility testing alone is insufficient for detecting or confirming the presence of sickling hemoglobins in some situations. Additional testing may be required for diagnosis of hemoglobinopathies. For more information on this test go to: http://education.[employer].Outcome Referrals/faq/CUO75p3 REPORT COMMENT: FASTING:NO Test Performed at: [facility] [address] [address] JUNIOR FISHER DO,MPH Blood BLOOD SPECIMEN / Unknown 06/23/2019 10:39 AM ENERGY EFFICIENCY FINANCE MANAGER 06/23/2019 10:39 AM ENERGY EFFICIENCY FINANCE MANAGER Samantha Landon APRN-CNM LAB - CHEM ISTRY ORDERABLES Performing Organization Address [facility] [place] [address] * MA ULTRASOUND, UTERUS (06/23/2019 9:26 AM ENERGY EFFICIENCY FINANCE MANAGER) Narrative Darcy Guardado - 06/23/2019 9:26 AM ENERGY EFFICIENCY FINANCE MANAGER Darcy Guardado 06/23/2019 9:26 AM Documentation in [facility] Samantha Landon INDUSTRIAL DESIGNER-CNM PROCEDURE/ MINOR SURGICAL ORDERABLES * (ABNORMAL) PAP LB HPV HR DNA (02/10/2019 12:25 PM CDT) Only the most recent of2 resultswithin the time period is included. Diagnosis Comment(A) 02/16/2019 5:07 PM CDT [facility] ([facility]) Comment: EPITHELIAL CELL ABNORMALITY. ATYPICAL SQUAMOUS CELLS, CANNOT EXCLUDE HIGH-GRADE SQUAMOUS INTRAEPITHELIAL LESION (ASC-H). Recommendation Comment(A) 02/16/2019 5:07 PM CDT [facility] ([facility]) Comment:Suggest colposcopy a nd biopsy if indicated. Specimen Adequacy Comment 019 5:07 PM CDT [facility] ([facility]) Comment: Satisfactory for evaluation. Endocervical and/or squamous metaplastic cells (endocervical component) are present. Performed by Comment 02/16/2019 5:07 PM CDT [facility] ([facility]) Comment:Gabriela Richey, Cyto technologist ([facility]) QC Reviewed by Comment 02/16/2019 5:07 PM CDT [facility] ([facility]) Comment:Laura Kramer Cy totechnologist ([facility]) Electronically Signed by Comment 02/16/2019 5:07 PM CDT [facility] ([facility]) Comment:Jessie Fiore MD, Pathologist Comment . 02/16/2019 5:07 PM CDT [facility] ([facility]) Pathologist Provided ICD10 Comment 02/16/2019 5:07 PM CDT [facility] ([facility]) Comment:R87.611 Note Comment 02/16/2019 5:07 PM CDT [facility] ([facility]) Comment: The Pap smear is a screening test designed to aid in the detection of premalignant and malignant conditions of the uterine cervix. It is not a diagnostic procedure and should not be used as the sole means of detecting cervical cancer. Both false-positive and false-negative reports do occur. Human papillomavirus High Risk Positive(A ) Negative 02/16/2019 5:07 PM CDT [facility] ([facility]) Comment: This high-risk HPV test detects thirteen high-risk types (16/18/31/33/35/39/45/51/52/56/58/59/68) without differentiation. Pathology/Cytolo gy PART OF UTERINE CERVIX / Unknown Collection / Unknown 02/10/2019 12:25 PM CDT 02/10/2019 12:48 PM CDT [facility]ative [facility]) - 02/16/2019 5:07 PM CDT Performed at: 01 - [address] [id number] Is Support Analyst: Jessie Fiore MD, Phone: [phone] Performed at: - [address] [id number] Is Support Analyst: Jessie Fiore MD, Phone: [phone] Specimen Comment: Source.............Endocervix Specimen Comment: No. of containers..01 ThinPrep Vial Louise Gardner MD LAB - PATHOLOGY/C YTOLOGY ORDERABLES [facility] ([facility]) [address] [place] [address] * CHLAMYDIA + GC AMPLIFIED PROBE (02/10/2019 12:25 PM CDT) Only the most recent of6 resultswithin the time period is included. Chlamydia Amplified Probe Negative Negative 02/11/2019 10:52 AM CDT [facility] MICROBIOLOG[facility] GC Amplified Probe Negative Negative 02/11/2019 10:52 AM CDT [facility] Other ENTIRE ENDOCERVIX / Unknown Collection / Unknown 02/10/2019 12:25 PM CDT 02/10/2019 12:47 PM CDT Narrative [facility]CRO[facility] - 02/11/2019 10:52 AM CDT Results based on detection/no detection of ribosomal RNA by amplified method. Louise Gardner MD LAB - MICROBIOLOG Y ORDERABLES [facility] MICROBIOLOG[facility] [address] [place] [address], [facility] [phone] * SYPHILIS ANTIBODY CASCADING REFLEX (02/10/2019 12:24 PM CDT) Treponema pallidum Antibody Non Reactive Non Reactive 02/10/2019 4:20 PM CDT [facility] Comment: No Laboratory evidence of syphilis infection. Note: Circulating antibodies may be low or undetectable in early infection. If recent exposure is suspected, re-draw sample in 2-4 weeks and repeat testing. Blood BLOOD SPECIMEN / Unknown Venipuncture / Unknown 02/10/2019 12:24 PM CDT 02/10/2019 3:46 PM CDT Louise Gardner MD LAB - SEROLOGY OR DERABLES Performing Organization Address [facility] Co de Phone Number [facility]OR[facility] [address] [place], [place] [id number] * HEPATITIS B SURFACE ANTIGEN W RFLX CONFIRMATION (02/10/2019 12:24 PM CDT) Only the most recent of2 resultswithin the time period is included. Pathologist [facility] HBsAg Non Reactive Non Reactive 02/10/2019 1:40 PM CDT [facility] Blood BLOOD SPECIMEN / Unknown Venipuncture / Unknown 02/10/2019 12:24 PM CDT 02/10/2019 12:48 PM CDT Louise Gardner MD LAB - CHEMISTRY O RDERABLES Performing Organization Address City/[facility] de Phone Number [facility] [address] [place] [address] * HEPATITIS C ANTIBODY (02/10/2019 12:24 PM CDT) Only the most recent of2 resultswithin the time period is included. Pathologist [facility] HCV Antibody Screen Non Reactive Non Reactive 02/10/2019 1:41 PM CDT [facility] HCV S/C Ratio 0.07 0.00 - 0.79 02/10/2019 1:41 PM CDT [facility] Comment: Txoqth-mg-ewwqgf ratio (S/CO) <0.80: Non Reactive Blood BLOOD SPECIMEN / Unknown Venipuncture / Unknown 02/10/2019 12:24 PM CDT 02/10/2019 12:47 PM CDT Narrative [facility] - 02/10/2019 1:41 PM CDT Non Reactive - Antibodies to Hepatitis C virus (HCV) were not detected, result does not exclude early acute HCV infection. Louise Gardner MD LAB - CHEMISTRY O RDERABLES Performing Organization Address [facility] Co de Phone Number [facility] [address] [place] [address] * HCG URINE QUALITATIVE - POINT OF CARE (02/10/2019 11:20 AM CDT) Only the most recent of7 resultswithin the time period is included. Pathologist [facility] HCG Qual Urine Negative Negative [facility] POCT TESTING QC Verified Yes Yes [facility] POC T TESTING Urine URINE / Unknown 02/10/2019 1 1:20 AM CDT Louise Gardner MD LAB - POINT OF CA RE ORDERABLES Performing Organization Address [facility] de Phone Number [facility] POCT TESTING [address] [place] [address] * RPR (12/31/2017 9:23 AM CDT) Only the most recent of3 resultswithin the time period is included. Pathologist [facility] RPR Non Reactive Non Reactive 01/01/2018 8:52 AM CDT [facility] Blood BLOOD SPECIMEN / Unknown Venipuncture / Unknown 12/31/2017 9:23 AM CDT 12/31/2017 9:39 AM CDT Ernesto Gaona MD LAB - CHEMISTRY ONESIMO HANSON Performing Organization Address [facility] Co de Phone Number [facility] [address] [place] [address] * HEMOGLOBIN A1C (12/31/2017 9:23 AM CDT) Pathologist [facility] Hemoglobin A1c 4.3 4.2 - 6.3 % 12/31/2017 10:57 AM CDT [facility] Estimated Average Glucose 77 mg/dL 12/31/2017 10:57 AM CDT [facility] Whole Blood BLOOD SPECIMEN / Unknown Venipuncture / Unknown 12/31/2017 9:23 AM CDT 12/31/2017 9:39 AM CDT Ernesto Gaona MD LAB - CHEMISTRY ONESIMO HANSON Performing Organization Address City/[facility]/ZIP Co de Phone Number [facility] [address] [place] [address] * TSH (12/31/2017 9:23 AM CDT) TSH 2.24 0.358 - 3.740 uIU/mL 12/31/2017 10:22 AM CDT [facility] Blood BLOOD SPECIMEN / Unknown Venipuncture / Unknown 12/31/2017 9:23 AM CDT 12/31/2017 9:39 AM CDT Ernesto Gaona MD LAB - CHEMISTRY ONESIMO HANSON Performing Organization Address City/[facility]/ZIP Co de Phone Number [facility] [address] [place] [address] * LIPID PROFILE (12/31/2017 9:23 AM CDT) Cholesterol 151 <200 mg/dL 12/31/2017 10:22 AM CDT [facility] Triglycerides 57 <150 mg/dL 12/31/2017 10:22 AM CDT [facility] HDL Cholesterol 66 >40 mg/dL 8 10:22 AM CDT [facility] LDL Calculated 74 <130 mg/dL 12/31/2017 10:22 AM CDT [facility] VLDL Calculated 11 <=30 mg/dL 8 10:22 AM CDT [facility] Chol HDL Ratio 2.3 <4.5 12/31/2017 10:22 AM CDT [facility] LDL/HDL Ratio 1.1 <5.0 12/31/2017 10:22 AM CDT [facility] Blood BLOOD SPECIMEN / Unknown Venipuncture / Unknown 12/31/2017 9:23 AM CDT 12/31/2017 9:39 AM CDT Ernesto Gaona MD LAB - CHEMISTRY ONESIMO HANSON [facility] Organization Address City/State/ZIP Co de Phone Number [facility] [address] [place] [address] * (ABNORMAL) PAP LB RFLX HPV ASCU (12/31/2017 9:22 AM CDT) Diagnosis Comment(A) 01/06/2018 6:10 PM CDT [facility] ([facility]) Comment: EPITHELIAL CELL ABNORMALITY. ATYPICAL SQUAMOUS CELLS OF UNDETERMINED SIGNIFICANCE. Recommendation Comment(A) 01/06/2018 6:10 PM CDT [facility] ([facility]) Comment:Suggest follow up as clinically appropriate. Specimen Adequacy Comment 018 6:10 PM CDT [facility] ([facility]) Comment: Satisfactory for evaluation. Endocervical and/or squamous metaplastic cells (endocervical component) are present. Performed by Comment 01/06/2018 6:10 PM CDT [facility] ([facility]) Comment:Micha Menezes totechnologist Electronically Signed by Comment 01/06/2018 6:10 PM CDT [facility] ([facility]) Comment:Lonny Mata MD, Pa thologist Comment . 01/06/2018 6:10 PM CDT [facility] ([facility]) Pathologist Provided ICD10 Comment 01/06/2018 6:10 PM CDT [facility] ([facility]) Comment:R87.610 Note Comment 01/06/2018 6:10 PM CDT [facility] ([facility]) Comment: The Pap smear is a screening test designed to aid in the detection of premalignant and malignant conditions of the uterine cervix. It is not a diagnostic procedure and should not be used as the sole means of detecting cervical cancer. Both false-positive and false-negative reports do occur. Note Comment 01/06/2018 6:10 PM CDT [facility] ([facility]) Comment:See below for HPV te sting results. Pathology/Cytolo gy PART OF UTERINE CERVIX / Unknown Collection / Unknown 12/31/2017 9:22 AM CDT 12/31/2017 9:41 AM CDT Narrative [facility] ([facility]) - 01/06/2018 6:10 PM CDT Performed at: - [address] [id number] Is Support Analyst: Jessie Fiore MD, Phone: [phone] Specimen Comment: Source.............Cervix;Endocervix Specimen Comment: LMP / Prev Treat...[place] / BX Specimen Comment: No. of containers..01 ThinPrep Vial Ernesto Gaona MD LAB - PATHOLOGY/CYTO LOGY ORDERABLES Performing Organization Address City/[facility]/ZIP Co de Phone Number [facility] ([facility]) [address] [place] [address] * (ABNORMAL) HPV DNA PROBE HIGH RISK (12/31/2017 9:22 AM CDT) Pathologist [facility] Human papillomavirus High Risk Positive( A) Negative 01/06/2018 6:10 PM CDT [facility] ([facility]) Comment: This high-risk HPV test detects thirteen high-risk types (16/18/31/33/35/39/45/51/52/56/58/59/68) without differentiation. Pathology/Cytolo gy PART OF UTERINE CERVIX / Unknown Collection / Unknown 12/31/2017 9:22 AM CDT 12/31/2017 9:41 AM CDT [facility] ([facility]) - 01/06/2018 6:10 PM CDT Performed at: [address] [id number] Is Support Analyst: Jessie Fiore MD, Phone: [phone] Ernesto Gaona MD LAB - MICROBIOLOGY O RDERABLES Performing Organization Address City/[facility]/ZIP Co de Phone Number [facility] ([facility]) [address] [place] [address] * HEPATITIS SCREEN ACUTE (09/11/2015 2:16 PM CDT) Only the most recent of2 resultswithin the time period is included. Pathologist [facility] HAV Antibody IgM Non Reactive Non Reactive 09/11/2015 4:11 PM CDT [facility] HBsAg Non Reactive Non Reactive 09/11/2015 4:11 PM CDT [facility] HBc Antibody IgM Non Reactive Non Reactive 09/11/2015 4:11 PM CDT [facility] HCV Antibody Screen Non Reactive Non Reactive 09/11/2015 4:11 PM CDT [facility] HCV S/C Ratio 0.05 0.00 - 0.79 09/11/2015 4:11 PM CDT [facility] Comment: Sopklf-yz-axztno ratio (S/CO) <0.80: Non Reactive Blood BLOOD SPECIMEN / Unknown Venipuncture / Unknown 09/11/2015 2:16 PM CDT 09/11/2015 2:53 PM CDT Narrative [facility] - 09/11/2015 4:11 PM CDT Non Reactive - Antibodies to Hepatitis C virus (HCV) were not detected, result does not exclude early acute HCV infection. Non Reactive - Antibodies to Hepatitis C virus (HCV) were not detected, result does not exclude early acute HCV infection. Yanely Billy MD LAB - CHEMISTRY ONESIMO HANSON Performing Organization Address [facility] de Phone Number [facility] [address] [place] [address] * CYTOLOGY CERVICAL/VAG THIN PREP+HPV (08/22/2014 4:40 PM CDT) Pathologist [facility] ThinPrep Pap See Scanned Report 09/05/2014 7:48 AM CDT [facility] NON INTERF Miscellaneous samples (specimen) ENTIRE ENDOCERVIX / Unknown Collection / Unknown 08/22/2014 4:40 PM CDT 08/23/2014 7:06 AM CDT Naina Forman MD LAB - PATHOLOGY/C YTOLOGY ORDERABLES Performing Organization Address [facility] de Phone Number [facility] REF [facility] NON INTERF [address] [place] [address] * GROSS + MICRO EXAM (STL) (09/23/2012 10:00 AM CDT) Case Report Surgical Pathology Report Case: [id number] -------- Authorizing Provider: Charlie Burks MD Ordering Provider: Charlie Burks MD Ordering Location: [facility]ER[facility]/ Collected: 09/23/2012 10:00 AM EVALUATION UNIT Pathologist: Ananda Horne MD Received: 09/23/2012 2:52 PM Signed Out: 09/24/2012 2:38 PM (Final) Specimen: Endocervix Curettings 09/24/2012 2:38 PM CDT [facility] Final Diagnosis 1. Endocervix, curettage: -- No pathologic diagnosis /na 09/24/2012 2:38 PM CDT [facility] Gross Description The specimen is labeled Jc, Vashana and ECC . It is received in formalin. It consists of a 0.7 x 0.5 cm aggregate of red-zendejas bloody mucoid material submitted entirely in a single cassette. LL/lma 09/24/2012 2:38 PM CDT [facility] Microscopic Description Sections reveal mucus and benign endocervical glandular epithelium. No dysplasia or malignancy is seen. /na 09/24/2012 2:38 PM CDT [facility] Synoptic Report 3 2:38 PM CDT [facility] Miscellaneous samples (specimen) CURETTINGS / Unknown 09/23/2012 10:00 AM CDT 09/23/2012 2:52 PM CDT Charlie Burks MD LAB - PATHOLOGY/CYTO LOGY ORDERABLES [facility] [address] [place] [address] * CARDIAC RHYTHM STRIP ORDER (08/20/2012 1:51 PM CDT) Narrative 08/20/2012 1:51 PM CDT Procedure Note Document, Scanned - 08/20/2012 1:51 PM CDT Scanned Document CARDIAC SERVICES ORD ERABLES * CULTURE TISSUE+GRAM STAIN (08/12/2012 3:40 PM CDT) Culture No Growth 08/15/2012 2:14 PM CDT [facility] Gram Stain Heavy Red blood cells 08/15/2012 2:14 PM CDT [facility] Gram Stain Light White blood cells 08/15/2012 2:14 PM CDT [facility] Gram Stain No organisms seen 08/15/2012 2:14 PM CDT [facility] Miscellaneous samples (specimen) CYST OF [place] DUCT / Unknown 08/12/2012 3:40 PM CDT 08/12/2012 4:00 PM CDT Brennen Young MD LAB - MICROBIOLOGY O RENETTA Performing Organization Address [facility] Co de Phone Number [facility] [address] [place] [address], [facility] * CULTURE ANAEROBE (08/12/2012 3:40 PM CDT) Culture No anaerobic organisms isolated 08/21/2012 1:01 PM CDT [facility] Miscellaneous samples (specimen) CYST OF [place] DU[place] / Unknown 08/12/2012 3:40 PM CDT 08/12/2012 4:00 PM CDT Brennen Young MD LAB - MICROBIOLOGY O RNEETTA Performing Organization Address [facility] Co de Phone Number [facility] [address] [place] [address], [facility] * LAB HISTORICAL RESULTS-ONBASE (08/12/2012) Only the most recent of4 resultswithin the time period is included. 08/12/2012 Narrative [facility] - 08/24/2012 8:54 AM CDT Historical Provider LAB - CHEMISTRY O RENETTA Performing Organization Address [facility] Co de Phone Number [facility] [address] [place] [address], [facility] * (ABNORMAL) CBC W/O DIFFERENTIAL (08/07/2012 10:56 AM CDT) Pathologist [facility] WBC 5.3 4.4 - 10.7 x10^9/L 08/07/2012 11:12 AM CDT [facility] RBC 4.32 3.80 - 5.20 x10^12/L 08/07/2012 11:12 AM CDT [facility] Hemoglobin 9.4(L) 12.0 - 15.6 g/dL 08/07/2012 11:12 AM CDT [facility] Hematocrit 29.3(L) 35.9 - 45.5 % 08/07/2012 11:12 AM CDT [facility] MCV 67.8(L) 80.7 - 98.3 fl 08/07/2012 11:12 AM CDT [facility] MCH 21.8(L) 26.7 - 34.0 pg 08/07/2012 11:12 AM CDT [facility] MCHC 32.1 30.8 - 35.9 gm/dL 08/07/2012 11:12 AM CDT [facility] Platelet Count 232 153 - 416 x10^9/L 08/07/2012 11:12 AM [facility] RDW-CV 14.4 12.1 - 14.9 % 08/07/2012 11:12 [facility] MPV 10.8 9.4 - 12.9 fl 08/07/2012 11:12 AM CDT [facility] Blood specimen (specimen) BLOOD SPECIMEN / Unknown 08/07/2012 10:56 AM CDT 08/07/2012 11:03 AM CDT Brennen Young MD LAB - HEMATOLOGY ORD ERABLES Performing Organization Address City/State/[facility] Co de Phone Number [facility] [address] [place] [address] * CYTOLOGY CERVICAL/VAG SCREEN THIN PREP (06/17/2012 2:59 PM ENERGY EFFICIENCY FINANCE MANAGER) Pathologist [facility] ThinPrep Pap See Scanned Report (none) 06/30/2012 2:52 PM ENERGY EFFICIENCY FINANCE MANAGER [facility] Miscellaneous samples (specimen) ENTIRE ENDOCERVIX / Unknown 06/17/2012 2:59 PM ENERGY EFFICIENCY FINANCE MANAGER 06/17/2012 5:34 PM ENERGY EFFICIENCY FINANCE MANAGER Padmini Gastelum MD LAB - PATHOLOGY/CYTO LOGY ORDERABLES Performing Organization Address [facility] Co de Phone Number [facility] [address] [place] [address] * CYTOLOGY CERVICAL/VAG DIAG THIN PREP (01/10/2010 12:25 PM CDT) Comment Thin Prep [facility] Pap Smear Report See Scanned Report [facility] MICROSCOPIC CYTOLOGIC EXAMINATION OF SMEAR OF SPECIMEN FROM FEMALE GENITAL TRACT PREPARED USING PAPANICOLAOU TECHNIQUE / Unknown 01/10/2010 12:25 PM CDT 01/10/2010 3:06 PM CDT Narrative Resulting Agency Comment Performed By [facility]() [address] [place], [place] [address] Annabella Claros MD LAB - PATHOLOGY/CYTO LOGY ORDERABLES Performing Organization Address [facility] Co de Phone Number [facility] [address] [place] [address] * CULTURE WOUND (06/28/2009 9:12 PM ENERGY EFFICIENCY FINANCE MANAGER) Report [facility] Comment: Final - GRAM STAIN Heavy WBC's Heavy gram negative bacilli Moderate gram positive cocci Light gram positive bacilli CULTURE Light Other mixed aerobic cyhna present ESCHERICHIA COLI Rare Ampicillin NANCY Sensitive<=0.25 Cefazolin NANCY Sensitive <=8 Ciprofloxacin NANCY Sensitive <=0.5 Gentamicin NANCY Sensitive <=0.5 Levofloxacin NANCY Sensitive <=1 Pip/Tazobactam NANCY Sensitive <=8 Trimethoprim/Sulfamethoxazole NANCY Sensitive <=10 COAG NEGATIVE STAPHYLOCOCCUS Light Probable skin chyna contaminant. DIPHTHEROIDS Moderate Probable skin chyna contaminant. CYST OF [place] DUCT / Unknown 06/28/2009 9:12 PM ENERGY EFFICIENCY FINANCE MANAGER 06/28/2009 9:13 PM ENERGY EFFICIENCY FINANCE MANAGER Narrative [facility] - 06/30/2009 1:46 PM ENERGY EFFICIENCY FINANCE MANAGER Bartholin cyst Andi Nunes PA-C LAB - MICROBIOLOGY O RDERABLES Performing Organization Address City/[facility]/ZIP Co de Phone Number [facility] [address] [place] [address] * APHERESIS/TRANSFUSION ORDER (04/27/2009 9:46 AM ENERGY EFFICIENCY FINANCE MANAGER) Narrative 04/27/2009 9:46 AM ENERGY EFFICIENCY FINANCE MANAGER Ordered by an unspecified provider. Transcriptions Document, Scanned - 04/20/2009 12:00 AM ENERGY EFFICIENCY FINANCE MANAGER Scanned Document NURSING - VITAL SIGN S AND ASSESSMENT * TYPE SCRN XMATCH RBC X2 (04/20/2009 6:24 PM ENERGY EFFICIENCY FINANCE MANAGER) Only the most recent of4 resultswithin the time period is included. Number of Units 2 [facility] BLOOD SPECIMEN / Unknown 04/20/2009 6:24 PM ENERGY EFFICIENCY FINANCE MANAGER 04/20/2009 6:24 PM ENERGY EFFICIENCY FINANCE MANAGER Yoli Hawley MD LAB - BLOOD BANK ORD ERABLES Performing Organization Address [facility] Co de Phone Number [facility] [address] [place] [address] * GLUCOSE PROTEIN KETONE URINE - POINT OF CAR (04/20/2009 3:40 PM ENERGY EFFICIENCY FINANCE MANAGER) Only the most recent of2 resultswithin the time period is included. Glucose UA neg Negative [facility] Protein UA neg Negative [facility] Ketone UA neg Negative [facility] QC Verified Yes [facility] POC T TESTING Urine specimen (specimen) URINE / Unknown 04/20/2009 3:40 PM ENERGY EFFICIENCY FINANCE MANAGER Ten Morrow MD LAB - POINT OF CARE ORDERABLES Performing Organization Address [facility] Co de Phone Number [facility] [address] * URINALYSIS OBSTETRICS - POINT OF CARE (04/11/2009 2:50 AM ENERGY EFFICIENCY FINANCE MANAGER) Glucose UA negative Negative [facility] Bilirubin UA Negative [facility] PO [facility] TESTING Ketone UA negative Negative [facility] Specific [place] UA POCT 1.000 - 1.030 [facility] POCT [...] (specimen) URINE / Unknown 04/11/2009 2:50 AM ENERGY EFFICIENCY FINANCE MANAGER Ten Morrow MD LAB - POINT OF CARE ORDERABLES Performing Organization Address [facility] Co de Phone Number [place] [address] * LS RATIO FLUID (03/31/2009 12:43 PM ENERGY EFFICIENCY FINANCE MANAGER) L/S Ratio 1.6 SEE BELOW [facility] Comment: Immature <=1.5 Transitional 1.6-1.9 Mature >=2.0 Color Fluid Straw [facility] Character Amnio Moderately Cloudy [facility] Gestational Age 33.5 weeks by 13-14 week ultrasound [facility] Volume Amnio 5 mls ml [facility] Comment Volume: Please interpret with caution due to possible interference from red blood cells.May cause erronous results. [facility] Interpretation L/S Ratio [facility] Comment: PLEASE NOTE - L/S Ratio [...] FLUID SPECIMEN / Unknown 03/31/2009 12:43 PM ENERGY EFFICIENCY FINANCE MANAGER 03/31/2009 12:43 PM ENERGY EFFICIENCY FINANCE MANAGER Jsoe Chappell MD LAB - BODY FLUID ORD ERABLES Performing Organization Address City/[facility]/ZIP Co de Phone Number [facility] [address] [place] [address] * LUNG MATURITY (03/31/2009 12:43 PM ENERGY EFFICIENCY FINANCE MANAGER) FLM 33.40 SEE BELOW mg/g [facility] Comment: See Interpretation for Normals Color Fluid Straw [facility] Character Amnio Moderately Cloudy [facility] Gestational Age 33.5 by 13-14 week ultrasoun [facility] Volume Amnio 5 ml [facility] Comment Volume: interpret with caution due to red cells [facility] Interpretation FLM [facility] Comment: FLM Immature ......... <= 39 mg/g Mature ......... >= 55 mg/g Results between 40 and 54 cannot be declared mature or immature and should be evaluated with caution. AMNIOTIC FLUID SPECIMEN / Unknown 03/31/2009 12:43 PM ENERGY EFFICIENCY FINANCE MANAGER 03/31/2009 12:43 PM ENERGY EFFICIENCY FINANCE MANAGER Jose Chappell MD LAB - BODY FLUID ORD ERABLES Performing Organization Address City/[facility] Co de Phone Number [facility] [address] [place] [address] * LAB MISC TEST (03/31/2009 10:53 AM ENERGY EFFICIENCY FINANCE MANAGER) Test Name GGT on Cyst Fluid [facility] Test Result Select V to view report [facility] Comment: GGT - 222 [facility] does not recommend running this assay on body fluids. There are no established Reference ranges for body fluids. CYST FLUID SPECIMEN / Unknown 03/31/2009 10:53 AM ENERGY EFFICIENCY FINANCE MANAGER 03/31/2009 12:44 PM ENERGY EFFICIENCY FINANCE MANAGER Narrative [facility] - 03/31/2009 1:46 PM ENERGY EFFICIENCY FINANCE MANAGER just rec in lab Jose Chappell MD LAB SEND OUT Performing Organization Address City/[facility] Co de Phone Number [facility] [address] [place] [address] * CYTOLOGY NON-JAVA LEAD PANEL (03/31/2009 10:53 AM ENERGY EFFICIENCY FINANCE MANAGER) Only the most recent of4 resultswithin the [...] <1> Pathologist Lin Strauss M.D. CPT code 59236 Gross Description Cloudy MISCELLANEOUS SAMPLES / Unknown 03/31/2009 10:53 AM ENERGY EFFICIENCY FINANCE MANAGER 03/31/2009 2:48 PM ENERGY EFFICIENCY FINANCE MANAGER Historical Provider MD LAB - PATHOLOGY/C YTOLOGY ORDERABLES * GROSS + MICRO EXAM (03/31/2009 10:53 AM ENERGY EFFICIENCY FINANCE MANAGER) Only the most recent of2 resultswithin the [...] exudate -- Negative for malignant cells SR/dc Milk Vendor DC Pathologist Fabio Glover M.D. Snomed. 04/01/2009 0936 <2> CPT code 94651 x2 MISCELLANEOUS SAMPLES / Unknown 03/31/2009 10:53 AM ENERGY EFFICIENCY FINANCE MANAGER 03/31/2009 3:12 PM ENERGY EFFICIENCY FINANCE MANAGER Historical Provider LAB - PATHOLOGY/C YTOLOGY ORDERABLES * AMYLASE FLUID (03/31/2009 10:53 AM ENERGY EFFICIENCY FINANCE MANAGER) Amylase Fluid < 30 IU/L [facility] Fluid Type cyst fluid [facility] CYST FLUID SPECIMEN / Unknown 03/31/2009 10:53 AM ENERGY EFFICIENCY FINANCE MANAGER 03/31/2009 12:44 PM ENERGY EFFICIENCY FINANCE MANAGER Narrative [facility] - 03/31/2009 1:36 PM ENERGY EFFICIENCY FINANCE MANAGER just rec in alb Stephan Gardner MD LAB - BODY FLUID ORD ERABLES Performing Organization Address [facility] Co de Phone Number [facility] [address] [place] [address] * TYPE SCRN XMATCH RBC X1 (03/31/2009 6:05 AM ENERGY EFFICIENCY FINANCE MANAGER) Number of Units 1 [facility] BLOOD SPECIMEN / Unknown 03/31/2009 6:05 AM ENERGY EFFICIENCY FINANCE MANAGER 03/31/2009 7:29 AM ENERGY EFFICIENCY FINANCE MANAGER Shanna Hilton MD LAB - BLOOD BANK OR DERABLES Performing Organization Address [facility] Co de Phone Number [facility] [address] [place] [address] * SONOGRAM - COMPLETE (04/06/2008) Anatomical Region Laterality Modality Other Julito Boone MD [facility] ORDERABLES Care Teams Technology Coordinator Relationship Specialty Start Date End Date Morena Schroeder, INDUSTRIAL DESIGNER-RESIN FILTERER [address] [place] [id number] PCP - General 06/23/19
--- OUTSIDE RECORDS SUMMARY | 2024-06-25 10:04 | XMS_ITS | Clinical Summary ---
Author Organization [facility] Address [address] [place] [address] Care Team Providers Care Vessel Liner Name Role Phone Morena Schroeder MAINTENANCE SHOP TECHNICIAN-PROJECT MANAGEMENT MANAGER Primary Care Provider Source Comments [facility],non-owned Affiliates and Associated Physician Practices is amultiple site organization consisting of ambulatory clinics and hospital sitesin [place], [place], [place] and [place]. This disclosure is being madepursuant to the Care Everywhere program and may not contain all information available regarding this patient. Last updated 18.[employer] Allergies No known active allergies Medications Be aware that medications may not be up to date on this document. Always verify current medications with the patient. No known medications Active Problems Patient Care Coordination No te Formatting of this note migh t be different from the original. [id number] Problem Noted Date Diagnosed Date Obesity, Class [...] Dating: LMP=9 week US H/H/Plt: Hgb Elec: @massiel(2091)@ Genetic screening or testing: Pap: 01/2019 [facility]-H/ [...] CDT Office Visit [facility] - MARINE ENGINE MACHINIST [address] [place] [address] Yarelis Arauz, MAINTENANCE SHOP TECHNICIAN-PRESTON [address] [place] [address] Health Maintenance Due Date Last [...] A) Not detected 09/03/2023 6:07 AM CDT [facility] High Risk Human Papilloma Interp 09/03/2023 6:07 AM CDT [facility] Comment:High Risk Human Yonatan lloma Virus - Detected Pathology/Cytolo gy MISCELLANEOUS SAMPLES / Unknown 08/27/2023 3:57 PM CDT 08/28/2023 11:46 AM CDT Narrative [facility] - 09/03/2023 6:07 AM CDT [...] (cytology, histology, and clinical information). Yarelis Arauz [facility] - MICROBIOLOGY ORDERABLES [facility] [address] [place] [address], [facility] [phone] * HIV-1 HIV-2 ANTIBODY + HIV P24 [...] purpose. For additional information please refer to http://education.Kuotus.Comuto/faq/CWA470 (This link is being provided for informational/ educational purposes only.) The performance of this assay has not been clinically validated in patients less than 2 years old. Test Performed at: [facility] [address] [place] [address] RAZA HARDIN MD Blood BLOOD SPECIMEN / Unknown 08/27/2023 08/27/2023 2:57 PM CDT Yarelis Arauz APRN-PROJECT MANAGEMENT MANAGER LAB - CHEMISTRY OR DERABLES Performing Organization Address [facility] de Phone Number [facility] [address] [place] [address] * HEPATITIS C ANTIBODY (02/10/2019 12:24 PM CDT) HCV Antibody Screen Non Reactive Non Reactive 02/10/2019 1:41 PM CDT [facility] HCV S/C Ratio 0.07 0.00 - 0.79 02/10/2019 1:41 PM CDT [facility] Comment: Rzznoe-bb-utdjbg ratio (S/CO) <0.80: Non Reactive Blood BLOOD SPECIMEN / Unknown Venipuncture / Unknown 02/10/2019 12:24 PM CDT 02/10/2019 12:47 PM CDT Narrative [facility] - 02/10/2019 1:41 PM CDT Non Reactive - Antibodies to Hepatitis C virus (HCV) were not detected, result does not exclude early acute HCV infection. Louise Gardner MD LAB - CHEMISTRY O RDERABLES Performing Organization Address [facility] de Phone Number [facility] [address] [place] [address] from Last 3 Months or Most Recently [...] 9:45 AM 04/01/2009 5:37 AM Care Teams Vessel Liner Relationship Specialty Start Date End Date Morena Schroeder APRN-PROJECT MANAGEMENT MANAGER [address] [place] [id number] PCP - General 06/23/19
--- OUTSIDE RECORDS SUMMARY | 2024-06-25 10:04 | XMS_ITS | Clinical Summary ---
Author Organization [facility] Address [address] [place] [address] Care Team Providers Care Gis Analyst Name Role Phone Morena Schroeder Primary Care Provider [phone] Allergies No known active allergies Medications No [...] Comments Blood Pressure 117/80 06/16/2019 9:00 AM MAGENTO DEVELOPER Pulse 77 06/16/2019 9:00 AM MAGENTO DEVELOPER Temperature 36.7 C (98 F) 06/16/2019 9:00 AM MAGENTO DEVELOPER Respiratory Rate 16 06/16/2019 9:00 AM MAGENTO DEVELOPER Oxygen Saturation 100% 06/16/2019 9:00 AM MAGENTO DEVELOPER Inhaled Oxygen Concentration - - Weight 111.1 kg (245 lb) 06/16/2019 9:00 AM MAGENTO DEVELOPER Height 170.2 cm (5' 7 ) 06/16/2019 9:00 AM MAGENTO DEVELOPER Body Mass Index 38.37 06/16/2019 9:00 AM MAGENTO DEVELOPER Plan of Treatment Health Maintenance Due Date Last Done Comments Cervical Cancer Screening Pap Smear (Age 30 to 64) Every 3 Years 1987 Annual Physical 12/23/1990 PHQ-2 (Physician [place]) 1999 Hepatitis C 12/23/2005 DTaP, Tdap and [...] 2024 Influenza Adult (#1) 2024 PHQ-2 (Physician [place]) 05/19/2024 RSV Immunization or 60+ Years (1 [...] patient's age to complete this topic Insurance [facility] Care Teams Gis Analyst Relationship Specialty Start Date End Date Morena Schroeder APNP [address] [place] [address] [id number] PCP - General NURSE PRACTITIONER 06/16/19
[2024-06-25] MEDS: IBUPROFEN 400 MG TABLET 800 MG PO (10:05)
[2024-06-25] MEDS: ACETAMINOPHEN 500 MG TABLET 1000 MG PO (10:06)
[2024-06-25 10:29] VITALS: BP 150/74; PULSE 95; RESP 20; TEMP 38.9; O2SAT 100
== END 2024-06-25 10:29 | disposition home or self-care (01) ==
PROVIDERS: Emergency Medicine; Emergency Provider Physician Assistant; PCP Registered Nurse
DX: U07.1 COVID-19 (principal); Z87.440 Personal history of urinary (tract) infections
CPT/HCPCS: 87637; 99283; A9270

== ENCOUNTER 2024-08-01 19:42 | Emergency (ER) | payer OTHER, SELFPAY ==
[2024-08-01 19:46] VITALS: BP 147/89; PULSE 84; RESP 18; TEMP 36.5; O2SAT 99
--- NOTE | 2024-08-01 19:57 | ED.EYEPROB ---
HPI - Eye Problem General Chief complaint: Eye Problems Stated complaint: Left Eye Irritation Time Seen by Provider: 08/01/24 19:45 Source: patient Mode of arrival: ambulatory Limitations: no limitations History of Present Illness HPI Narrative: 38 yo F presents with c/o L eye drainage, redness, swelling and irritation for 12 hrs. denies injury. Noticed drainage first and then irritation and swelling became progressively worse. Similar symptoms Apr 2023. Abx drops so did not want to use them. Pharmacist told her to try allergy eye drops. Tried Naphcon with no change in symptoms. all systems reviewed and negative except as noted above. Related Data Allergies Allergy/AdvReac Type Severity Reaction Status Date / Time No Known Allergies Allergy Verified 08/01/24 19:45 Review of Systems Review of Systems: CONSTITUTIONAL: Denies fever, chills, or sweats. EYES: Denies visual changes Reports left eye redness swelling and discharge discharge. ENT: Denies rhinorrhea, congestion, sore throat, or otalgia. CARDIOVASCULAR: Denies chest pain, palpitations, or edema. RESPIRATORY: Denies cough or dyspnea. GASTROINTESTINAL: Denies abdominal pain, nausea, vomiting, or diarrhea. GENITOURINARY: Denies dysuria or hematuria. SKIN: Denies rash or itching. MUSCULOSKELETAL: Denies back pain, joint pain, or myalgia. NEUROLOGIC: Denies headache, numbness, or weakness. PSYCHIATRIC: Denies anxiety or depression. All other systems reviewed are negative, except as documented in HPI. [facility] Past Medical History Medical History UTI (urinary tract infection) Chlamydia Surgical History Surgical History History of section History of tonsillectomy Social History Social History Smoking status: Never smoker Second hand tobacco smoke exposure: No Alcohol intake: current Substance use: current Substance use type: does not use Spiritual care concerns: No Comments At time of signature, agree with nursing past medical, surgical, social and family history. There is no relevant family history pertinent to the presenting complaint. Exam Narrative: GENERAL: This is a well-nourished, well-developed patient, in no apparent distress. HEAD: normocephalic, atraumatic. EYES: PERRL. Sclera and conjunctiva L eye erythematous. mild swelling to upper eyelid without concerns of hordeolum. drainage is thin but yellow. R eye clear/white. Vision is grossly intact. EARS: External ears normal NOSE: External nose normal NECK: Neck supple, non-tender without lymphadenopathy, masses or thyromegaly. CARDIOVASCULAR: Regular rate and rhythm without murmurs, gallops, or rubs. RESPIRATORY: Clear to auscultation. Breath sounds equal bilaterally. No wheezes, rales, or rhonchi. SKIN: warm, Dry, intact with no suspicious lesions or rash, good texture and turgor. NEURO: awake, alert, and oriented to person, place and time. There were no obvious focal neurologic abnormalities. EXTREMITIES: No joint tenderness, effusion, or edema noted. Course Course Level of Care: Express Care Visit Vital Signs Vital signs: Vital Signs Temperature 36.5 C 08/01/24 19:46 Pulse Rate 84 08/01/24 19:46 Respiratory Rate 18 08/01/24 19:46 Blood Pressure 147/89 H 08/01/24 19:46 Pulse Oximetry 99 08/01/24 19:46 Oxygen Delivery Room Air 08/01/24 19:46 Temperature 36.5 C 08/01/24 19:46 Pulse Rate 84 08/01/24 19:46 Respiratory Rate 18 08/01/24 19:46 Blood Pressure 147/89 H 08/01/24 19:46 Pulse Oximetry 99 08/01/24 19:46 Oxygen Delivery Room Air 08/01/24 19:46 reviewed MDM - Eye Problem MDM Narrative Medical decision making narrative: will treat with antibiotic eyedrop for bacterial conjunctivitis. Recommend follow up with document processing specialist Please be advised this is a medical document. It is intended for [id number] communication. It is written in medical language and may contain unfamiliar abbreviations or verbiage. Medical documents are intended to carry relevant information, facts as evident, and the clinical opinion of the practitioner at the time of the encounter. This report may have been done utilizing a voice recognition system. Attempts have been made to correct errors. However, there may be uncorrected grammatical, spelling, and recognition errors present. The file time of this note does not necessarily represent the time of service. Discharge Plan Discharge Clinical Impression: Acute bacterial conjunctivitis of left eye Patient Disposition: Home, Self-Care Condition: Stable Instructions: Antibiotic Form, Conjunctivitis (ED) Additional Instructions: Place antibiotic drops as prescribed while awake. Follow up with an document processing specialist at next available appointment. If you have severe pain or vision change go to the ER. Patient Language: Emirati Prescriptions: New ofloxacin 0.3 % drops See Rx Instructions .ROUTE .COMPLEX Qty: 10 0RF Rx Instructions: put 1-2 drps into affected eye(s) every 2-4 h x 2 days, then 1-2 drps 4 times/day days 3-7 No Action valacyclovir [Valtrex] 1 gram tablet 2,000 mg PO Q12H Qty: 4 0RF Follow-up/Referrals: Elda,SIL Berg [Primary Care Provider] - Stand Alone Forms: Work/School Release IP Time of Disposition: 19:55
== END 2024-08-01 19:58 | disposition home or self-care (01) ==
PROVIDERS: Emergency Provider Nurse Practitioner Family; PCP Registered Nurse
DX: H10.32 Unspecified acute conjunctivitis, left eye (principal)
CPT/HCPCS: 99213; G0463

== ENCOUNTER 2024-12-31 15:07 | Emergency (ER) | payer OTHER, SELFPAY ==
[2024-12-31 15:25] VITALS: BP 136/78; PULSE 83; RESP 16; TEMP 36.6; O2SAT 98
--- NOTE | 2024-12-31 15:29 | ED.SKABFB ---
HPI - Skin/Abscess/Foreign Bdy General Chief complaint: Extremity Injury, Upper Stated complaint: Left Hand Finger Pain Time Seen by Provider: 12/31/24 15:28 Source: patient and RN notes reviewed Mode of arrival: ambulatory Limitations: dementia History of Present Illness HPI narrative: 39-year-old female presents concern for pain, swelling, discoloration around the nail bed of the 3rd digit of the left hand. Reports symptoms started 2 weeks ago after she had her nails done. She denies drainage. MD complaint: other (Redness) Related Data Allergies Allergy/AdvReac Type Severity Reaction Status Date / Time No Known Allergies Allergy Verified 12/31/24 15:30 Review of Systems Review of Systems: CONSTITUTIONAL: Denies malaise, chills, sweats, or fever. EYES: Denies redness, or discharge. ENT: Denies rhinorrhea, congestion, swollen lips, swollen tongue CARDIOVASCULAR: Denies chest pain, palpitations, or edema. RESPIRATORY: Denies cough or dyspnea. GASTROINTESTINAL: Denies abdominal pain, nausea, vomiting SKIN: Reports redness, swelling, tenderness around the nail bed of the 3rd digit of the left hand. Denies purulent drainage, vesicles, bullae, numbness, pain beyond proportion MUSCULOSKELETAL: Denies joint pain or myalgia. NEUROLOGIC: Denies headache. All systems reviewed & are unremarkable except as noted in HPI and below PMFSH Past Medical History Medical History UTI (urinary tract infection) Chlamydia Surgical History Surgical History History of section History of tonsillectomy Social History Social History Smoking status: Never smoker Second hand tobacco smoke exposure: No Alcohol intake: current Substance use: current Substance use type: does not use Spiritual care concerns: No Comments At time of signature, agree with nursing past medical, surgical, social and family history. There is no relevant family history pertinent to the presenting complaint Exam Narrative: GENERAL: Well-appearing, well-nourished, and in no acute distress. HEAD: Normocephalic, atraumatic. EYES: PERRLA, conjunctivae clear ENT: Mucous membranes moist. NECK: Supple. No lymphadenopathy CHEST: Clear to auscultation. No respiratory distress. HEART: Regular rate and rhythm. SKIN: Warm, dry. Erythema, induration, tenderness, warmth with sharp margins with pinpoint white jada surrounding the nail bed of the 3rd digit of the left hand, no fluctuation. No vesicles, bullae, necrosis, ecchymosis, crepitus noted. NEURO: Alert and oriented x3. PSYCH: Normal mood and affect Course Course Emergency Course: Patient is aware of diagnosis, understands and agrees to treatment plan. Anticipatory guidance given. Patient agrees to follow-up as directed and is aware of reasons to seek care at the emergency department. Portions of this record may have been created with voice recognition software Level of Care: Express Care Visit Vital Signs Vital signs: Vital Signs Temperature 97.8 F 12/31/24 15:25 Pulse Rate 83 12/31/24 15:25 Respiratory Rate 16 12/31/24 15:25 Blood Pressure 136/78 12/31/24 15:25 Pulse Oximetry 98 12/31/24 15:25 Oxygen Delivery Room Air 12/31/24 15:25 Temperature 97.8 F 12/31/24 15:25 Pulse Rate 83 12/31/24 15:25 Respiratory Rate 16 12/31/24 15:25 Blood Pressure 136/78 12/31/24 15:25 Pulse Oximetry 98 12/31/24 15:25 Oxygen Delivery Room Air 12/31/24 15:25 Reviewed. MDM - Skin/Abscess/Foreign Bdy MDM Narrative Medical decision making narrative: I evaluated this in the [facility] care. History is obtained from patient who is an independent historian and physical exam was performed.? Available medical records were reviewed. ? Exam findings and relevant testing show no acute concerns or changes; patient is non-toxic appearing and is in no distress. Does not appear at this time to be erythema multiforme, bullous, SJS, TEN; no evidence at this time to suggest RMSF, NSTI, endocarditis or Lyme disease; patient looks well, nontoxic and is tolerating oral intake; no neurologic signs or symptoms; no headache, photophobia or neck pain; afebrile.? Patient does not have history of of penetrating trauma, laceration, blunt trauma, recent surgery, immunosuppression, malignancy, obesity, alcoholism, corticosteroid use.? Discussed the importance of follow-up, patient agrees; question, cellulitis versus necrotizing soft tissue infection versus abscess.?? Patient is appropriate for outpatient treatment and follow-up. Critical Care Time Critical Care Time Critical Care Time: No Discharge Plan Discharge Clinical Impression: Paronychia Patient Disposition: Home Condition: Stable Instructions: Antibiotic Form, Paronychia (ED) Additional Instructions: Soak your nail: Soak your nail in a mixture of equal parts vinegar and water 3 or 4 times each day. This will help decrease inflammation. Apply a warm compress: Soak a washcloth in warm water and place it on your nail. This will help decrease inflammation. Elevate: Raise your nail above the level of your heart as often as you can. This will help decrease swelling and pain. Prop your nail on pillows or blankets to keep it elevated comfortably. Use lotion: Apply lotion after you wash your hands. This will prevent your skin from becoming too dry. Please follow-up with your primary care doctor in the next 1-2 days. If you cannot follow-up with your primary care doctor please go to the ED for any urgent issues. 2) If you have any worsening of symptoms or any other concerns please go to the ED immediately. 3) Please take medications as prescribed andcontinue taking your home medications as usual. Patient Language: Maltese Prescriptions: New sulfamethoxazole-trimethoprim 800-160 mg tablet 1 tablet PO Q12H 7 Days Qty: 14 0RF Follow-up/Referrals: Elda,SIL Berg [Primary Care Provider] - Time of Disposition: 15:34
== END 2024-12-31 15:44 | disposition home or self-care (01) ==
PROVIDERS: Emergency Provider Nurse Practitioner; PCP Registered Nurse
DX: L03.012 Cellulitis of left finger (principal)
CPT/HCPCS: 99213; G0463